=== PATIENT | female | born 1955 | race African-American/Black ===

== ENCOUNTER 2018-10-24 07:57 | Emergency (ER) | payer SELFPAY ==
[2018-10-24] MEDS ORDERED: KETOROLAC 30 MG/ML INJ ONE (09:19)
[2018-10-24] MEDS ORDERED: HYDROCODONE/APAP 10/325 TAB ONE (09:19)
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
--- NOTE | 2018-10-24 11:07 | RAD REPORT ---
EXAM DESCRIPTION: RAD - Thoracic Spine Ap/Lat - 10/24/2018 9:43 am CLINICAL HISTORY: PAIN Radiculopathy COMPARISON: No comparisons FINDINGS: The thoracic spine vertebral body heights and disc spaces are largely maintained. No acute compression fracture. No significant malalignment. A few prominent anterior osteophytes present. IMPRESSION: No acute abnormality is seen.
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
[2018-10-24 14:20] LABS: Urine Blood NEGATIVE (NEG); Urine Glucose NEGATIVE (NEG); Urine Protein 1+ (NEG); Urine Specific Gravity 1.025 (1.005-1.030)
== END 2018-10-24 11:10 | disposition home or self-care (01) ==
LOC: ER 07:57
DX: M54.5 Low back pain (principal); M62.830 Muscle spasm of back; R51 Headache; F17.200 Nicotine dependence, unspecified, uncomplicated
CPT/HCPCS: 70450; 72070; 72100; 72125; 81003; 96372; 99284

== ENCOUNTER 2021-09-06 10:31 | Day surgery (SDC) | payer OTHER ==
[2021-09-06] MEDS ORDERED: Ringers Lactate 1,000 ML IV ONE (11:14)
[2021-09-06] MEDS ORDERED: CELECOXIB 100 MG CAPSULE ONE ×2 (12:43→12:45)
[2021-09-06] MEDS ORDERED: ACETAMINOPHEN 500 MG TAB ONE (12:44)
[2021-09-06] MEDS ORDERED: CELECOXIB 100 MG CAPSULE PO ONE (12:50)
[2021-09-06] MEDS ORDERED: ACETAMINOPHEN 500 MG TAB PO ONE (12:50)
[2021-09-06] MEDS ORDERED: FENTANYL CITR 100 MCG/2 ML ONE (13:04)
[2021-09-06] MEDS ORDERED: MIDAZOLAM HCL 2 MG/2 ML INJ ONE (13:05)
[2021-09-06] MEDS ORDERED: LIDOCAINE 1% MPF 5 ML VIAL ONE (13:05)
[2021-09-06] MEDS ORDERED: propofoL 200 MG/20 ML VIAL IV ONE ×2 (13:05→13:29)
[2021-09-06] MEDS ORDERED: BUPIVACAINE 0.25% PF 10 ML VIAL ONE (13:08)
[2021-09-06] MEDS ORDERED: ALBUTEROL INHALER 60 PUFF/8 GM IH ONE (13:34)
[2021-09-06] MEDS: CEFAZOLIN/SWI 2gm 2 GM/20 ML SYR ONE ×2 (13:45→14:04)
[2021-09-06] MEDS ORDERED: ROCURONIUM 50 MG/5 ML VIAL IV ONE (13:47)
[2021-09-06] MEDS ORDERED: NEOSTIGMINE 1 MG/ML -5 ML ONE (13:53)
[2021-09-06] MEDS ORDERED: dexAMETHasone 10 MG/ML VIAL ONE (13:53)
[2021-09-06] MEDS ORDERED: KETOROLAC 30 MG/ML INJ ONE (13:53)
[2021-09-06] MEDS ORDERED: GLYCOPYRROLATE 0.2 MG/ML SYR ONE (13:53)
[2021-09-06] MEDS ORDERED: ONDANSETRON 4 MG/2 ML VIAL ONE ×2 (13:53→14:29)
[2021-09-06] MEDS ORDERED: SODIUM HYPOCHLORITE 0.25% 473 ML ONE (14:06)
--- NOTE | 2021-09-06 14:13 | P.OP ---
Preoperative diagnosis: RIGHT Buttock Abscesses Postoperative diagnosis: RIGHT Buttock Abscesses Primary procedure: Wide Exicison of multiple RIGHT Buttock Abscesses Anesthesia: GETA + Local Estimated blood loss: <20cc Specimen: Cultures, Debridement Tissues Findings: ~ 7cm x 4 cm x 2 cm wound of RIGHT buttock, ~ 3 cm from anal verge Complications: None Transferred to: Recovery Room Condition: Good
--- NOTE | 2021-09-06 14:51 | OP ---
Date of Procedure: 09/06/2021 Surgeon: Jaleel Negro MD, Preoperative Diagnosis: Right buttock abscess. Postoperative Diagnosis: Right buttock abscess. Procedure Performed: Wide local excision of right buttock multiple abscess sites. Anesthesia: General endotracheal plus local 0.5% Marcaine without epinephrine. Estimated Blood Loss: Less 20 mL. Specimen: Cultures sent both aerobic and anaerobic speciation and debridement tissue. Findings: Approximately 7 cm x 4 cm x 2 cm wound of the right buttock approximately 3 cm from the an al verge. Complications: None. Disposition: The patient transferred to the recovery room in good condition. Procedure In Detail: After informed consent was obtained, the patient was brought to the operating r oom, prepped and draped in the usual sterile fashion. After adequate anesthesia was achieved, an are a of the right buttock was evaluated and approximately an area of 7 cm x 4 cm was being noted to have multiple abscesses draining from this area. A 15 blade was used to cut down an elliptical incision for approximately the above described parameters in the subcutaneous tissues. Electrocautery was use d to dissect down the subcutaneous fat and circumferentially remove the tissue. Culture sent over fo r both aerobic and anaerobic speciation when abscesses were encountered. At this point, the debridem ent tissue was sent off for pathologic examination after being completely ligated from the structures below. I then achieved hemostasis with electrocautery using fulguration circumferentially around. No additional tracts were appreciated at this point. This was approximately 3 cm from the anal verge . I irrigated the area copiously. No additional hemostatic measures were required. The wound was t hen packed with Dakin-soaked Kerlix and a sterile dressing placed over top. The patient tolerated th e procedure without complication and transferred to PACU in good condition. All counts were correct at the end of the case. TK/MODL Voice ID: [id number] Report ID: [id number]
[2021-09-06] MEDS ORDERED: SUCCINYLCHOLINE 20 MG/ML (10 ML) IV ONE (15:23)
[2021-09-06 15:47] VITALS: BP 124/73; TEMP 97; O2SAT 95
== END 2021-09-06 16:17 | disposition home or self-care (01) ==
LOC: OR 10:31
PROVIDERS: ATTEND Surgery
PROC: 0JB90ZZ Excision of Buttock Subcutaneous Tissue and Fascia, Open Approach (ICD-10-PCS; principal; 2021-09-06 13:00)
DX: L72.0 Epidermal cyst (principal); Z20.822 Contact with and (suspected) exposure to COVID-19
CPT/HCPCS: 87070; 87205; 88304; 87075; 11406; U0003; J2704 ×2; J0330; J2250; J3010; J1100; J2710; J0690; J7120; J2405 ×2

== ENCOUNTER 2023-12-18 23:22 | Inpatient (IN) | payer OTHER ==
--- OUTSIDE RECORDS SUMMARY | 2023-12-18 23:25 | XMS REPORT | Continuity of Care Document ---
Author Name Unknown Address [address] [place] [address] [facility] thconnect Address [address] [facility] [place] [address] Care Team Providers Care Heater Room Helper Name Role Phone Pcp, Patient Does Not Have A Primary Care Physic paloma [email or web address] Attending Clinician Unavaila ble TRIKATHY CARRANZA Attending Clinician Unavaila ble KATHY SINHA Attending Clinician Unavaila ble [id number] Admitting Clinician Unavaila ble Payers Payer Name Policy Type Policy Number Effective Date Expirati on Date Source MEDICARE PART A \T\ B [id number] 2019 00:00:00 Problems Condition Name Condition Details Condition Category Status Onset Date Resolution Date Last Treatment Date Treating Clinician Comments Source Perianal abscess Perianal abscess Disease Active 01-31 00:00: 00 [facility] Hidradenit is suppurativ a Hidradenit is suppurativ a Disease Active 01-31 00:00: 00 [facility] Candidal intertrigo Candidal intertrigo Disease Active 01-31 00:00: 00 [facility] Morbid obesity with body mass index (BMI) of 40.0 or higher Morbid obesity with body mass index (BMI) of 40.0 or higher Disease Active 01-31 00:00: 00 [facility] Benign essential hypertensi on, with delivery, with current complicati on Benign essential hypertensi on, with delivery, with current complicati on Disease Active 01-31 00:00: 00 [facility] Social History Social Habit Start Date Stop Date Quantity Comments Source History of tobacco use Cigarette Smoker [facility] Alcohol intake 2022-02-07 00:00:00 2022-02-07 00:00:00 Ex-drinker (finding) [facility] Tobacco use and exposure 2022-01-31 00:00:00 2022-01-31 00:00:00 Never used [facility] Sex Assigned At 1955 00:00:00 1955 00:00:00 [facility] Smoking Status Start Date Stop Date Source Former smoker 2022-01-31 00:00:00 2022-01-31 00:00:00 [facility] Medications Ordered Medication Name Filled Medication Name Start Date Stop Date Current Medication? Ordering Clinician Indication Dosage Frequency Signature (SIG) Comments Components Source losartan-hy drochloroth iazide 50-12.5 mg per tablet 01-31 10:00: 27 Yes losartan 50 mg-hydroch lorothiazi de 12.5 mg tablet TAKE 1 TABLET BY MOUTH EVERY DAY [facility] Encounters Start Date/Time End Date/Time Encounter Type Admission Type Attending Clinicians Care Facility Care Department Encounter ID Source 2023-07-18 00:00:00 2023-07-18 00:00:00 Outpatient [email or web address] [email or web address]_S [facility] [id number] [facility] 2022-02-28 13:45:00 2022-02-28 13:45:00 Outpatient KATHY NEWMAN [facility] [id number] [facility] 2022-02-27 00:00:00 2022-02-27 00:00:00 Telephone Kathy Sinha [facility] [id number] [facility] 2022-02-07 11:15:00 2022-02-07 11:57:45 Outpatient R KATHY SINHA [facility] [id number] [facility] 2022-02-07 11:15:00 2022-02-07 11:57:45 Office Visit Kathy Sinha [facility] [id number] [facility] 2022-02-07 11:15:00 2022-02-07 11:15:00 Outpatient R KATHY SINHA [facility] [id number] [facility] 2022-01-31 09:00:00 2022-01-31 10:21:28 Office Visit Kathy Sinha [facility] [id number] [facility] 2022-01-31 09:00:00 2022-01-31 10:21:28 Outpatient R KATHY SINHA [facility] [id number] [facility]
[2023-12-19] MEDS ORDERED: ONDANSETRON 4 MG/2 ML VIAL ONE ×2 (00:02→11:46)
[2023-12-19] MEDS ORDERED: MORPHINE 4 MG/ML SYR ONE (00:03)
[2023-12-19] MEDS ORDERED: NA CHLORIDE 0.9% 1,000 ML ONE (00:03)
[2023-12-19 00:23] LABS: Specific Gravity 1.025 (1.005-1.030); Sqamous Epithelial <5 /HPF (None Seen); Urine Bacteria <20 /HPF (<20); Urine Bilirubin NEGATIVE (Negative); Urine Blood Negative (Negative); Urine Clarity Turbid (Clear); Urine Color Yellow (Yellow); Urine Crystals Unidentified Few /HPF (None Seen); Urine Culture Reflex Order NOT NEEDED; Urine Glucose NEGATIVE (Negative); Urine Ketones 1+ (Negative); Urine Microscopic Reflex YN ORDER UMIC; Urine Mucus Slight /HPF (None Seen); Urine Nitrite NEGATIVE (Negative); Urine Protein 2+ (Negative); Urine RBC <5 /HPF (None Seen); Urine Urobilinogen 2+ (Normal); Urine WBC <5 /HPF (<5); Urine pH 8.5 (5.0-7.0)
[2023-12-19 00:53] LABS: Albumin 2.6 g/dL (3.4-5.0); Albumin/Globulin Ratio 0.5 (1.1-1.8); Anion Gap 9.7 mEq/L (5.0-15.0); Bilirubin Total 0.4 mg/dL (0.2-1.0); Globulin 5.4 g/dL (2.3-3.5); Potassium 3.7 mEq/L (3.5-5.1)
[2023-12-19 01:03] LABS: Absolute Eosinophils 0.2 K/uL (0-0.5); Absolute Monocytes 0.6 K/uL (0.1-1.3); Absolute Neutrophil 7.5 K/uL (1.8-8.0); Basophils % 0.4 % (0-1.3); Eosinophils % 1.7 % (0-4.4); Hematocrit 36.3 % (36.0-45.0); Hemoglobin 12.1 g/dL (12.0-15.0); Lymphocytes % 11.1 % (15.3-44.8); MCHC 33.3 g/dL (32.0-36.0); MPV 8.3 fL (7.6-11.3); Neutrophils % 80.8 % (41.7-73.7); Platelets 423 thou/uL (152-406); RBC Red Blood Cell Count 4.33 M/uL (3.86-4.86)
[2023-12-19] MEDS ORDERED: FENTANYL CITR 100 MCG/2 ML ONE ×3 (01:11→12:58)
[2023-12-19] MEDS ORDERED: PROMETHAZINE INJ 25 MG/ML AMP ONE ×2 (01:11→01:56)
[2023-12-19] MEDS ORDERED: NA CHLORIDE 0.9% 100 ML ONE ×2 (01:56→11:13)
[2023-12-19] MEDS ORDERED: PIPERACIL/TAZO 3.375 GM VIAL IV ONE ×2 (01:56→11:13)
--- NOTE | 2023-12-19 02:10 | ER ---
Nurse's Notes [facility] Name: Chris Mahan Age: 68 yrs Sex: Female : 1955 Arrival Date: 12/18/2023 Time: 23:22 Bed 14 Private MD: Diagnosis: Other cholelithiasis without obstruction Presentation: 12/17 23:25 Chief complaint: Patient states: lower abdominal pain of 10, epigastric pain that pf1 radiates to RUQ and wraps around to the right back,onset 2-3 weeks with nausea and vomiting. 23:25 Method Of Arrival: EMS: [facility] pf1 23:43 Coronavirus screen: Client denies travel out of the [place] in the last 14 days. At this lg3 time, the client does not indicate any symptoms associated with coronavirus-19. Ebola Screen: No symptoms or risks identified at this time. Initial Sepsis Screen: Does the patient meet any 2 criteria? No. Patient's initial sepsis screen is negative. Does the patient have a suspected source of infection? No. Patient's initial sepsis screen is negative. Risk Assessment: Do you want to hurt yourself or someone else? Patient reports no desire to harm self or others. Onset of symptoms is unknown. 23:43 Acuity: NANCY 3 lg3 Historical: - Allergies: 12/18 00:31 No Known Allergies; pf1 - PMHx: 00:31 Hypertensive disorder; Depressive disorder; pf1 00:31 HS; pf1 - PSHx: 00:31 drainage from buttocks; pf1 - Immunization history:: Adult Immunizations not up to date, Client reports receiving the 2nd dose of the Covid vaccine, pfizer Last tetanus immunization: > 10 years ago Flu vaccine is not up to date. - Social history:: Smoking status: Patient reports the use of cigarette tobacco products, denies chronic smoking, but will smoke occasionally, Patient/guardian denies using alcohol, street drugs. - Family history:: not pertinent. Screenin/29 23:43 [facility] ED Fall Risk Assessment (Adult) History of falling in the last 3 months, lg3 including since admission No falls in past 3 months (0 pts) Confusion or Disorientation No (0 pts) Intoxicated or Sedated No (0 pts) Impaired Gait No (0 pts) Mobility Assist Device Used No (0 pt) Altered Elimination No (0 pt) Score/Fall Risk Level 0 - 2 = Low Risk Oriented to surroundings, Maintained a safe environment, Educated pt \T\ family on fall prevention, incl call for assistance when getting out of bed, Assessed \T\ reinforced patient's understanding of fall precautions. Abuse screen: Denies threats or abuse. Denies injuries from another. Nutritional screening: No deficits noted. Tuberculosis screening: No symptoms or risk factors identified. Assessment: 23:43 General: Appears in no apparent distress. uncomfortable, Behavior is calm, cooperative. lg3 Pain: Complains of pain in epigastric area Pain radiates to back Pain currently is 10 out of 10 on a pain scale. Noted to be crying, grimacing, guarding, moaning, resistant to movement. Neuro: No deficits noted. Smith Agitation-Sedation Scale (RASS): 0 - Alert and Calm Level of Consciousness is awake, alert, obeys commands, Oriented to person, place, time, situation. Cardiovascular: No deficits noted. Denies chest pain, shortness of breath, Heart tones S1 S2 present Capillary refill < 3 seconds Clubbing of nail beds is absent JVD is absent Patient's skin is warm and dry. Respiratory: No deficits noted. Airway is patent Respiratory effort is even, unlabored, Respiratory pattern is regular, symmetrical, Breath sounds are clear bilaterally. GI: Abdomen is round non-distended, obese, Bowel sounds present X 4 quads. Abd is soft X 4 quads Abdomen is tender to palpation in epigastric area and right upper quadrant Reports upper abdominal pain, epigastric pain, nausea, vomiting. : No deficits noted. No signs and/or symptoms were reported regarding the genitourinary system. EENT: No deficits noted. No signs and/or symptoms were reported regarding the EENT system. Derm: No deficits noted. No signs and/or symptoms reported regarding the dermatologic system. Skin is intact, is healthy with good turgor, Skin is dry, Skin is normal, Skin temperature is warm. Musculoskeletal: No deficits noted. No signs and/or symptoms reported regarding the musculoskeletal system. Circulation, motion, and sensation intact. Range of motion: intact in all extremities. 12/18 00:09 GI: Pt is actively vomiting clear fluid, undigested food. lg3 Vital Signs: 12/17 23:30 BP 149 / 74; Pulse 75; Resp 16 S; Pulse Ox 100% on R/A; lg3 03 01:19 BP 164 / 70; Pulse 65; Resp 17 S; Temp 98.8(O); Pulse Ox 100% on R/A; Pain 10/10; lg3 02:14 BP 127 / 63; Pulse 76; Resp 17 S; Pulse Ox 96% on R/A; lg3 12/18 01:19 Pain Scale: Adult lg3 ED Course: 12/17 23:25 Patient arrived in ED. lg3 23:26 Jurgen Garcia MD is Attending Physician. rt 23:43 Lisa Knott, AIDE is Primary Nurse. lg3 23:43 Patient has correct armband on for positive identification. Placed in gown. Bed in low lg3 position. Call light in reach. Side rails up X 1. Client placed on continuous cardiac and pulse oximetry monitoring. NIBP monitoring applied. Door closed. Noise minimized. Warm blanket given. Family accompanied patient. 23:43 Arm band placed on left wrist. lg3 23:43 Initial lab(s) drawn, by me, sent to lab. Urine collected: clean catch specimen, clear. lg3 Maintain EMS IV. Dressing intact. Good blood return noted. Site clean \T\ dry. Gauge \T\ site: 20 L Hand. Patient maintains SpO2 saturation greater than 95% on room air. 12/18 00:07 Abdomen Limited US In Process Unspecified. EDMS 00:13 Inserted saline lock: 22 gauge in right antecubital area, using aseptic technique. oe 02:09 Taryn Montanez MD is Hospitalizing Provider. rt 02:09 Warm blanket given. oe 06:00 Triage completed. lg3 06:00 No provider procedures requiring assistance completed. Patient admitted, IV remains in lg3 place. Administered Medications: 00:10 Drug: NS 0.9% IV 1000 ml IV at 1 bolus Per protocol; 1000 mL bolus Route: IV; Rate: 1 lg3 bolus; Site: left hand; 01:18 Follow up: IV Status: Completed infusion; IV Intake: 1000ml lg3 00:10 Drug: Ondansetron IVP 4 mg IVP once; over 2 minutes Route: IVP; Site: left hand; lg3 01:18 Follow up: Response: No adverse reaction; No change in condition; Vomiting unchanged lg3 00:10 Drug: morphine IVP or IV 4 mg IVP once over 4 mins Route: IVP; Infused Over: 4 mins; lg3 Site: left hand; 01:18 Follow up: Response: No adverse reaction; No change in condition; Pain is unchanged, lg3 physician notified 01:19 Drug: Promethazine IVP 12.5 mg IVP once Route: IVP; Site: right antecubital; lg3 02:16 Follow up: Response: No adverse reaction; No change in condition lg3 01:19 Drug: fentaNYL (PF) IVP 50 mcg IVP once Route: IVP; Site: right antecubital; lg3 02:16 Follow up: Response: No adverse reaction; Marked relief of symptoms; Pain is decreased lg3 02:07 Drug: Promethazine IVP 12.5 mg IVP once Route: IVP; Site: right antecubital; lg3 02:16 Follow up: Response: No adverse reaction; Marked relief of symptoms lg3 02:07 Drug: Piperacillin-Tazobactam IVPB 3.375 grams IVPB once over 60 mins; (mix in NS 100 lg3 mL) Route: IVPB; Infused Over: 60 mins; Site: right antecubital; 04:01 Follow up: Response: No adverse reaction; IV Status: Completed infusion; IV Intake: lg3 100ml Medication: 06:01 VIS not applicable for this client. lg3 Intake: 01:18 IV: 1000ml; Total: 1000ml. lg3 04:01 IV: 100ml; Total: 1100ml. lg3 Outcome: 02:10 Decision to Hospitalize by Provider. rt 06:00 Admitted to ER Hold. Please see [facility] for further documentation. lg3 06:00 Condition: stable 06:00 Instructed on the need for admit, Demonstrated understanding of instructions, 11:49 Patient left the ED. kc6 Signatures: Dispatcher [employer] EDMS Kaushik Kwan Lacie, RN RN lg3 Anjali Alvarez RN RN kc6 Jurgen Garcia MD MD rt Loretta Johns RN RN pf1 Corrections: (The following items were deleted from the chart) 00:33 00:31 PMHx: drainage from buttocks; pf1 pf1 01:20 01:19 BP 164 / 70; Pulse 65bpm; Resp 17bpm; Spontaneous; Pulse Ox 100% RA; Pain 10/, lg3 Adult; lg3
--- NOTE | 2023-12-19 02:10 | EDPHYS ---
Physician Documentation [facility] Name: Chris Mahan Age: 68 yrs Sex: Female : 1955 Arrival Date: 12/18/2023 Time: 23:22 Bed 14 Private MD: ED Physician Jurgen Garcia HPI: 12/18 04:30 This 68 yrs old Black Female presents to ER via EMS with complaints of Abdominal pain. rt 04:30 Patient presents to the ED with intermittent right upper quadrant pain for the past rt week, worse after eating. Patient states that the symptoms have significantly worsened tonight with nausea, vomiting. Denies other acute complaints at this time, symptoms are moderate in severity, no other aggravating or alleviating factors. Historical: - Allergies: 00:31 No Known Allergies; pf1 - PMHx: 00:31 Hypertensive disorder; Depressive disorder; pf1 00:31 HS; pf1 - PSHx: 00:31 drainage from buttocks; pf1 - Immunization history:: Adult Immunizations not up to date, Client reports receiving the 2nd dose of the Covid vaccine, pfizer Last tetanus immunization: > 10 years ago Flu vaccine is not up to date. - Social history:: Smoking status: Patient reports the use of cigarette tobacco products, denies chronic smoking, but will smoke occasionally, Patient/guardian denies using alcohol, street drugs. - Family history:: not pertinent. ROS: 04:30 Constitutional: Negative for fever, chills, and weight loss, Cardiovascular: Negative rt for chest pain, palpitations, and edema, Respiratory: Negative for shortness of breath, cough, wheezing, and pleuritic chest pain, MS/Extremity: Negative for injury and deformity, Skin: Negative for injury, rash, and discoloration, Neuro: Negative for headache, weakness, numbness, tingling, and seizure, Psych: Negative for depression, anxiety, suicide ideation, homicidal ideation, and hallucinations, 04:30 Abdomen/GI: Positive for abdominal pain, nausea and vomiting, Exam: 04:30 Constitutional: This is a well developed, well nourished patient who is awake, alert, rt and in no acute distress. Head/Face: Normocephalic, atraumatic. Chest/axilla: Normal chest wall appearance and motion. Nontender with no deformity. No lesions are appreciated. Cardiovascular: Regular rate and rhythm with a normal S1 and S2. No gallops, murmurs, or rubs. Normal PMI, no JVD. No pulse deficits. Respiratory: Lungs have equal breath sounds bilaterally, clear to auscultation and percussion. No rales, rhonchi or wheezes noted. No increased work of breathing, no retractions or nasal flaring. Skin: Warm, dry with normal turgor. Normal color with no rashes, no lesions, and no evidence of cellulitis. MS/ Extremity: Pulses equal, no cyanosis. Neurovascular intact. Full, normal range of motion. Neuro: Awake and alert, GCS 15, oriented to person, place, time, and situation. Cranial nerves II-XII grossly intact. Motor strength 5/5 in all extremities. Sensory grossly intact. Cerebellar exam normal. Normal gait. 04:30 Abdomen/GI: Tenderness to the right upper quadrant with mild guarding, no rebound, distention, Vital Signs: 12/17 23:30 BP 149 / 74; Pulse 75; Resp 16 S; Pulse Ox 100% on R/A; lg3 12/18 01:19 BP 164 / 70; Pulse 65; Resp 17 S; Temp 98.8(O); Pulse Ox 100% on R/A; Pain 10/10; lg3 02:14 BP 127 / 63; Pulse 76; Resp 17 S; Pulse Ox 96% on R/A; lg3 12/18 01:19 Pain Scale: Adult lg3 MDM: 12/17 23:26 Patient medically screened. rt 12/18 04:30 Differential Diagnosis Cholecystitis, cholelithiasis, pancreatitis. Data reviewed: rt vital signs, nurses notes, lab test result(s), radiologic studies. Consideration of Admission/Observation Patient was admitted/placed on observation. Management of patient was discussed with the following: Cafeteria Counter Attendant: Discussed with general surgery on-call, request hospitalist admission, will operate. I considered the following discharge prescriptions or medication management in the emergency department Medications were administered in the Emergency Department. See MAR. Test considered but Not performed: CT: Clear stone in the gallbladder neck without signs of pancreatitis, CT scan is not indicated. Care significantly affected by the following chronic conditions: Hypertension. Counseling: I had a detailed discussion with the patient and/or guardian regarding the historical points, exam findings, and any diagnostic results supporting the discharge/admit diagnosis, lab results, radiology results, the need for further work-up and treatment in the hospital. Response to treatment: the patient's symptoms have mildly improved after treatment. 12/17 23:27 Order name: CBC with Diff; Complete Time: 01:09 rt 12/17 23:27 Order name: CMP; Complete Time: 01:09 rt 12/17 23:27 Order name: Lipase; Complete Time: 01:09 rt 12/17 23:27 Order name: Urinalysis w/ reflexes; Complete Time: 00:47 rt 12/18 03:41 Order name: CBC with Automated Diff; Complete Time: 04:47 EDMS 12/18 03:41 Order name: Comprehensive Metabolic Panel; Complete Time: 04:47 EDMS 12/18 03:41 Order name: Lipase; Complete Time: 04:47 EDMS 12/18 03:41 Order name: Protime (+INR); Complete Time: 04:47 EDMS 12/18 03:41 Order name: PTT, Activated Partial Thromb; Complete Time: 04:47 EDMS 12/18 10:44 Order name: Phosphorus EDMS 12/18 10:44 Order name: Magnesium EDMS 12/17 23:27 Order name: Abdomen Limited US rt 12/18 03:41 Order name: CONS Physician Consult EDMS 12/17 23:27 Order name: IV Saline Lock; Complete Time: 23:46 rt 12/17 23:27 Order name: Labs collected and sent; Complete Time: 23:46 rt Administered Medications: 00:10 Drug: NS 0.9% IV 1000 ml IV at 1 bolus Per protocol; 1000 mL bolus Route: IV; Rate: 1 lg3 bolus; Site: left hand; 01:18 Follow up: IV Status: Completed infusion; IV Intake: 1000ml lg3 00:10 Drug: Ondansetron IVP 4 mg IVP once; over 2 minutes Route: IVP; Site: left hand; lg3 01:18 Follow up: Response: No adverse reaction; No change in condition; Vomiting unchanged lg3 00:10 Drug: morphine IVP or IV 4 mg IVP once over 4 mins Route: IVP; Infused Over: 4 mins; lg3 Site: left hand; 01:18 Follow up: Response: No adverse reaction; No change in condition; Pain is unchanged, lg3 physician notified 01:19 Drug: Promethazine IVP 12.5 mg IVP once Route: IVP; Site: right antecubital; lg3 02:16 Follow up: Response: No adverse reaction; No change in condition lg3 01:19 Drug: fentaNYL (PF) IVP 50 mcg IVP once Route: IVP; Site: right antecubital; lg3 02:16 Follow up: Response: No adverse reaction; Marked relief of symptoms; Pain is decreased lg3 02:07 Drug: Promethazine IVP 12.5 mg IVP once Route: IVP; Site: right antecubital; lg3 02:16 Follow up: Response: No adverse reaction; Marked relief of symptoms lg3 02:07 Drug: Piperacillin-Tazobactam IVPB 3.375 grams IVPB once over 60 mins; (mix in NS 100 lg3 mL) Route: IVPB; Infused Over: 60 mins; Site: right antecubital; 04:01 Follow up: Response: No adverse reaction; IV Status: Completed infusion; IV Intake: lg3 100ml Disposition Summary: 12/19/23 02:10 Hospitalization Ordered Notes: Hospitalization Status: Observation rt Provider: Taryn Montanez rt Condition: Stable rt Problem: new rt Symptoms: have improved rt Bed/Room Type: Standard rt Location: [facility] ER HOLD(12/19/23 02:40) cg Room Assignment: ERHOLD-(12/19/23 02:40) cg Diagnosis - Other cholelithiasis without obstruction rt Forms: - Medication Reconciliation Form rt - SBAR form rt - Leadership Thank You Letter rt Signatures: Dispatcher [employer] Christiane Catalan RN RN cg Lisa Knott RN RN lg3 Jurgen Garcia MD MD rt Loretta Johns RN RN pf1 Corrections: (The following items were deleted from the chart) 00:33 00:31 PMHx: drainage from buttocks; pf1 pf1 02:40 02:10 Telemetry/MedSurg (observation) rt cg 02:40 02:10 rt cg
[2023-12-19] MEDS ORDERED: ACETAMINOPHEN 500 MG TAB PO PRN (03:32)
--- NOTE | 2023-12-19 03:40 | P.HP ---
Certification for Inpatient Patient admitted to: Observation With expected LOS: <2 Midnights Patient will require the following post-hospital care: None Practitioner: I am a practitioner with admitting privileges, knowledge of patient current condition, hospital course, and medical plan of care. Services: Services provided to patient in accordance with Admission requirements found in Title 42 Section 412.3 of the Code of Federal Regulations Patient History Date of Service: 12/19/23 Reason for admission: Abdominal pain; intractable nausea and vomiting; biliary colic History of Present Illness: Patient is a 68-year-old female came to the hospital with abdominal pain. Patient's pain started a couple days ago. She started having intractable nausea and vomiting. Patient came to the emergency room after she was not really getting any better. In the emergency room workup revealed cholelithiasis. No evidence of choledocholithiasis. Patient appears to be having biliary colic with nausea and vomiting. LFTs were fairly unremarkable. Emergency room physician spoke with general surgery and they wanted to admit the patient for further workup for acute cholecystitis. Patient will be kept n.p.o. while surgery follows up with patient. Patient also has a history of hidradenitis suppurativa. Patient follows up with surgery as an outpatient. At this time patient be admitted for further workup. Allergies No Known Allergies Allergy (Verified 07/01/22 15:35) Home Medications: Sertraline HCl 100 mg PO DAILY 12/19/23 Spironolactone 50 mg PO DAILY 12/19/23 - Past Medical/Surgical History -: HS -: Hypertension -: Depression -: Surgery for HS - Family History Father Family History: Reviewed- Non-Contributory - Social History Smoking Status: Former smoker Alcohol use: No CD- Drugs: No Review of Systems 10-point ROS is otherwise unremarkable Physical Examination - Physical Exam General: Alert, In no apparent distress, Oriented x3 HEENT: Atraumatic, PERRLA, Mucous membr. moist/pink, EOMI, Sclerae nonicteric Neck: Supple, 2+ carotid pulse no bruit, No LAD, Without JVD or thyroid abnormality Respiratory: Clear to auscultation bilaterally, Normal air movement Cardiovascular: Regular rate/rhythm, Normal S1 S2 Gastrointestinal: Normal bowel sounds, No tenderness Musculoskeletal: No tenderness Integumentary: No rashes Neurological: Normal gait, Normal speech, Normal strength at 5/5 x4 extr, Normal tone, Normal affect Lymphatics: No axilla or inguinal lymphadenopathy - Studies Laboratory Data (last 24 hrs) 12/19/23 12/19/23 00:23 00:23 WBC 9.30 Hgb 12.1 Hct 36.3 Plt Count 423 H Sodium 141 Potassium 3.7 BUN 14 Creatinine 1.03 H Glucose 119 H Total Bilirubin 0.4 AST 11 L ALT 19 Alkaline Phosphatase 114 Lipase 39 Assessment & Plan - Problems (Diagnosis) (1) Cholelithiasis Current Visit: Yes Status: Acute (2) Biliary colic Current Visit: Yes Status: Acute (3) Intractable nausea and vomiting Current Visit: Yes Status: Acute (4) History of hypertension Current Visit: Yes Status: Acute (5) Hidradenitis suppurativa Current Visit: Yes Status: Acute (6) History of depression Current Visit: Yes Status: Acute - Plan Plan: 1. Patient with biliary colic with cholelithiasis; LFTs are within normal limits. At this time, we will continue with IV fluids and IV antibiotics. Surgery consultation pending. Repeat labs. Patient needs to altered diet and stick to a low-fat diet going forward. Patient may benefit from ursodiol if patient is not going to get surgical intervention. Continue with antiemetics for patient with intractable nausea and vomiting. 2. Patient with a history of hidradenitis suppurativa; patient with a history of surgical intervention. Patient will probably need to follow-up with rheu matology or dermatology for further evaluation with biologic therapy to see if this would benefit and control her disease. As long as her clinical condition is stable she can continue to monitor closely. However, this appears to be more of a systemic inflammatory disease and probably needs further monitoring by dermatology or rheumatology. 3. History of hypertension; resume antihypertensives 4. History of depression; resume antidepressants 5. GI DVT prophylaxis Discharge Plan: Home Plan to discharge in: Greater than 2 days - Advance Directives Does patient have a Living Will: No Does patient have a Durable POA for Healthcare: No - Code Status/Comfort Care Code Status Assessed: Yes Code Status: Full Code Critical Care: No Time Spent Managing PTS Care (In Minutes): 45
[2023-12-19] MEDS: Levofloxacin500mg IV 500 MG/100 ML BAG IV ONE (04:00)
[2023-12-19] MEDS: NA CHLORIDE 0.9% 1,000 ML IV SCH (04:00)
[2023-12-19 04:28] LABS: Absolute Basophils 0.1 K/uL (0-0.5); Absolute Monocytes 0.6 K/uL (0.1-1.3); Absolute Neutrophil 8.9 K/uL (1.8-8.0); Basophils % 0.6 % (0-1.3); Eosinophils % 0.4 % (0-4.4); Hemoglobin 11.8 g/dL (12.0-15.0); Lymphocytes % 9.4 % (15.3-44.8); MCH 28.4 pg (27.0-35.0); MCHC 33.8 g/dL (32.0-36.0); MCV 83.9 fL (80-100); MPV 7.6 fL (7.6-11.3); Monocytes % 5.5 % (3.3-12.3); Neutrophils % 84.1 % (41.7-73.7); Nucleated Red Blood Cells % 0.2 % (0-0); Platelets 386 thou/uL (152-406); RBC Red Blood Cell Count 4.17 M/uL (3.86-4.86)
[2023-12-19 04:37] LABS: PT Prothrombin Time 12.9 SECONDS (9.5-12.5); PTT, Activated Partial Thromb 29.9 SECONDS (24.3-36.9); Protime INR 1.18
[2023-12-19 04:46] LABS: Albumin 2.5 g/dL (3.4-5.0); Albumin/Globulin Ratio 0.5 (1.1-1.8); Anion Gap 6.8 mEq/L (5.0-15.0); Bilirubin Total 0.5 mg/dL (0.2-1.0); Globulin 5.1 g/dL (2.3-3.5); Potassium 3.8 mEq/L (3.5-5.1); Protein, Total 7.6 g/dL (6.4-8.2)
[2023-12-19] MEDS: METRONIDAZOLE 500mg IVPB 500 MG/100 ML BAG IV SCH (05:34)
[2023-12-19] MEDS: ONDANSETRON 4 MG/2 ML VIAL IV PRN (06:47)
[2023-12-19] MEDS: HYDROMORPHONE HCL 1 MG/ML INJ IV PRN (06:47)
--- NOTE | 2023-12-19 07:44 | P.PN ---
Date of Service: 12/20/23 Subjective: ROS: 10 point ROS as noted above, otherwise negative Physical Exam: GEN: Alert, oriented, NAD HEENT: Normal conjunctiva, sclera anicteric CV: Regular rate and rhythm, no edema Pulm: Nonlabored respirations on room air, clear bilaterally ABD: Soft, RUQ tenderness, surgical dressing in place Neuro: Normal speech, normal affect vitals reviewed Problem List: acute gangrenous cholecystitis with Cholelithiasis, now s/p lap alicia with ICG cholangiography (12/18) Biliary colic Intractable nausea/vomiting hx of hidradenitis suppurativa Hypertension Depression acute gangrenous cholecystitis with Cholelithiasis, now s/p lap alicia with ICG cholangiography (12/18) Biliary colic Intractable nausea/vomiting Reports lower abdominal / epigastric pain radiating to RUQ with associated nausea/vomiting for ~2-3 weeks abdominal u/s (12/17): cholelithiasis and gallbladder sludge. no gallbladder wall thickening. negative de luna signs. incidentally noted increased hepatic echogenicity which can be seen in hepatic steatosis / fibrofatty change Dr. Negro, general surgery consulted to eval for possible surgical intervention s/p lap alicia with ICG cholangiography (12/18) found to have gallbladder completely encased in omental attachments, with gangrenous changes at the gallbladder fundus, along with severe extensive adhesions, short cystic duct, impacted stone in gallbladder neck region. serial abdominal exams diet per surgery given zosyn in ED, levaquin / flagyl (12/18) continue empiric zosyn (12/18-) PRN analgesics / antiemetics continue IV fluids hx of hidradenitis suppurativa follows up with surgery as outpatient Hypertension Depression confirm home meds, restart as appropriate VTE: Lovenox Code: Full Dispo: Home, ~1-2 days Pending surgical recs / recovery
[2023-12-19] MEDS: ENOXAPARIN 40 MG/0.4 ML SQ SCH (08:35)
[2023-12-19 10:43] LABS: Magnesium 2.2 mg/dL (1.6-2.4); Phosphorus 2.2 mg/dL (2.5-4.9)
[2023-12-19] MEDS ORDERED: HYDROMORPHONE HCL 0.5 MG/0.5 ML INJ ONE (10:43)
[2023-12-19] MEDS ORDERED: METRONIDAZOLE 500mg IVPB 500 MG/100 ML BAG IV ONE (10:44)
[2023-12-19] MEDS: PIPER TAZO 3.375 GM in NA CHLORIDE 0.9% 100 ML IV SCH (11:15)
[2023-12-19] MEDS ORDERED: ROCURONIUM 50 MG/5 ML VIAL IV ONE (11:43)
[2023-12-19] MEDS ORDERED: propofoL 200 MG/20 ML VIAL IV ONE (11:43)
[2023-12-19] MEDS ORDERED: MIDAZOLAM HCL 2 MG/2 ML INJ ONE (11:43)
[2023-12-19] MEDS ORDERED: NEOSTIGMINE 1 MG/ML -10 ML VIAL ONE (11:46)
[2023-12-19] MEDS ORDERED: KETOROLAC 30 MG/ML INJ ONE (11:46)
[2023-12-19] MEDS ORDERED: dexAMETHasone 4 MG/ML VIAL ONE (11:46)
[2023-12-19] MEDS ORDERED: LIDOCAINE 1% MPF 5 ML VIAL ONE (11:46)
[2023-12-19] MEDS ORDERED: GLYCOPYRROLATE 0.2 MG/ML SYR ONE (11:46)
[2023-12-19] MEDS: Ringers Lactate 1,000 ML IV ONE (12:00)
--- NOTE | 2023-12-19 14:20 | P.OP ---
Preoperative diagnosis: Cholelithiasis with cholecystitis Postoperative diagnosis: Cholelithiasis with cholecystitis Primary procedure: Laparoscopic Cholecystectomy with ICG Cholangiography Anesthesia: GETA + Local Estimated blood loss: <20cc Specimen: Gallbladder Findings: Gangrene @ fundus, Severe adhesions, short cystic duct, stone impacted Complications: None Implants: Crow Hemostatic Powder Matrix Transferred to: Recovery Room Condition: Good
[2023-12-19] MEDS ORDERED: NALOXONE 0.4 MG/ML VIAL ONE (14:25)
[2023-12-19] MEDS: BUPIVACAINE 0.25% PF 30 ML VIAL ONE (14:45)
[2023-12-19] MEDS: LABETALOL 20 MG/4ML SYRINGE IV ONE (14:45)
[2023-12-19] MEDS: NA CHLORIDE 0.9% 1,000 ML ONE (15:01)
[2023-12-19 15:29] VITALS: O2SAT 96
[2023-12-19 16:04] LABS: Absolute Basophils 0.1 K/uL (0-0.5); Absolute Eosinophils 0.1 K/uL (0-0.5); Absolute Lymphocytes (CBC) 1.5 K/uL (0.7-4.9); Absolute Monocytes 0.6 K/uL (0.1-1.3); Absolute Neutrophil 13.9 K/uL (1.8-8.0); Basophils % 0.5 % (0-1.3); Eosinophils % 0.3 % (0-4.4); Hematocrit 36.2 % (36.0-45.0); Lymphocytes % 9.1 % (15.3-44.8); MCH 28.1 pg (27.0-35.0); MCHC 33.2 g/dL (32.0-36.0); MCV 84.7 fL (80-100); MPV 8.1 fL (7.6-11.3); Monocytes % 3.7 % (3.3-12.3); Neutrophils % 86.4 % (41.7-73.7); Nucleated Red Blood Cells % 0.2 % (0-0); Platelets 307 thou/uL (152-406); RBC Red Blood Cell Count 4.27 M/uL (3.86-4.86); Red Cell Distribution Width 14.2 % (12.1-15.2)
--- NOTE | 2023-12-19 16:09 | OP ---
Date of Procedure: 12/19/2023 Surgeon: Jaleel Negro MD, Preoperative Diagnosis: Cholelithiasis with cholecystitis. Postoperative Diagnosis: Cholelithiasis with cholecystitis. Procedure Performed: Laparoscopic cholecystectomy with indocyanine green cholangiography. Anesthesia: General endotracheal plus local with 0.25% Marcaine. Estimated Fluid Loss: Less than 20 cc. Specimen: Gallbladder. Findings: 1.There were gangrenous changes at the gallbladder fundus. 2.Gallbladder was socked in, completely encased in omental attachments, which were firm, fibrous, th ick, with severe adhesions. 3.There was a short cystic duct. 4.There was a stone impacted in the Analy's pouch of the gallbladder in the gallbladder neck isidro on. 5.There were severe hydropic changes to the gallbladder. 6.The gallbladder had thick viscous black bile and sludge. Procedure In Detail: After informed consent was obtained, the patient brought to the operating room, prepped and draped in the usual sterile fashion. After adequate anesthesia was achieved, I made a s upraumbilical incision down through subcutaneous tissues. I dissected down with a 5 mm zero degree o ptical bariatric trocar which was entered in the abdomen safely with no incident or complication. In sufflation was obtained to 15 mmHg at this time. There was no injury or bowel obstruction within the abdomen. 3 additional trocars were placed, 1 in the epigastrium, 1 in the right upper quadrant, 1 i n the right mid abdomen. All of these were placed under direct visualization without incident or com plication. The patient was then positioned head up right side up position. Ratcheted graspers attem pted to grasp the patient's gallbladder at the fundus of the gallbladder which was completely encased in omentum and not visualized during the entry into the abdomen. At this point, the ratcheted grasp ers dissected down some omental tension up off the anterior surface of the gallbladder to expose the fundus of the gallbladder. Careful dissection was required to remove the omental attachments using c ombination of blunt dissection and electrocautery to remove the omentum which was completely encased in the gallbladder at this point, which had a hydropic appearance and some gangrenous changes to the fundus of the gallbladder. After I removed most of the adhesions off the anterior surface of the gal lbladder, the gallbladder remained difficult to grasp, and as such, I placed decompression needle aft er I removed approximately half the omental attachments of the anterior surface of the gallbladder an d the gallbladder was visualized. At this point, a decompression needle was placed into the fundus o f the gallbladder with thick viscous black sludge material was partially decompressed. However, the material was so thick, suction on maximum could only move a small amount of it. The gallbladder agustin ined distended throughout the procedure and filled with bile and sludge as well as gallstones after I was able to grasp the gallbladder. However, I did grasp the patient's gallbladder at the fundus and placed it towards the patient's right shoulder. However, there was minimal space to work in due to intraabdominal obesity/adipose tissue as well as a small working space due to the anatomic orientatio n of the patient's organs. As the gallbladder was placed towards the right shoulder, the dissection continued down to remove the omental attachments of the entrance of the surface of the gallbladder us ing combination of blunt dissection as well as electrocautery. Ultimately used the LigaSure device a s well to take down some of these adhesions as they were quite thick and fibrous making dissection qu ite challenging at this point. After I removed and visualized the neck of the gallbladder, I perform ed indocyanine green cholangiography to visualize the cystic common duct junction. There was short c ystic duct noted at this point. However, I was able to dissect this free circumferentially around. The Analy pouch of the gallbladder was quite hydropic with significant inflammatory changes and a dissection was performed in this area to visualize 2 structures identified as both the cystic duct an d cystic artery. At this point, the critical view of safety was obtained at this point with the shor t cystic duct and the normal position of the cystic artery coming in with the clear liver visualized in the posterior window. At this point, indocyanine green cholangiography confirmed the anatomic str uctures as described. There was minimal bile movement into the gallbladder. However, dissection and manipulation of the gallbladder and the cystic duct was able to visualize the bile entering the cyst ic duct, and as such, the anatomy was confirmed with ICG cholangiography. At this point the windows being created and the structure being skeletonized, I then placed double titanium clips on the proxim al side and singly on the distal side of both cystic duct and cystic artery. I then used the Endo Sh ears to ligate the cystic duct at this point, and I used the LigaSure device to ligate the cystic art luciano as it had already been utilized in this case. At this point, the gallbladder was removed careful ly from the hepatic bed using electrocautery with frequent suctioning due to the hydropic bubbling ap pearance of the significant inflammatory changes. At this point, the gallbladder was removed, and pl aced in EndoCatch bag and removed via the umbilical trocar and sent off for pathologic examination. The area was copiously irrigated multiple times until completely clear and no additional hemostat was required. The liver bed was inspected at this point. Indocyanine green cholangiography was perform ed again and the common duct was visualized in its normal course with the cystic duct stump being vis ualized at this point. No leakage of bile was appreciated. The clips found to be in good anatomic p osition and the clips for the artery was placed in a good position as well without any need for furth er hemostatic maneuvers. At this point, due to the significant dissection time, I opted to irrigate the area once again and suctioned out until completely dry and placed Airsta hemostatic powder in the hepatic fossa at this point and packed the omentum back in this area. At this point, the patient po sitioned back in the neutral position. I then removed the umbilical trocar and closed the umbilical trocar site using Boyd-Lucian suture passer with #1 Vicryl in interrupted fashion. Good approxim ation of tissues. The abdomen was completely desufflated under direct visualization with no incident or complication. Remaining trocars removed. All skin edges were then copiously irrigated and close d with 4-0 Monocryl in running fashion. Dermabond placed over top. The patient tolerated the proced ure well without incident or complication, was transferred to recovery room in good condition. All c ounts were correct at the end of the case. TK/MODL Voice ID: [id number] Report ID: [id number]
[2023-12-19 17:25] LABS: Differential Total Cells Count 100
[2023-12-19 17:26] LABS: Blood Morphology Comment NOT SEEN (NOT SEEN); Lymphocytes 11 % (15-42); Monocytes 3 % (0-10); Platelet Estimate ADEQ; Segmented Neutrophils 86 % (40-80)
--- NOTE | 2023-12-19 18:07 | P.PN ---
Date of Service: 12/19/23 patient seen briefly as she was being taken to OR, still with moderate RUQ pain/tenderness Dr. Negro taking her to OR for lap alicia, ICG continues antibiotics pain meds, IVF f/u post-op confirm home meds
[2023-12-19] MEDS: HYDROCODONE/APAP 5/325 MG TAB PO PRN (21:56)
[2023-12-20 04:07] LABS: Absolute Monocytes 0.7 K/uL (0.1-1.3); Absolute Neutrophil 8.6 K/uL (1.8-8.0); Basophils % 0.3 % (0-1.3); Eosinophils % 0.1 % (0-4.4); Hematocrit 32.2 % (36.0-45.0); Hemoglobin 10.4 g/dL (12.0-15.0); Lymphocytes % 9.3 % (15.3-44.8); MCH 27.7 pg (27.0-35.0); MCHC 32.2 g/dL (32.0-36.0); MPV 8.2 fL (7.6-11.3); Monocytes % 7.2 % (3.3-12.3); Neutrophils % 83.1 % (41.7-73.7); Platelets 377 thou/uL (152-406); RBC Red Blood Cell Count 3.74 M/uL (3.86-4.86); Red Cell Distribution Width 14.2 % (12.1-15.2)
[2023-12-20 04:26] LABS: Albumin 2.3 g/dL (3.4-5.0); Albumin/Globulin Ratio 0.5 (1.1-1.8); Anion Gap 7.2 mEq/L (5.0-15.0); Bilirubin Total 0.4 mg/dL (0.2-1.0); Globulin 4.8 g/dL (2.3-3.5); Potassium 4.2 mEq/L (3.5-5.1); Protein, Total 7.1 g/dL (6.4-8.2)
[2023-12-20 04:28] VITALS: BMI 37.6
[2023-12-20] MEDS: SERTRALINE HCL 100 MG TAB PO SCH (08:47)
[2023-12-20 08:53] VITALS: BP 127/79; TEMP 98.1
[2023-12-20] MEDS ORDERED: Levofloxacin 250mg IV 250 MG/50 ML BAG IV SCH (09:00)
--- NOTE | 2023-12-20 12:01 | P.DS ---
Admission Date: 12/19/23 Discharge Date: 12/20/23 Disposition: ROUTINE DISCHARGE Discharge Condition: GOOD Reason for Admission: Abdominal pain; intractable nausea and vomiting; biliary colic Consultations: General surgery - Dr. Negro Brief History of Present Illness: 68yo F, PMH: hx of hidradenitis suppurativa, Hypertension, Depression Patient came to the hospital with abdominal pain. Patient's pain started a couple days ago. She started having intractable nausea and vomiting. Patient came to the emergency room after she was not really getting any better. In the emergency room workup revealed cholelithiasis. No evidence of choledocholithiasis. Patient appears to be having biliary colic with nausea and vomiting. LFTs were fairly unremarkable. Emergency room physician spoke with general surgery and they wanted to admit the patient for further workup for acute cholecystitis. Patient will be kept n.p.o. while surgery follows up with patient. Patient also has a history of hidradenitis suppurativa. Patient follows up with surgery as an outpatient. At this time patient be admitted for further workup. Hospital Course: Problem List: acute gangrenous cholecystitis with Cholelithiasis, now s/p lap alicia with ICG cholangiography (12/18) Biliary colic hx of hidradenitis suppurativa Hypertension Depression Patient presented with RUQ pain/tenderness and was found to have acute gangrenous cholecystitis with cholelithasis, initially seen on abdominal ultrasound. Dr. Negro, general surgeon, evaluated the patient and took her to the OR for lap alicia with ICG cholangiography on 12/18. During surgery, Dr. Negro found the gallbladder completely encased in omental attachments, with gangrenous stewart ges at the gallbladder fundus, along with severe extensive adhesions, short cystic duct, impacted stone in gallbladder neck region. Patient did well post operatively, abdominal pain improving, remained afebrile throughout hospitalization, leukocyosis resolved and was deemed stable for discharge. Patient received ~1 day of zosyn and is to complete 4 more days of oral augmentin on discharge. Patient ambulating without issues and tolerating clear liquids on day of discharge. Advised patient to slowly advance diet over the next few days, continue liquids for 1-2 more days, then can start introducing soft foods and advance as tolerated Medications: Augmentin twice daily x4 days Sloan 5/325 as needed colace as needed Prescriptions sent to [facility] in [place] [facility] due to it being Easter and limited pharmacies are open today. If any problems acquiring prescriptions, call hospital ask for nurse station on 2nd/4th floor for further assistance. Follow up: PCP 3-[address] Negro in ~1-2 weeks Please call to schedule / confirm appointment. Okay to return to work once cleared by Dr. Negro at follow up appointment in ~1-2 weeks. No heavy lifting > 10 lbs for 4-6 weeks. Physical Exam: GEN: Alert, oriented, NAD HEENT: Normal conjunctiva, sclera anicteric CV: Regular rate and rhythm, no edema Pulm: Nonlabored respirations on room air, clear bilaterally ABD: Soft, minimal RUQ tenderness, surgical dressing in place Neuro: Normal speech, normal affect Vital Signs/Physical Exam: Temp Pulse Resp BP Pulse Ox 98.1 F 64 19 127/79 96 12/20/23 08:44 12/20/23 08:44 12/20/23 08:44 12/20/23 08:44 12/20/23 08:44 Laboratory Data at Discharge: WBC 10.40 thou/uL (4.3-10.9) 12/20/23 03:17 Hgb 10.4 g/dL (12.0-15.0) L D 12/20/23 03:17 Hct 32.2 % (36.0-45.0) L 12/20/23 03:17 Plt Count 377 thou/uL (152-406) 12/20/23 03:17 PT 12.9 SECONDS (9.5-12.5) H 12/19/23 04:20 INR 1.18 12/19/23 04:20 APTT 29.9 SECONDS (24.3-36.9) 12/19/23 04:20 Sodium 141 mEq/L (136-145) 12/20/23 03:17 Potassium 4.2 mEq/L (3.5-5.1) 12/20/23 03:17 BUN 9 mg/dL (7-18) 12/20/23 03:17 Creatinine 0.89 mg/dL (0.55-1.02) 12/20/23 03:17 Glucose 113 mg/dL (74-106) H 12/20/23 03:17 Phosphorus 2.2 mg/dL (2.5-4.9) L 12/19/23 10:22 Magnesium 2.2 mg/dL (1.6-2.4) 12/19/23 10:22 Total Bilirubin 0.4 mg/dL (0.2-1.0) 12/20/23 03:17 AST 30 U/L (15-37) 12/20/23 03:17 ALT 28 U/L (13-56) 12/20/23 03:17 Alkaline Phosphatase 90 U/L (45-117) 12/20/23 03:17 Lipase 25 U/L (13-75) 12/19/23 04:20 Home Medications: Sertraline HCl 100 mg PO DAILY 12/19/23 Spironolactone 50 mg PO DAILY 12/19/23 Amox/Clavulanate [Augmentin 875-125 Tab] 1 tab PO BID 4 Days #8 tab 12/20/23 Hydrocodone/Acetaminophen [Hydrocodon-Acetaminophen 5-325] 1 each PO Q6H PRN #15 tab 12/20/23 New Medications: Amox/Clavulanate [Augmentin 875-125 Tab] 1 tab PO BID 4 Days #8 tab Hydrocodone/Acetaminophen [Hydrocodon-Acetaminophen 5-325] 1 each PO Q6H PRN #15 tab PRN Reason: Pain Scale 5-7 (Moderate) Physician Discharge Instructions: Physician Discharge instructions: Patient presented with RUQ pain/tenderness and was found to have acute gangrenous cholecystitis with cholelithasis, initially seen on abdominal ultrasound. Dr. Negro, general surgeon, evaluated the patient and took her to the OR for lap alicia with ICG cholangiography on 12/18. During surgery, Dr. Negro found the gallbladder completely encased in omental attachments, with gangrenous changes at the gallbladder fundus, along with severe extensive adhesions, short cystic duct, impacted stone in gallbladder neck region. Patient did well post operatively, abdominal pain improving, remained afebrile throughout hospitalization, leukocyosis resolved and was deemed stable for discharge. Patient received ~1 day of zosyn and is to complete 4 more days of oral augmentin on discharge. Patient ambulating without issues and tolerating clear liquids on day of discharge. Advised patient to slowly advance diet over the next few days, continue liquids for 1-2 more days, then can start introducing soft foods and advance as tolerated Medications: Augmentin twice daily x4 days Sloan 5/325 as needed for pain every 6-8 hours okay to take over the counter stool softener, colace as needed for constipation Prescriptions sent to [facility] in [place] [facility] due to it being Easter and limited pharmacies are open today. If any problems acquiring prescriptions, call hospital ask for nurse station on 2nd/4th floor for further assistance. Follow up: PCP 3-[address] Negro in ~1-2 weeks Please call to schedule / confirm appointment. Okay to return to work once cleared by Dr. Negro at follow up appointment in ~1-2 weeks. No heavy lifting > 10 lbs for 4-6 weeks. Diet: [place] Activity: No lifting more than 10 lbs Followup: Jaleel Negro MD [ACTIVE - CAN ADMIT] - Anders Atkins MD [Primary Care Provider] - Time spent managing pt's care (in minutes): 45
--- NOTE | 2023-12-20 15:25 | RAD REPORT ---
EXAM DESCRIPTION: US - Abdomen Exam Limited - 12/19/2023 12:07 am RadLex: US ABDOMEN LIMITED CLINICAL HISTORY: Ruq pain. COMPARISON: None. TECHNIQUE: Ultrasound of the gallbladder with Doppler flow imaging was obtained. FINDINGS: Gallbladder: Large amount of gallbladder sludge. Large calcified gallstone near the gallbl adder neck. No cholelithiasis or gallbladder wall thickening. Negative sonographic Rodriguez's sign. Bile ducts: No dilatation of the intrahepatic bile ducts. The common bile duct measures 0.6 cm in dontae meter at the fabian hepatis. Incidentally noted is increased hepatic echogenicity. IMPRESSION: 1. Cholelithiasis and gallbladder sludge. No gallbladder wall thickening. Negative son ographic Rodriguez's sign. 2. Increased hepatic echogenicity, which can be seen with hepatic steatosis or fibrofatty change. Electronically signed by: Rubina Cash MD 12/19/2023 12:26 AM CDT Due to temporary technical issues with the PACS/Fluency reporting system, reports are being signed by the in house radiologists without review as a courtesy to insure prompt reporting. The interpreting radiologist is fully responsible for the content of the report
--- NOTE | 2023-12-20 15:27 | CON ---
Date of Consultation: 12/19/2023 Brief History Of Present Illness: The patient is a 68-year-old pleasant female known to me from prev ious wound care for hidradenitis suppurativa, who presents with approximately 3-week history of epiga stric and right upper quadrant abdominal pain, which had been pretty constant, intermittent, beginnin g worse as of late. As of the last several days ago, it became severe and unrelenting and as such, s he came to the emergency room with the above-stated complaints. She had additionally intractable maria t sea, vomiting, and even despite pain medication, her pain continues to be present and had minimal imp rovement with the pain medication. She has not had similar episodes before in the past prior to the 3 weeks she can recall, no sick contacts, no recent travel, no new food exposures. Past Medical History: Significant for hidradenitis suppurativa, hypertension, depression. 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 Allergies: NO KNOWN DRUG ALLERGIES. Home Medications: Include sertraline and spironolactone. Family History: Reviewed, noncontributory. Social History: She has a positive previous tobacco use history of 10+ years. She denies alcohol or recreational drug use. Review of Systems: Ten-point review of systems other than HPI, denies. Physical Examination: Vital Signs: Blood pressure was 127/63, heart rate 76, respiratory rate 17, temperature 98.8, SpO2 9 5% on room air. General: At the time of my examination, she is awake, alert, oriented. Psychiatric: Appropriate and conversive. HEENT: She is normocephalic. Sclerae icteric. Mucous membranes are moist. Oropharynx is clear. Neck: Supple. No JVD. Chest: Normal expansion, excursion. Cardiovascular: Regular rate and rhythm. Pulmonary: Clear to auscultation bilaterally. Abdomen: Soft with positive right upper quadrant focal peritonitis, positive Rodriguez sign, positive g uarding, mild rebound is present. She has what feels like maybe a palpable umbilical hernia, which f eels reducible. She is obese, generally making examination somewhat challenging. Extremities: No clubbing, cyanosis, edema. Skin: Warm and dry. Laboratory Data: Revealed a white blood count of 10.5, hemoglobin 11.8, hematocrit of 35.0, platelet count was 386. Neutrophils 84%, PT 12.9, INR 1.18, PTT is 29.9. Sodium 140, potassium 3.8, chlorid e 107, carbon dioxide 30, BUN 12, creatinine 0.9, glucose was 115, phosphorus 2.2, magnesium 2.2, tot al bilirubin 0.5, AST 10, ALT 19, alkaline phosphatase 103, lipase is 25. She had a UA, which showed turbidity only. No other significant findings. She had imaging performed, which included an ultras ound of the right upper quadrant showing cholelithiasis and gallbladder sludge. No gallbladder wall thickening. Negative sonographic Rodriguez sign. Increased hepatic echogenicity which could be hepatic steatosis and fibrofatty change. Assessment And Plan: This is a 68-year-old female, who comes in with right upper quadrant abdominal pain, cholelithiasis and signs consistent with biliary colic. 1.IV fluid hydration. 2.Antibiotic coverage. 3.I have explained risks, benefits, alternatives of laparoscopic possible open cholecystectomy with indocyanine green cholangiography including, but not limited to bleeding, infection, damage to surrou nding tissue, need for further operative procedure, injury to bile ducts, intestines, blood clots, he art attack, stroke, or other unforeseen complications in the perioperative period related to and not related to anesthesia and need for ongoing surgery. The patient displayed understanding of the above -stated plan. The patient agrees to proceed as indicated. Thank you for this interesting consult. TONY/ALLIE Voice ID: [id number] Report ID: [id number]
== END 2023-12-20 14:30 | disposition home or self-care (01) | DRG 419 ==
LOC: ER 23:22 → ERHOLD 12-19 03:32 → 4TH 12-19 12:59 → OBSVTOIN 12-19 18:05
PROVIDERS: ADMIT Hospitalist; ATTEND Hospitalist
PROC: BF52200 Other Imaging of Gallbladder using Fluorescing Agent, Indocyanine Green Dye, Intraoperative (ICD-10-PCS; 2023-12-19)
PROC: 0FT44ZZ Resection of Gallbladder, Percutaneous Endoscopic Approach (ICD-10-PCS; principal; 2023-12-19 12:00)
DX: K80.00 Calculus of gallbladder with acute cholecystitis without obstruction (principal); K82.A1 Gangrene of gallbladder in cholecystitis; I10 Essential (primary) hypertension; F32.A Depression, unspecified; L73.2 Hidradenitis suppurativa; F17.210 Nicotine dependence, cigarettes, uncomplicated; Z79.899 Other long term (current) drug therapy
CPT/HCPCS: 36415; 76705; 80053; 81001; 83690; 83735; 84100; 85025; 85610; 85730; 88304; 99285; G0378; J1100; J1170; J2001; J2250; J2310; J2405; J2543; J2550; J2704; J2710; J3010; J7030; J7120

== ENCOUNTER 2024-12-05 06:11 | Inpatient (IN) | payer OTHER ==
--- OUTSIDE RECORDS SUMMARY | 2024-12-05 06:13 | XMS REPORT | Continuity of Care Document ---
Author Name Unknown Address [address] [place] [address] [facility] [place] Address [address] [place] [address] Care Team Providers Care Ship'S Cook Name Role Phone Pcp, Patient Does Not Have A Primary Care Physic paloma [email or web address] Attending Clinician Unavaila ble TRITSKATHY NPAIER Attending Clinician Unavaila ble TRITSKATHY NAPIER Attending Clinician Unavaila ble [id number]_S Admitting Clinician Unavaila ble Payers Payer Name Policy Type Policy Number Effective Date Expirati on Date Source MEDICARE PART A \T\ B [id number] 2019 00:00:00 Problems Condition Name Condition Details Condition Category Status Onset Date Resolution Date Last Treatment Date Treating Clinician Comments Source Perianal abscess Perianal abscess Disease Active 01-31 00:00: 00 [facility] Hidradenit is suppurativ a Hidradenit is suppurativ a Disease Active 01-31 00:00: 00 [facility] Candidal intertrigo Candidal intertrigo Disease Active 01-31 00:00: 00 [facility] Morbid obesity with body mass index (BMI) of 40.0 or higher Morbid obesity with body mass index (BMI) of 40.0 or higher Disease Active 01-31 00:00: 00 [facility] Benign essential hypertensi on, with delivery, with current complicati on Benign essential hypertensi on, with delivery, with current complicati on Disease Active 01-31 00:00: 00 [facility] Social History Social Habit Start Date Stop Date Quantity Comments Source History of tobacco use Cigarette Smoker [facility] Alcohol intake 2022-02-07 00:00:00 2022-02-07 00:00:00 Ex-drinker (finding) [facility] Tobacco use and exposure 2022-01-31 00:00:00 2022-01-31 00:00:00 Never used [facility] Sex Assigned At 1955 00:00:00 1955 00:00:00 [facility] Smoking Status Start Date Stop Date Source Former smoker 2022-01-31 00:00:00 2022-01-31 00:00:00 [facility] Medications Ordered Medication Name Filled Medication Name Start Date Stop Date Current Medication? Ordering Clinician Indication Dosage Frequency Signature (SIG) Comments Components Source losartan-hy drochloroth iazide 50-12.5 mg per tablet 01-31 10:00: 27 Yes losartan 50 mg-hydroch lorothiazi de 12.5 mg tablet TAKE 1 TABLET BY MOUTH EVERY DAY [facility] Encounters Start Date/Time End Date/Time Encounter Type Admission Type Attending Clinicians Care Facility Care Department Encounter ID Source 2023-07-18 00:00:00 2023-07-18 00:00:00 Outpatient [email or web address] diaubreya_S MAN [facility] [id number] [facility] 2022-02-28 13:45:00 2022-02-28 13:45:00 Outpatient KATHY NEWMAN CHERYAL [facility] [id number] [facility] 2022-02-27 00:00:00 2022-02-27 00:00:00 Telephone Kathy Sinha IDAMISH [facility] [id number] [facility] 2022-02-07 11:15:00 2022-02-07 11:57:45 Outpatient R ERNESTINE JOSE MAUBREY KATHY SINHA [facility] [id number] [facility] 2022-02-07 11:15:00 2022-02-07 11:57:45 [facility] [id number] [facility] 2022-02-07 11:15:00 2022-02-07 11:15:00 Outpatient R KATHY SINHA CHERYAL [facility] [id number] [facility] 2022-01-31 09:00:00 2022-01-31 10:21:28 Office Visit Kathy Sinha [facility] [id number] [facility] 2022-01-31 09:00:00 2022-01-31 10:21:28 Outpatient R KATHY SINHA CHERYAL [facility] [id number] [facility]
[2024-12-05 07:12] LABS: Absolute Basophils 0.1 K/uL (0-0.5); Absolute Lymphocytes (CBC) 1.4 K/uL (0.7-4.9); Absolute Monocytes 0.4 K/uL (0.1-1.3); Absolute Neutrophil 4.7 K/uL (1.8-8.0); Basophils % 1.1 % (0-1.3); Eosinophils % 0.2 % (0-4.4); Hematocrit 39.7 % (36.0-45.0); Hemoglobin 12.9 g/dL (12.0-15.0); Lymphocytes % 20.9 % (15.3-44.8); MCH 26.8 pg (27.0-35.0); MCHC 32.5 g/dL (32.0-36.0); MCV 82.2 fL (80-100); MPV 8.9 fL (7.6-11.3); Neutrophils % 71.8 % (41.7-73.7); Nucleated Red Blood Cells % 0.2 % (0-0); Platelets 336 thou/uL (152-406); RBC Red Blood Cell Count 4.83 M/uL (3.86-4.86); Red Cell Distribution Width 15.6 % (12.1-15.2)
[2024-12-05 07:30] LABS: Albumin 2.8 g/dL (3.4-5.0); Albumin/Globulin Ratio 0.4 (1.1-1.8); Anion Gap 12.5 mEq/L (5.0-15.0); Bilirubin Direct 0.5 mg/dL (0-0.2); Bilirubin Indirect, Calculated 0.5 mg/dL (0.2-0.8); Globulin 6.7 g/dL (2.3-3.5); Potassium 3.5 mEq/L (3.5-5.1); Protein, Total 9.5 g/dL (6.4-8.2); Troponin High Sensitivity 27.3 pg/mL (<58.9)
[2024-12-05] MEDS ORDERED: NA CHLORIDE 0.9% 500 ML ONE ×2 (07:36→10:14)
[2024-12-05] MEDS ORDERED: ACETAMINOPHEN 500 MG TAB ONE (08:09)
--- NOTE | 2024-12-05 08:10 | RAD REPORT ---
EXAMINATION: ONE VIEW CHEST XR CLINICAL INDICATION: Female, 69 years old.,COUGH TECHNIQUE: Frontal chest projection is submitted. Examination is limited by patient positioning and t echnique. COMPARISON: No prior exam. FINDINGS: The lungs are well inflated and clear apart from thickening or atelectasis along the right minor fiss ure. No pneumothorax or sizable effusion. The heart is normal in size. Mediastinal contours are unremarkable. IMPRESSION: No acute intrathoracic abnormalities.
--- NOTE | 2024-12-05 09:19 | EDPHYS ---
Physician Documentation [facility] Name: Chris Mahan Age: 69 yrs Sex: Female : 1955 Arrival Date: 12/05/2024 Time: 06:11 Bed 4 Private MD: ED Physician Gary Palencia HPI: 12/05 06:26 This 69 yrs old Black Female presents to ER via Unassigned with complaints of Shortness ec2 Of Breath, Chest Pain, Weakness. 06:26 Patient arrives today for evaluation of chest pain, shortness of breath, generalized ec2 weakness. Patient reports occasional cough that causes some right-sided chest pain. Patient reports that she also feels short of breath that is worse with exertion, symptoms have been ongoing for approximately 3 weeks. No fevers, no chills, no nausea, no vomiting. Patient reports no urinary complaints.. Historical: - Allergies: 06:27 No Known Allergies; dd2 - PMHx: 06:27 depressive disorder; HS; Hypertensive disorder; dd2 - PSHx: 06:27 drainage from buttocks; Cholecystectomy; dd2 - Immunization history:: Adult Immunizations up to date. - Infectious Disease History:: Denies. - Social history:: Smoking status: Patient reports the use of cigarette tobacco products, denies chronic smoking, but will smoke occasionally. ROS: 06:27 Constitutional: as per hpi ec2 Exam: 06:27 Constitutional: GEN: NAD Head: atraumatic Eyes: EOMI Ears: External ears are ec2 normal. CV: regular rate LUNGS: no respiratory distress, no wheezes or rales or rhonchi ABD: non-distended SKIN: no evidence of rashes MSK: no evidence of trauma Vital Signs: 06:25 BP 93 / 68; Pulse 83; Resp 17; Temp 97.9; Pulse Ox 98% on R/A; Weight 101.1 kg; Pain dd2 6/10; 07:10 BP 90 / 60; Pulse 83; Resp 17; Pulse Ox 100% ; bm8 07:35 BP 70 / 55; Pulse 76; ll1 07:40 BP 75 / 50; Pulse 77; Pulse Ox 99% ; ll1 07:49 BP 81 / 52; Pulse 78; ll1 08:18 BP 76 / 55; Pulse 71; Resp 18; Pulse Ox 99% ; ll1 08:20 BP 78 / 66; Pulse 71; Resp 18; Pulse Ox 99% ; ll1 08:30 BP 80 / 66; Pulse 68; Pulse Ox 100% on R/A; ll1 08:36 BP 84 / 58; Pulse 68; Pulse Ox 100% on R/A; ll1 08:47 BP 87 / 58; Pulse 67; Resp 18; Pulse Ox 100% ; ll1 08:51 BP 97 / 51; Pulse 66; Pulse Ox 100% on R/A; ll1 09:43 BP 100 / 67; Pulse 76; Resp 18; ll1 10:08 BP 79 / 45; Pulse 74; Resp 18; Pulse Ox 100% on R/A; ll1 10:09 BP 90 / 48; Pulse 74; Pulse Ox 100% ; ll1 10:17 BP 86 / 50; Pulse 74; Resp 17; Pulse Ox 100% on R/A; ll1 12:30 BP 82 / 45; Pulse 83; Resp 18; Pulse Ox 100% on R/A; cm10 06:25 Pain Scale: Adult dd2 07:35 laying on R side trying to sleep ll1 12:30 DR. MONTANEZ MADE AWARE. cm10 Panfilo Coma Score: 06:33 Eye Response: spontaneous(4). Motor Response: obeys commands(6). Verbal Response: dd2 oriented(5). Total: 15. MDM: 06:22 Medical Screening Exam initiated ec2 06:27 Data reviewed: vital signs, nurses notes. ED course: Patient arrives today for ec2 evaluation of shortness of breath and weakness. Examination yields nontoxic individuals otherwise in no acute respiratory distress with a reassuring pulmonary examination. Will obtain a cardiac workup, chest x-ray as well. DDx includes processes such as arrhythmia, electrolyte disturbances, anemia, CHF.. 06:54 ED course: EKG independently reviewed and interpreted by me, shows normal sinus rhythm, ec2 rate of 87, no acute ST segment elevations, intervals are nonactionable.. 06:58 Transition of care: After a detail discussion of the patient's case, care is ec2 transferred to Gary Palencia DO. 07:00 Transition of care: Care assumed from Edgar Ceja MD. ED course: 69-year-old female ms3 presenting to the emergency department for shortness of breath, dyspnea on exertion. Patient is currently pending cardiac workup labs.. 08:08 ED course: Patient with decrease in blood pressure to systolic 70s. 500 mL of normal ms3 saline ordered. Patient states she did take her blood pressure medication prior to coming to the emergency department.. 09:14 Differential diagnosis: CHF exacerbation, Myocardial Infarction pulmonary edema. ms3 Consideration of Admission/Observation Patient was admitted/placed on observation. Management of patient was discussed with the following: Hospitalist: Dr Montanez. I considered the following discharge prescriptions or medication management in the emergency department Medications were administered in the Emergency Department. See MAR. Independent interpretation of the following test(s) in the Emergency Department EKG: See my EKG interpretation above. Counseling: I had a detailed discussion with the patient and/or guardian regarding the historical points, exam findings, and any diagnostic results supporting the discharge/admit diagnosis, lab results, radiology results, the need for further work-up and treatment in the hospital. ED course: Discussed necessity for admission with patient. Patient understands agrees with plan. All questions were answered.. 12/05 06:26 Order name: Basic Metabolic Panel; Complete Time: 07:49 ec2 12/05 06:26 Order name: CBC with Diff; Complete Time: 07:49 ec2 12/05 06:26 Order name: Troponin HS; Complete Time: 07:49 ec2 12/05 06:26 Order name: UAM ec2 12/05 06:26 Order name: BNP; Complete Time: 07:49 ec2 12/05 06:26 Order name: LFT's; Complete Time: 07:49 ec2 12/05 10:21 Order name: Magnesium EDMS 12/05 10:21 Order name: Phosphorus EDMS 12/05 10:21 Order name: T4 Free EDMS 12/05 10:21 Order name: Thyroid Stimulating Hormone EDMS 12/05 10:21 Order name: Urinalysis w/ reflexes EDMS 12/05 10:21 Order name: Basic Metabolic Panel EDMS 12/05 10:21 Order name: Basic Metabolic Panel EDMS 12/05 10:21 Order name: CBC with Automated Diff EDMS 12/05 10:21 Order name: CBC with Automated Diff EDMS 12/05 10:21 Order name: Troponin High Sensitivity EDMS 12/05 10:21 Order name: Troponin High Sensitivity EDMS 12/05 10:21 Order name: Troponin High Sensitivity EDMS 12/05 10:21 Order name: Troponin High Sensitivity [facility] 12/05 06:26 Order name: XRAY Chest (1 view); Complete Time: 08:58 ec2 12/05 12:13 Order name: CT; Complete Time: 12:20 [facility] 12/05 06:26 Order name: EKG; Complete Time: 06:27 ec2 12/05 10:21 Order name: CONS Physician Consult [facility] 12/05 06:26 Order name: Cardiac monitoring; Complete Time: 06:36 ec2 12/05 06:26 Order name: EKG - Nurse/Tech; Complete Time: 06:36 ec2 12/05 06:26 Order name: IV Saline Lock; Complete Time: 07:20 ec2 12/05 06:26 Order name: Labs collected and sent; Complete Time: 07:20 ec2 12/05 06:26 Order name: O2 Per Protocol; Complete Time: 06:36 ec2 12/05 06:26 Order name: O2 Sat Monitoring; Complete Time: 06:36 ec2 12/05 06:58 Order name: Labs - recollect needed: recollect green and lavender top; Complete Time: bd 07:09 Administered Medications: 07:42 Drug: NS 0.9% IV 500 ml 500 ml IV at 1 bolus once; to be given as a bolus over 30 ll1 minutes Volume: 500 ml; Route: IV; Rate: 1 bolus; Site: left forearm; 08:52 Follow up: Response: No adverse reaction; IV Status: Completed infusion; IV Intake: ll1 500ml 08:18 Drug: Acetaminophen PO 1000 mg PO once Route: PO; ll1 08:58 Follow up: Response: No adverse reaction ll1 10:17 Drug: NS 0.9% IV 500 ml 500 ml IV at 1 bolus once; to be given as a bolus over 30 ll1 minutes Volume: 500 ml; Route: IV; Rate: 1 bolus; Site: left forearm; 10:45 Follow up: Response: No adverse reaction; IV Status: Completed infusion; IV Intake: cm10 500ml Disposition: 09:21 Critical Care:. ms3 Disposition Summary: 12/05/24 09:19 Hospitalization Ordered Notes: Hospitalization Status: Inpatient Admission ms3 Provider: Taryn Montanez ms3 Location: Telemetry/[facility] (Inpatient) ms3 Condition: Stable ms3 Problem: new ms3 Symptoms: are unchanged ms3 Bed/Room Type: Standard ms3 Room Assignment: 228(12/05/24 11:00) bd Diagnosis - Hypotension, unspecified ms3 - Chest pain, unspecified ms3 - Shortness of breath ms3 Forms: - Medication Reconciliation Form ms3 - SBAR form ms3 - Leadership Thank You Letter ms3 Critical care time excluding procedures: 09:21 Critical care time: Bedside Care: 35 minutes, Consultation: 5 minutes. Total time: 40 ms3 minutes Signatures: Dispatcher [employer] Erin Lang Lynsay RN RN ll1 Gary Palencia DO DO ms3 Edgar Ceja MD MD ec2 DAGMAR MONTANO RN RN dd2 Romana Cantu RN cm10 Corrections: (The following items were deleted from the chart) 11:00 09:19 ms3 bd
--- NOTE | 2024-12-05 09:19 | ER ---
Nurse's Notes [facility] Name: Chris Mahan Age: 69 yrs Sex: Female : 1955 Arrival Date: 12/05/2024 Time: 06:11 Bed 4 Private MD: Diagnosis: Hypotension, unspecified;Chest pain, unspecified;Shortness of breath Presentation: 12/05 06:25 Chief complaint: Patient states: CHEST PAIN AND SHORTNESS OF BREATH X3 WEEKS. REPORTS dd2 WENT TO PCP LAST WEEK AND HAD MEDICATION CHANGES. Coronavirus screen: At this time, the client does not indicate any symptoms associated with coronavirus-19. Ebola Screen: No symptoms or risks identified at this time. Initial Sepsis Screen: Does the patient meet any 2 criteria? No. Patient's initial sepsis screen is negative. Does the patient have a suspected source of infection? No. Patient's initial sepsis screen is negative. Risk Assessment: Do you want to hurt yourself or someone else? Patient reports no desire to harm self or others. Onset of symptoms is unknown. 06:25 Method Of Arrival: Ambulatory dd2 06:25 Acuity: NANCY 3 dd2 Triage Assessment: 06:27 General: Appears in no apparent distress. uncomfortable, Behavior is cooperative, dd2 appropriate for age, anxious. Pain: Complains of pain in chest, RT DIAPHRAGM Pain radiates to LEFT DIAPHRAGM Pain currently is 6 out of 10 on a pain scale. Quality of pain is described as tender. EENT: No deficits noted. No signs and/or symptoms were reported regarding the EENT system. Neuro: No deficits noted. Smith Agitation-Sedation Scale (RASS): 0 - Alert and Calm Level of Consciousness is awake, alert, obeys commands, Oriented to person, place, time, situation, Appropriate for age. Cardiovascular: Reports chest pain, shortness of breath, Heart tones S1 S2 present Capillary refill < 3 seconds JVD is absent Patient's skin is warm and dry. Respiratory: Reports shortness of breath at rest on exertion Airway is patent Respiratory effort is even, unlabored, Respiratory pattern is regular, symmetrical, Breath sounds are clear bilaterally. Onset: The symptoms/episode began/occurred at an unknown time. the patient has mild shortness of breath. GI: Abdomen is non-distended, obese, Bowel sounds present X 4 quads. Abd is soft and non tender X 4 quads. Reports anorexia. : No deficits noted. No signs and/or symptoms were reported regarding the genitourinary system. Derm: No deficits noted. No signs and/or symptoms reported regarding the dermatologic system. Musculoskeletal: Circulation, motion, and sensation intact. Range of motion: intact in all extremities, Tenderness present in diaphragm. Historical: - Allergies: 06:27 No Known Allergies; dd2 - PMHx: 06:27 depressive disorder; HS; Hypertensive disorder; dd2 - PSHx: 06:27 drainage from buttocks; Cholecystectomy; dd2 - Immunization history:: Adult Immunizations up to date. - Infectious Disease History:: Denies. - Social history:: Smoking status: Patient reports the use of cigarette tobacco products, denies chronic smoking, but will smoke occasionally. Screenin:33 [facility] ED Fall Risk Assessment (Adult) History of falling in the last 3 months, dd2 including since admission No falls in past 3 months (0 pts) Confusion or Disorientation No (0 pts) Intoxicated or Sedated No (0 pts) Impaired Gait No (0 pts) Mobility Assist Device Used No (0 pt) Altered Elimination No (0 pt) Score/Fall Risk Level 0 - 2 = Low Risk Oriented to surroundings, Maintained a safe environment, Educated pt \T\ family on fall prevention, incl call for assistance when getting out of bed, Assessed \T\ reinforced patient's understanding of fall precautions, Hourly rounding (assess needs \T\ fall precautionary measures) done. Abuse screen: Denies threats or abuse. Denies injuries from another. Nutritional screening: No deficits noted. Tuberculosis screening: No symptoms or risk factors identified. Assessment: 06:33 Reassessment: SEE TRIAGE ASSESSMENT FOR FULL ASSESSMENT. dd2 07:00 Reassessment: report received from night shift manager RN. ll1 07:11 Cardiovascular: Rhythm is sinus rhythm rate 81. bm8 07:36 Reassessment: No changes from previously documented assessment. Patient and/or family ll1 updated on plan of care and expected duration. Pain level reassessed. Patient is alert, oriented x 3, equal unlabored respirations, skin warm/dry/pink. Reassessment: repositioned onto back. Dr. Palencia informed of BP, saline ordered. General: Appears in no apparent distress. Behavior is calm, cooperative, appropriate for age, Reports fatigue for. Pain: Denies pain. Neuro: Reports weakness. Respiratory: Reports shortness of breath on exertion Airway is patent Trachea midline Respiratory effort is even, unlabored, Respiratory pattern is regular, symmetrical. 08:19 Reassessment: No changes from previously documented assessment. Patient and/or family ll1 updated on plan of care and expected duration. Pain level reassessed. Patient is alert, oriented x 3, equal unlabored respirations, skin warm/dry/pink. 08:36 Reassessment: No changes from previously documented assessment. Patient and/or family ll1 updated on plan of care and expected duration. Pain level reassessed. Patient is alert, oriented x 3, equal unlabored respirations, skin warm/dry/pink. 09:43 Reassessment: No changes from previously documented assessment. Patient and/or family ll1 updated on plan of care and expected duration. Pain level reassessed. Patient is alert, oriented x 3, equal unlabored respirations, skin warm/dry/pink. 10:08 Reassessment: No changes from previously documented assessment. Patient and/or family ll1 updated on plan of care and expected duration. Pain level reassessed. 10:17 Reassessment: No changes from previously documented assessment. Patient and/or family ll1 updated on plan of care and expected duration. Pain level reassessed. Patient is alert, oriented x 3, equal unlabored respirations, skin warm/dry/pink. 12:15 Reassessment: PT ABLE TO AMBULATE WITH ASSISTANCE. NO DIZZINESS NOTED. GAIT STEADY. cm10 Vital Signs: 06:25 BP 93 / 68; Pulse 83; Resp 17; Temp 97.9; Pulse Ox 98% on R/A; Weight 101.1 kg; Pain dd2 6/10; 07:10 BP 90 / 60; Pulse 83; Resp 17; Pulse Ox 100% ; bm8 07:35 BP 70 / 55; Pulse 76; ll1 07:40 BP 75 / 50; Pulse 77; Pulse Ox 99% ; ll1 07:49 BP 81 / 52; Pulse 78; ll1 08:18 BP 76 / 55; Pulse 71; Resp 18; Pulse Ox 99% ; ll1 08:20 BP 78 / 66; Pulse 71; Resp 18; Pulse Ox 99% ; ll1 08:30 BP 80 / 66; Pulse 68; Pulse Ox 100% on R/A; ll1 08:36 BP 84 / 58; Pulse 68; Pulse Ox 100% on R/A; ll1 08:47 BP 87 / 58; Pulse 67; Resp 18; Pulse Ox 100% ; ll1 08:51 BP 97 / 51; Pulse 66; Pulse Ox 100% on R/A; ll1 09:43 BP 100 / 67; Pulse 76; Resp 18; ll1 10:08 BP 79 / 45; Pulse 74; Resp 18; Pulse Ox 100% on R/A; ll1 10:09 BP 90 / 48; Pulse 74; Pulse Ox 100% ; ll1 10:17 BP 86 / 50; Pulse 74; Resp 17; Pulse Ox 100% on R/A; ll1 12:30 BP 82 / 45; Pulse 83; Resp 18; Pulse Ox 100% on R/A; cm10 06:25 Pain Scale: Adult dd2 07:35 laying on R side trying to sleep ll1 12:30 DR. MONTANEZ MADE AWARE. cm10 Panfilo Coma Score: 06:33 Eye Response: spontaneous(4). Motor Response: obeys commands(6). Verbal Response: dd2 oriented(5). Total: 15. ED Course: 06:13 Patient arrived in ED. [id number] 06:22 Edgar Ceja MD is Attending Physician. ec2 06:27 Triage completed. dd2 06:27 Arm band placed on right wrist. dd2 06:33 Patient has correct armband on for positive identification. Placed in gown. Bed in low dd2 position. Call light in reach. Side rails up X 1. Client placed on continuous cardiac and pulse oximetry monitoring. NIBP monitoring applied. monitoring manager on. Door closed. Noise minimized. Warm blanket given. Pillow given. Verbal reassurance given. 06:33 No provider procedures requiring assistance completed. EKG done, by ED staff, reviewed dd2 by Edgar Ceja MD. Patient maintains SpO2 saturation greater than 95% on room air. 06:36 DAGMAR MONTANO, AIDE is Primary Nurse. dd2 06:39 XRAY Chest (1 view) In Process Unspecified. EDMS 07:01 Inserted saline lock: 20 gauge in left forearm, using aseptic technique. Blood dd2 collected. Flushed with 10 mL NS. 07:09 Attending Physician role handed off by Edgar Ceja MD ms3 07:09 Gary Palencia DO is Attending Physician. ms3 07:19 Primary Nurse role handed off by DAGMAR MONTANO RN ll1 07:19 Jeana Vallecillo RN is Primary Nurse. ll1 09:19 Taryn Montanez MD is Hospitalizing Provider. ms3 12:39 Provided Education on: NEED FOR ADMIT. cm10 Administered Medications: 07:42 Drug: NS 0.9% IV 500 ml 500 ml IV at 1 bolus once; to be given as a bolus over 30 ll1 minutes Volume: 500 ml; Route: IV; Rate: 1 bolus; Site: left forearm; 08:52 Follow up: Response: No adverse reaction; IV Status: Completed infusion; IV Intake: ll1 500ml 08:18 Drug: Acetaminophen PO 1000 mg PO once Route: PO; ll1 08:58 Follow up: Response: No adverse reaction ll1 10:17 Drug: NS 0.9% IV 500 ml 500 ml IV at 1 bolus once; to be given as a bolus over 30 ll1 minutes Volume: 500 ml; Route: IV; Rate: 1 bolus; Site: left forearm; 10:45 Follow up: Response: No adverse reaction; IV Status: Completed infusion; IV Intake: cm10 500ml Medication: 06:33 VIS not applicable for this client. dd2 Intake: 08:52 IV: 500ml; Total: 500ml. ll1 10:45 IV: 500ml; Total: 1000ml. cm10 Outcome: 09:19 Decision to Hospitalize by Provider. ms3 12:39 Patient left the ED. ld1 Signatures: Dispatcher [employer] EDMS Jeana Vallecillo RN RN ll1 Gary Palencia DO DO ms3 Octavia Palencia RN RN ld1 Spring Hansen [id number] Romana Cantu RN RN cm10 Edgar Ceja MD MD ec2 Wm Bolden RN AIDE bm8 DAGMAR MONTANO RN RN dd2 Corrections: (The following items were deleted from the chart) 07:20 07:00 Reassessment: report received from night shift manager AIDE reyes ll1 12:39 12:30 BP 82 / 45; Pulse 83bpm; Resp 18bpm; Pulse Ox 100% RA; cm10 cm10
--- NOTE | 2024-12-05 11:00 | P.HP ---
Certification for Inpatient Patient admitted to: Inpatient With expected LOS: >2 Midnights Patient will require the following post-hospital care: None Practitioner: I am a practitioner with admitting privileges, knowledge of patient current condition, hospital course, and medical plan of care. Services: Services provided to patient in accordance with Admission requirements found in Title 42 Section 412.3 of the Code of Federal Regulations Patient History Date of Service: 12/05/24 Reason for admission: Abdominal pain, Hypotension History of Present Illness: Patient is a 69-year-old female with a past medical history significant for depression, hypertension, nicotine dependence who presents with complaint shortness of breath has been ongoing intermittently for the past 3 weeks. Patient also reports abdominal pain located in the left lower quadrant rated as 8/10 in severity and described as sharp in quality. Patient also reports subste rnal chest pain rated at 8/10 in severity and described as tightness in quality. Patient reported that these symptoms has been ongoing intermittently for the past 3 weeks. Patient reports recurrent episodes of hypotension and subsequent passing out. Patient denies hitting head. Patient reported associated signs and symptoms of nausea, headache and dizziness. Patient denies any other signs and symptoms. Symptoms are aggravated or relieved by nothing. Patient decided to present to the hospital due to worsening symptoms Allergies No Known Allergies Allergy (Verified 07/01/22 15:35) Home Medications: Amox/Clavulanate [Augmentin 875-125 Tab] 1 tab PO BID 4 Days #8 tab 12/20/23 Doxycycline Hyclate 1 tab PO BID 12/05/24 Levocetirizine Dihydrochloride [Allergy Relief] 1 tab PO DAILY 12/05/24 Losartan/Hydrochlorothiazide [Losartan-Hctz 50-12.5 mg Tab] 1 tab DAILY 12/05/24 Meclizine HCl 1 tab PO BID 12/05/24 Omeprazole 1 tab PO DAILY 12/05/24 - Past Medical/Surgical History Has patient received pneumonia vaccine in the past: No Diabetic: Yes -: HS -: Hypertension -: Depression -: Surgery for HS - Social History Smoking Status: Current every day smoker Counseled patient to stop smoking for: less than 10 minutes Smoking therapy provided: Yes Patient receptive to therapy: Yes Alcohol use: No CD- Drugs: No Caffeine use: Yes Place of Residence: Home Review of Systems General: Unremarkable Eyes: Unremarkable ENT: Unremarkable Respiratory: Cough Cardiovascular: Chest Pain Gastrointestinal: Nausea, Abdominal Pain Genitourinary: Unremarkable Musculoskeletal: Unremarkable Integumentary: Unremarkable Neurological: Other (MAHMOOD,. dizziness) Physical Examination - Physical Exam General: Alert, In no apparent distress, Oriented x3, Cooperative HEENT: Atraumatic, PERRLA, Mucous membr. moist/pink, EOMI, Sclerae nonicteric Neck: Supple, 2+ carotid pulse no bruit, No LAD, Without JVD or thyroid abnormality Respiratory: Clear to auscultation bilaterally, Normal air movement Cardiovascular: No edema, Regular rate/rhythm, Normal S1 S2 Capillary refill: <2 Seconds Gastrointestinal: Normal bowel sounds, Tenderness Musculoskeletal: No clubbing, No tenderness Integumentary: No rashes Neurological: Normal gait, Normal speech, Normal tone, Normal affect Lymphatics: No axilla or inguinal lymphadenopathy - Studies Laboratory Data (last 24 hrs) 12/05/24 12/05/24 07:02 07:02 WBC 6.60 Hgb 12.9 Hct 39.7 Plt Count 336 Sodium 136 Potassium 3.5 BUN 24 H Creatinine 1.83 H Glucose 112 H Total Bilirubin 1.0 AST 174 H ALT 102 H Alkaline Phosphatase 241 H Assessment and Plan - Plan Hypotension. --Unclear etiology. --Echocardiogram pending to assess cardiac structure selfishness. --Cardiology consulted. Recommendations appreciated. --Will continue to monitor patient's blood pressure levels. Abdominal pain. --CT abdomen pending for further evaluation. --Continue current pain medication regimen. Recurrent syncope --Likely secondary to hypotension. --Will get some orthostatic vital signs. RENALDO. --Likely secondary to hypotension --Nephrology consulted. Recommendations appreciated. Elevated LFTs. --CT abdomen pending for further evaluation. Cough. --Chest x-ray unremarkable for any acute findings. --Continue antitussives. GERD --Continue Protonix. Chest pain. --Likely atypical. --Serial troponins negative. --Echocardiogram pending to assess for distribution functions. --Further management per teacher selection specialist. Headache --Tylenol Prn Nicotine dependence. --Patient counseled on tobacco cessation --Patient on nicotine patch. DVT prophylaxis with heparin subQ. Discharge Plan: Home Plan to discharge in: Greater than 2 days - Advance Directives Does patient have a Living Will: No Does patient have a Durable POA for Healthcare: No - Code Status/Comfort Care Code Status Assessed: Yes Physician Review: Patient Assessed, Agree with Above Assessment and Plan Critical Care: No
--- NOTE | 2024-12-05 12:12 | RAD REPORT ---
EXAM: CT CHEST, ABDOMEN AND PELVIS WITHOUT CONTRAST CLINICAL INDICATION: Female, 69 years old. [facility] MAIN SOB, ABd pain TECHNIQUE: CT chest, abdomen and pelvis was performed, without IV contrast, as per department protoco l. Axial, sagittal and coronal reconstructions were obtained. One or more of the following dose reduction techniques were used: Automated exposure control, adjustment of the mA and/or kV according to the patient size, and/or iterative reconstruction. Unless otherwise specified, incidental findings do not require dedicated imaging follow-up. COMPARISON: No prior exam. FINDINGS: The lack of intravenous contrast limits the sensitivity of this exam for evaluation of solid visceral organs, vascular structures, and retroperitoneum. Chest: LOWER NECK/CHEST WALL: Visualized thyroid gland and soft tissues are normal. LUNGS AND AIRWAYS: Airways are clear. No evidence of airspace or interstitial process, with mild plat elike atelectatic changes noted dependently.. No nodules. PLEURA: No pleural effusion. No pneumothorax. Hemidiaphragms are normally positioned. MEDIASTINUM AND LYMPH NODES: No mediastinal mass or fluid collection. Small calcified right hilar lym ph nodes, may suggest sequelae of remote granulomatous infection. Subcentimeter epicardial lymph nodes, indeterminate. Trace pericardial effusion. THORACIC AORTA: Normal caliber and configuration. PULMONARY ARTERIES: Normal caliber. HEART: Unremarkable. Abdomen/Pelvis LIVER: Innumerable hypoattenuating masses/nodules throughout the liver, largest in the subcapsular le ft lobe anteriorly measuring 4.1 cm. GALLBLADDER/BILE DUCTS: Status post cholecystectomy. No evidence of intrahepatic bile ductal dilation . PANCREAS: No mass, ductal dilation, or geovanni-pancreatic fluid. SPLEEN: Normal size. No focal lesion. ADRENALS: Nonnodular bilateral diffuse thickening more pronounced on the left KIDNEYS AND URETERS: Normal size and contour. No hydronephrosis. GASTROINTESTINAL TRACT: Stomach is non-dilated. Small bowel has normal course and caliber. No colonic wall thickening or pericolonic inflammatory changes. Mild distal colonic diverticulosis without evidence of acute diverticulitis. PERITONEUM: No free fluid. LYMPH NODES: No lymphadenopathy. ABDOMINAL AORTA AND OTHER VESSELS: Normal caliber aorta and IVC. URINARY BLADDER: Normal contour. REPRODUCTIVE ORGANS: No pathologic process. MUSCULOSKELETAL: Rounded lytic lesion along the anterior margin of the right iliac crest measuring 1. 2 cm. Small subtle lytic lesion in the subchondral space along the anterior right acetabulum measuring 6 mm. Questionable lucent lesion within the left pubic bone measuring 11 mm. Numerous other lucent lesions throughout the thoracic and lumbar spine, largest within the body of L5 measuring 12 mm. ADDITIONAL FINDINGS: None IMPRESSION: No acute findings in the chest. Innumerable masses/nodules throughout the liver concerning for metastatic disease. Numerous small lytic lesions throughout the thoracic and lumbar spine and pelvic bones as above, also raises concern for osseous metastatic disease. Other incidental findings as above.
[2024-12-05 14:56] LABS: Magnesium 1.7 mg/dL (1.6-2.4); Phosphorus 2.4 mg/dL (2.5-4.9); Thyroid Stimulating Hormone 3.6 uIU/mL (0.358-3.740); Troponin High Sensitivity 36.2 pg/mL (<58.9)
[2024-12-05 15:33] VITALS: BMI 40.9
[2024-12-05] MEDS: ONDANSETRON 4 MG/2 ML VIAL IV PRN (16:01)
[2024-12-05] MEDS ORDERED: ENOXAPARIN 40 MG/0.4 ML SQ SCH (17:00)
[2024-12-05 17:22] LABS: Specific Gravity 1.012 (1.005-1.030); Sqamous Epithelial <5 /HPF (None Seen); Urine Bacteria None Seen /HPF (<20); Urine Bilirubin NEGATIVE (Negative); Urine Blood Negative (Negative); Urine Clarity Turbid (Clear); Urine Color Light-Yellow (Yellow); Urine Crystals Unidentified Few /HPF (None Seen); Urine Culture Reflex Order NOT NEEDED; Urine Glucose NEGATIVE (Negative); Urine Ketones NEGATIVE (Negative); Urine Microscopic Reflex YN ORDER UMIC; Urine Mucus Slight /HPF (None Seen); Urine Nitrite NEGATIVE (Negative); Urine Protein NEGATIVE (Negative); Urine RBC <5 /HPF (None Seen); Urine Urobilinogen 1+ (Normal); Urine WBC <5 /HPF (<5); Urine WBC Clump Rare /HPF (None Seen); Urine Yeast (Budding) Trace /HPF (None Seen); Urine pH 5.5 (5.0-7.0)
--- NOTE | 2024-12-05 17:52 | P.PN ---
Date of Service: 12/07/24 Subjective Patient's MRI pending; liver biopsy pending. Physical Examination - Vital Signs Reviewed - Physical Exam General: Alert, In no apparent distress, Oriented x3 Respiratory: Clear to auscultation bilaterally, Normal air movement Cardiovascular: Regular rate/rhythm, Normal S1 S2, No murmurs Gastrointestinal: Normal bowel sounds, Soft and benign, Non-distended, No tenderness Musculoskeletal: No clubbing, No swelling, No tenderness Neurological: no focal deficits Assessment & Plan - Problems (Diagnosis) (1) Metastasis to liver with unknown primary site Current Visit: Yes Status: Acute (2) Metastasis to bone of unknown primary Current Visit: Yes Status: Acute (3) Hidradenitis suppurativa Current Visit: No Status: Acute (4) History of depression Current Visit: No Status: Acute (5) History of hypertension Current Visit: No Status: Acute (6) Weight loss Current Visit: Yes Status: Acute - Plan Continue with plan of care as mentioned below: 1. Patient with metastatic disease to the bone and liver from unknown primary; liver biopsy pending; MRI pending. 2. Headache; unknown etiology- MRI pending 3. Weight loss; workup pending. Most likely metastatic disease of unknown primary. Biopsy pending 4. Gi and DVT prophylaxis Discharge Plan: Home Plan to discharge in: Greater than 2 days - Advance Directives Does patient have a Living Will: No Does patient have a Durable POA for Healthcare: No - Code Status/Comfort Care Code Status Assessed: Yes Code Status: Full Code Physician Review: Patient Assessed, Agree with Above Assessment and Plan Critical Care: No Time Spent Managing PTS Care (In Minutes): 30
--- NOTE | 2024-12-05 21:13 | P.CNS ---
Date of Consult: 12/05/24 Reason for Consult: RENALDO Requesting Physician: Taryn Montanez Chief Complaint: Dyspnea History of Present Illness: 69 yo BF HTN presented to the ER with 3 weeks of moderate, worsening dyspnea with associated with malaise, fatigue and weakness. Hypotension noted in the ER. She reports rare NSAIDs including two recent ibuprofen. No difficulty with her bladder. 06:26 This 69 yrs old Black Female presents to ER via Unassigned with complaints of Shortness ec2 Of Breath, Chest Pain, Weakness. 06:26 Patient arrives today for evaluation of chest pain, shortness of breath, generalized ec2 weakness. Patient reports occasional cough that causes some right-sided chest pain. Patient reports that she also feels short of breath that is worse with exertion, symptoms have been ongoing for approximately 3 weeks. No fevers, no chills, no nausea, no vomiting. Patient reports no urinary complaints.. Allergies No Known Allergies Allergy (Verified 07/01/22 15:35) Home medications list reviewed: Yes Home Medications: Amox/Clavulanate [Augmentin 875-125 Tab] 1 tab PO BID 4 Days #8 tab 12/20/23 Doxycycline Hyclate 1 tab PO BID 12/05/24 Levocetirizine Dihydrochloride [Allergy Relief] 1 tab PO DAILY 12/05/24 Losartan/Hydrochlorothiazide [Losartan-Hctz 50-12.5 mg Tab] 1 tab DAILY 12/05/24 Meclizine HCl 1 tab PO BID 12/05/24 Omeprazole 1 tab PO DAILY 12/05/24 - Past Medical/Surgical History Diabetic: No -: HS -: Hypertension -: Depression -: Surgery for HS - Social History Smoking Status: Current some day smoker Alcohol use: No CD- Drugs: No Caffeine use: Yes Place of Residence: Home Review of Systems 10-point ROS is otherwise unremarkable General: Weakness, Malaise Physical Examination Temp Pulse Resp BP Pulse Ox 98.5 F 66 16 93/50 L 98 12/05/24 16:00 12/05/24 16:00 12/05/24 16:00 12/05/24 16:00 12/05/24 16:00 General: In no apparent distress, Oriented x3, Cooperative HEENT: Atraumatic Neck: Supple Respiratory: Clear to auscultation bilaterally, Normal air movement Cardiovascular: No edema, Regular rate/rhythm Gastrointestinal: Soft and benign, Non-distended, No guarding Musculoskeletal: No clubbing, No contractures Integumentary: No rashes, No cyanosis Laboratory Data (last 24 hrs) 12/05/24 12/05/24 07:02 07:02 WBC 6.60 Hgb 12.9 Hct 39.7 Plt Count 336 Sodium 136 Potassium 3.5 BUN 24 H Creatinine 1.83 H Glucose 112 H Total Bilirubin 1.0 AST 174 H ALT 102 H Alkaline Phosphatase 241 H Imagings Data: EXAM: CT CHEST, ABDOMEN AND PELVIS WITHOUT CONTRAST CLINICAL INDICATION: Female, 69 years old. [facility] MAIN SOB, ABd pain TECHNIQUE: CT chest, abdomen and pelvis was performed, without IV contrast, as per department protocol. Axial, sagittal and coronal reconstructions were obtained. One or more of the following dose reduction techniques were used: Automated exposure control, adjustment of the mA and/or kV according to the patient size, and/or iterative reconstruction. Unless otherwise specified, incidental findings do not require dedicated imaging follow-up. COMPARISON: No prior exam. FINDINGS: The lack of intravenous contrast limits the sensitivity of this exam for evaluation of solid visceral organs, vascular structures, and retroperitoneum. Chest: LOWER NECK/CHEST WALL: Visualized thyroid gland and soft tissues are normal. LUNGS AND AIRWAYS: Airways are clear. No evidence of airspace or interstitial process, with mild platelike atelectatic changes noted dependently.. No nodules. PLEURA: No pleural effusion. No pneumothorax. Hemidiaphragms are normally positioned. MEDIASTINUM AND LYMPH NODES: No mediastinal mass or fluid collection. Small ca lcified right hilar lymph nodes, may suggest sequelae of remote granulomatous infection. Subcentimeter epicardial lymph nodes, indeterminate. Trace pericardial effusion. THORACIC AORTA: Normal caliber and configuration. PULMONARY ARTERIES: Normal caliber. HEART: Unremarkable. Abdomen/Pelvis LIVER: Innumerable hypoattenuating masses/nodules throughout the liver, largest in the subcapsular left lobe anteriorly measuring 4.1 cm. GALLBLADDER/BILE DUCTS: Status post cholecystectomy. No evidence of intrahepatic bile ductal dilation. PANCREAS: No mass, ductal dilation, or geovanni-pancreatic fluid. SPLEEN: Normal size. No focal lesion. ADRENALS: Nonnodular bilateral diffuse thickening more pronounced on the left KIDNEYS AND URETERS: Normal size and contour. No hydronephrosis. GASTROINTESTINAL TRACT: Stomach is non-dilated. Small bowel has normal course and caliber. No colonic wall thickening or pericolonic inflammatory changes. Mild distal colonic diverticulosis without evidence of acute diverticulitis. PERITONEUM: No free fluid. LYMPH NODES: No lymphadenopathy. ABDOMINAL AORTA AND OTHER VESSELS: Normal caliber aorta and IVC. URINARY BLADDER: Normal contour. REPRODUCTIVE ORGANS: No pathologic process. MUSCULOSKELETAL: Rounded lytic lesion along the anterior margin of the right iliac crest measuring 1.2 cm. Small subtle lytic lesion in the subchondral space along the anterior right acetabulum measuring 6 mm. Questionable lucent lesion within the left pubic bone measuring 11 mm. Numerous other lucent lesions throughout the thoracic and lumbar spine, largest within the body of L5 measuring 12 mm. ADDITIONAL FINDINGS: None IMPRESSION: No acute findings in the chest. Innumerable masses/nodules throughout the liver concerning for metastatic disease. Numerous small lytic lesions throughout the thoracic and lumbar spine and pelvic bones as above, also raises concern for osseous metastatic disease. Other incidental findings as above. EXAMINATION: ONE VIEW CHEST XR CLINICAL INDICATION: Female, 69 years old.,COUGH TECHNIQUE: Frontal chest projection is submitted. Examination is limited by patient positioning and technique. COMPARISON: No prior exam. FINDINGS: The lungs are well inflated and clear apart from thickening or atelectasis along the right minor fissure. No pneumothorax or sizable effusion. The heart is normal in size. Mediastinal contours are unremarkable. IMPRESSION: No acute intrathoracic abnormalities. Conclusions/Impression: Stage II RENALDO in the setting of hypotension complicated by rare ibuprofen -No NSAIDs -Start IVF with NS HTN complicated by hypotension -Hold antihypertensives -Start IVF with NS Elevated AST/ ALT likely due to suspected malignancy -Consider oncology evaluation Hypoalbuminemia -Consider protein supplementation Hypercalcemia in the setting of suspected malignancy Hypophosphatemia -Start IVF with NS Cigarette Smoker -Recommend cessation Hospitalist and ER notes reviewed Thank you kindly for the consultation
[2024-12-05] MEDS: NA CHLORIDE 0.9% 1,000 ML IV SCH (21:53)
[2024-12-06] MEDS: PANTOPRAZOLE 40MG TABLET PO SCH (06:04)
[2024-12-06 06:29] LABS: Absolute Eosinophils 0.1 K/uL (0-0.5); Absolute Lymphocytes (CBC) 1.4 K/uL (0.7-4.9); Absolute Monocytes 0.4 K/uL (0.1-1.3); Basophils % 0.3 % (0-1.3); Eosinophils % 0.9 % (0-4.4); Hematocrit 34.9 % (36.0-45.0); Hemoglobin 11.6 g/dL (12.0-15.0); Lymphocytes % 23.7 % (15.3-44.8); MCH 27.3 pg (27.0-35.0); MCHC 33.3 g/dL (32.0-36.0); MCV 81.8 fL (80-100); MPV 8.6 fL (7.6-11.3); Monocytes % 7.6 % (3.3-12.3); Neutrophils % 67.5 % (41.7-73.7); Nucleated Red Blood Cells % 0.2 % (0-0); Platelets 265 thou/uL (152-406); RBC Red Blood Cell Count 4.26 M/uL (3.86-4.86); Red Cell Distribution Width 15.6 % (12.1-15.2)
[2024-12-06 06:54] LABS: Albumin 2.3 g/dL (3.4-5.0); Albumin/Globulin Ratio 0.4 (1.1-1.8); Anion Gap 7.8 mEq/L (5.0-15.0); Bilirubin Direct 0.3 mg/dL (0-0.2); Bilirubin Indirect, Calculated 0.3 mg/dL (0.2-0.8); Bilirubin Total 0.6 mg/dL (0.2-1.0); Globulin 5.9 g/dL (2.3-3.5); Potassium 3.8 mEq/L (3.5-5.1); Protein, Total 8.2 g/dL (6.4-8.2); Uric Acid 8.1 mg/dL (2.6-6.0)
[2024-12-06] MEDS: MECLIZINE HCL 12.5 MG TAB PO SCH (08:32)
[2024-12-06] MEDS: DOXYCYCLINE 100 MG CAP PO SCH (08:32)
[2024-12-06] MEDS: AMOX/K CLAV 875 MG TAB PO SCH (08:32)
[2024-12-06] MEDS: LORATADINE 10 MG TAB PO SCH (08:33)
[2024-12-06] MEDS: NICOTINE 14 MG/PAT TD SCH (08:33)
[2024-12-06] MEDS: NA CHLORIDE 0.9% 1,000 ML IV SCH (18:05)
[2024-12-06] MEDS: HYDROCODONE/APAP 10/325 TAB PO PRN (18:05)
--- NOTE | 2024-12-06 20:28 | P.PN ---
Date of Service: 12/06/24 Vital Signs Temp Pulse Resp BP Pulse Ox 98.3 F 77 16 128/65 96 12/06/24 16:00 12/06/24 16:00 12/06/24 16:00 12/06/24 16:00 12/06/24 16:00 Medications Hydrocodone Bitart/Acetaminophen (Hydrocodone/Apap 10/325 Tab) 1 tab PO Q6H PRN PRN Reason: Pain scale 5-7 (Moderate) Last Admin: 12/06/24 18:05 Dose: 1 tab Sodium Chloride (Ns 1000 Ml Ivbag) 1,000 mls @ 70 mls/hr IV .[id number] [facility] Last Admin: 12/06/24 18:05 Dose: 1,000 mls Loratadine (Loratadine 10 Mg Tab) 10 mg PO DAILY [facility] Last Admin: 12/06/24 08:33 Dose: 10 mg Meclizine HCl (Meclizine Hcl 12.5 Mg Tab) 25 mg PO BID [facility] Last Admin: 12/06/24 08:32 Dose: 25 mg Nicotine (Nicotine 14 Mg/Pat) 14 mg TD DAILY [facility] Last Admin: 12/06/24 08:33 Dose: 14 mg Ondansetron HCl (Ondansetron 4 Mg/2 Ml Vial) 4 mg IV Q6HP PRN PRN Reason: NAUSEA / VOMITING Last Admin: 12/05/24 22:01 Dose: 4 mg Pantoprazole Sodium (Pantoprazole 40mg Tablet) 40 mg PO DAILYAC [facility] Last Admin: 12/06/24 06:04 Dose: 40 mg Lab Results (last 24 hrs) 12/05/24 06:26: Urine Color Cancelled, Urine Clarity Cancelled, Urine pH Cancelled, Ur Specific [place] Cancelled, Glucose (UA)(Auto) Cancelled, Urine Ketones Cancelled, Urine Blood Cancelled, Urine Nitrite Cancelled, Urine Bilirubin Cancelled, Urine Urobilinogen Cancelled, Ur Leukocyte Esterase Cancelled, Urine RBC Cancelled, Urine Red Cell Clumps Cancelled, Urine WBC Cancelled, Urine WBC Clumps Cancelled, Ur Squamous Epith Cells Cancelled, U Non- Squamous Epi Cells Cancelled, Ur Transition Epith Cell Cancelled, Ur Renal Epithelial Cell Cancelled, Calcium Carbonate Cryst Cancelled, Calcium Oxalate Crystal Cancelled, Leucine Crystals Cancelled, Cystine Crystals Cancelled, Uric Acid Crystals Cancelled, Triple Phos Crystals Cancelled, Tyrosine Crystals Cancelled, Unidentified Crystals Cancelled, Amorphous Crystals Cancelled, Urine Bacteria Cancelled, Hyaline Casts Cancelled, Granular Casts Cancelled, Waxy Casts Cancelled, RBC Casts Cancelled, WBC Casts Cancelled, Urine Mucus Cancelled, Urine Trichomonas Cancelled, Ur Yeast w Hyphae Cancelled, Urine Yeast (Budding) Cancelled, Urine Sperm Cancelled, Ur Oval Fat Bodies Cancelled, Urine Culture Reflexed Cancelled, Urine Total Protein Cancelled, Urine Ascorbic Acid Cancelled, Urine Fat Cancelled Assessment/ Plan: Nephrology No dyspnea No chest pain Feeling better today with improved appetite No acute events overnight Vitals, medications, blood work and imaging reviewed in the chart General: In no apparent distress, Oriented x3, Cooperative HEENT: Atraumatic Neck: Supple Respiratory: Clear to auscultation bilaterally, Normal air movement Cardiovascular: No edema, Regular rate/rhythm Gastrointestinal: Soft and benign, Non-distended, No guarding Musculoskeletal: No clubbing, No contractures Integumentary: No rashes, No cyanosis Laboratory Data (last 24 hrs) 12/05/24 12/05/24 07:02 07:02 WBC 6.60 Hgb 12.9 Hct 39.7 Plt Count 336 Sodium 136 Potassium 3.5 BUN 24 H Creatinine 1.83 H Glucose 112 H Total Bilirubin 1.0 AST 174 H ALT 102 H Alkaline Phosphatase 241 H Imagings Data: EXAM: CT CHEST, ABDOMEN AND PELVIS WITHOUT CONTRAST CLINICAL INDICATION: Female, 69 years old. [facility] MAIN SOB, ABd pain TECHNIQUE: CT chest, abdomen and pelvis was performed, without IV contrast, as per department protocol. Axial, sagittal and coronal reconstructions were obtained. One or more of the following dose reduction techniques were used: Automated exposure control, adjustment of the mA and/or kV according to the patient size, and/or iterative reconstruction. Unless otherwise specified, incidental findings do not require dedicated imaging follow-up. COMPARISON: No prior exam. FINDINGS: The lack of intravenous contrast limits the sensitivity of this exam for evaluation of solid visceral organs, vascular structures, and retroperitoneum. Chest: LOWER NECK/CHEST WALL: Visualized thyroid gland and soft tissues are normal. LUNGS AND AIRWAYS: Airways are clear. No evidence of airspace or interstitial process, with mild platelike atelectatic changes noted dependently.. No nodules. PLEURA: No pleural effusion. No pneumothorax. Hemidiaphragms are normally positioned. MEDIASTINUM AND LYMPH NODES: No mediastinal mass or fluid collection. Small calcified right hilar lymph nodes, may suggest sequelae of remote granulomatous infection. Subcentimeter epicardial lymph nodes, indeterminate. Trace pericardial effusion. THORACIC AORTA: Normal caliber and configuration. PULMONARY ARTERIES: Normal caliber. HEART: Unremarkable. Abdomen/Pelvis LIVER: Innumerable hypoattenuating masses/nodules throughout the liver, largest in the subcapsular left lobe anteriorly measuring 4.1 cm. GALLBLADDER/BILE DUCTS: Status post cholecystectomy. No evidence of intrahepatic bile ductal dilation. PANCREAS: No mass, ductal dilation, or geovanni-pancreatic fluid. SPLEEN: Normal size. No focal lesion. ADRENALS: Nonnodular bilateral diffuse thickening more pronounced on the left KIDNEYS AND URETERS: Normal size and contour. No hydronephrosis. GASTROINTESTINAL TRACT: Stomach is non-dilated. Small bowel has normal course and caliber. No colonic wall thickening or pericolonic inflammatory changes. Mild distal colonic diverticulosis without evidence of acute diverticulitis. PERITONEUM: No free fluid. LYMPH NODES: No lymphadenopathy. ABDOMINAL AORTA AND OTHER VESSELS: Normal caliber aorta and IVC. URINARY BLADDER: Normal contour. REPRODUCTIVE ORGANS: No pathologic process. MUSCULOSKELETAL: Rounded lytic lesion along the anterior margin of the right iliac crest measuring 1.2 cm. Small subtle lytic lesion in the subchondral space along the anterior right acetabulum measuring 6 mm. Questionable lucent lesion within the left pubic bone measuring 11 mm. Numerous other lucent lesions throughout the thoracic and lumbar spine, largest within the body of L5 measuring 12 mm. ADDITIONAL FINDINGS: None IMPRESSION: No acute findings in the chest. Innumerable masses/nodules throughout the liver concerning for metastatic disease. Numerous small lytic lesions throughout the thoracic and lumbar spine and pelvic bones as above, also raises concern for osseous metastatic disease. Other incidental findings as above. EXAMINATION: ONE VIEW CHEST XR CLINICAL INDICATION: Female, 69 years old.,COUGH TECHNIQUE: Frontal chest projection is submitted. Examination is limited by patient positioning and technique. COMPARISON: No prior exam. FINDINGS: The lungs are well inflated and clear apart from thickening or atelectasis along the right minor fissure. No pneumothorax or sizable effusion. The heart is normal in size. Mediastinal contours are unremarkable. IMPRESSION: No acute intrathoracic abnormalities. Conclusions/Impression: Stage II RENALDO in the setting of hypotension complicated by rare ibuprofen -No NSAIDs -Continue IVF with NS HTN complicated by hypotension -Hold antihypertensives -Continue IVF with NS Elevated AST/ ALT likely due to suspected malignancy -Consider oncology evaluation Hypoalbuminemia -Consider protein supplementation Anemia in chronic illness -Monitor H&H Hypercalcemia in the setting of suspected malignancy Hypophosphatemia -Continue IVF with NS -Encourage nutrition Cigarette Smoker -Recommend cessation
--- NOTE | 2024-12-06 20:38 | RAD REPORT ---
EXAMINATION: MRI BRAIN WITHOUT AND WITH CONTRAST CLINICAL INDICATION: Brain mets TECHNIQUE: Multiplanar multisequence MR images of the brain were obtained without and with intravenou s contrast. Unless otherwise specified, incidental findings do not require dedicated imaging follow-up. COMPARISON: No prior exam. FINDINGS: INTRACRANIAL: Numerous intra-axial enhancing masses are present in both the posterior fossa and supra tentorial compartment. In the right cerebellar hemisphere posteriorly the largest lesion measures 14 mm. Right temporal lobe lesion measures 8 mm. Left superior frontal lobe lesions are present large st measuring 16 mm. These lesions are mildly FLAIR hyperintense and demonstrate significant postcontrast enhancement. Total number of metastatic deposits estimated between 5-10. Limited edema i s present surrounding these lesions. VASCULATURE: Normal signal voids in the larger intracranial arteries and dural venous sinuses. SINUSES: The paranasal sinuses and mastoid air cells are predominantly clear. BONE: The marrow signal pattern is within normal limits. CONTRAST: Diffuse pattern of dural enhancement is seen greater on the right. OTHER FINDINGS: No bleed, midline shift, hydrocephalus. IMPRESSION: Multiple enhancing intra-axial lesions seen with diffuse dural enhancement as described most compatib le with brain metastases.
[2024-12-07 06:02] LABS: Absolute Basophils 0.1 K/uL (0-0.5); Absolute Lymphocytes (CBC) 1.7 K/uL (0.7-4.9); Absolute Monocytes 0.6 K/uL (0.1-1.3); Absolute Neutrophil 4.3 K/uL (1.8-8.0); Basophils % 0.8 % (0-1.3); Eosinophils % 0.7 % (0-4.4); Hematocrit 34.4 % (36.0-45.0); Hemoglobin 11.6 g/dL (12.0-15.0); Lymphocytes % 24.8 % (15.3-44.8); MCH 27.5 pg (27.0-35.0); MCHC 33.8 g/dL (32.0-36.0); MCV 81.4 fL (80-100); MPV 9.3 fL (7.6-11.3); Neutrophils % 64.7 % (41.7-73.7); Nucleated Red Blood Cells % 0.1 % (0-0); Platelets 233 thou/uL (152-406); RBC Red Blood Cell Count 4.23 M/uL (3.86-4.86); Red Cell Distribution Width 15.7 % (12.1-15.2)
[2024-12-07 06:22] LABS: PT Prothrombin Time 14.6 SECONDS (10-13.0); PTT, Activated Partial Thromb 34.6 SECONDS (27.2-37.4); Protime INR 1.3
[2024-12-07 06:25] LABS: Albumin 2.4 g/dL (3.4-5.0); Albumin/Globulin Ratio 0.4 (1.1-1.8); Anion Gap 8.3 mEq/L (5.0-15.0); Bilirubin Total 0.8 mg/dL (0.2-1.0); Globulin 5.7 g/dL (2.3-3.5); Magnesium 1.6 mg/dL (1.6-2.4); Potassium 4.3 mEq/L (3.5-5.1); Protein, Total 8.1 g/dL (6.4-8.2)
[2024-12-07] MEDS: NACHLORIDE 0.45% 1,000 ML IV SCH (08:26)
[2024-12-07] MEDS: MIDAZOLAM HCL 2 MG/2 ML INJ ONE (10:46)
[2024-12-07] MEDS: FLUMAZENIL 0.1 MG/ML (5 mL VIAL) IV ONE (10:46)
[2024-12-07] MEDS: NALOXONE HCL 2 MG/2 ML VIAL ONE (10:47)
[2024-12-07] MEDS: FENTANYL CITR 100 MCG/2 ML ONE (10:47)
--- NOTE | 2024-12-07 11:46 | ECHO ---
HEIGHT: 5 ft 3 in WEIGHT: 231 lb 0 oz DATE OF STUDY: 12/06/[address]: Chelo Powell 2-DIMENSIONAL: YES M.MODE: YES DOPPLER: YES COLOR FLOW: YES TDS: YES PORTABLE: YES DEFINITY: BUBBLE STUDY: DIAGNOSIS: CHEST PAIN CARDIAC HISTORY: CATHERIZATION: NO SURGERY: NO PROSTHETIC VALVE: NO PACEMAKER: NO MEASUREMENTS (cm) DIASTOLIC (NORMALS) SYSTOLIC (NORMALS) IVSd 1.1 (0.6-1.2) LA Diam 2.3 (1.9-4.0) LVEF 60-65% LVIDd 3.6 (3.5-5.7) LVIDs 2.4 (2.0-3.5) %FS 34% LVPWd 1.2 (0.6-1.2) Ao Diam 2.5 (2.0-3.7) 2 DIMENSIONAL ASSESSMENT: RIGHT ATRIUM: NORMAL LEFT ATRIUM: NORMAL RIGHT VENTRICLE: NORMAL LEFT VENTRICLE: NORMAL TRICUSPID VALVE: TRACE TRICUSPID REGURGITATION MITRAL VALVE: NORMAL PULMONIC VALVE: NORMAL AORTIC VALVE: NORMAL PERICARDIAL EFFUSION: NONE AORTIC ROOT: NORMAL LEFT VENTRICULAR WALL MOTION: NORMAL DOPPLER/COLOR FLOW: GRADE I DIASTOLIC DYSFUNCTION COMMENTS: 1. NORMAL LEFT VENTRICULAR SYSTOLIC FUNCTION, EJECTION FRACTION 60-65%, NORMAL WALL MOTION 2. GRADE I DIASTOLIC DYSFUNCTION 3. NORMAL FILLING PRESSURE TECHNOLOGIST: JOLLY VENTURA
--- NOTE | 2024-12-07 11:56 | P.CNS ---
Date of Consult: 12/07/24 Chief Complaint: Dyspnea History of Present Illness: Patient with PMH of HTN, presented with generalized weakness, fatigue, abdominal pain and worsening SOB, denies chest pain, no palpitations, no syncope. Allergies No Known Allergies Allergy (Verified 07/01/22 15:35) Home medications list reviewed: Yes Home Medications: Amox/Clavulanate [Augmentin 875-125 Tab] 1 tab PO BID 4 Days #8 tab 12/20/23 Doxycycline Hyclate 1 tab PO BID 12/05/24 Levocetirizine Dihydrochloride [Allergy Relief] 1 tab PO DAILY 12/05/24 Losartan/Hydrochlorothiazide [Losartan-Hctz 50-12.5 mg Tab] 1 tab DAILY 12/05/24 Meclizine HCl 1 tab PO BID 12/05/24 Omeprazole 1 tab PO DAILY 12/05/24 - Past Medical/Surgical History Diabetic: No -: HS -: Hypertension -: Depression -: Surgery for HS - Social History Smoking Status: Current some day smoker Alcohol use: No CD- Drugs: No Caffeine use: Yes Place of Residence: Home Review of Systems 10-point ROS is otherwise unremarkable Physical Examination Temp Pulse Resp BP Pulse Ox 98.3 F 70 16 112/78 95 12/07/24 08:00 12/07/24 08:00 12/07/24 08:00 12/07/24 08:00 12/07/24 08:00 General: Alert, In no apparent distress HEENT: Atraumatic, PERRLA, Mucous membr. moist/pink, EOMI, Sclerae nonicteric Neck: Supple, 2+ carotid pulse no bruit, No LAD, Without JVD or thyroid abnormality Respiratory: Clear to auscultation bilaterally, Normal air movement Cardiovascular: Regular rate/rhythm, Normal S1 S2 Gastrointestinal: Normal bowel sounds, No tenderness Musculoskeletal: No tenderness Integumentary: No rashes Neurological: Normal gait, Normal speech, Normal tone, Normal affect Lymphatics: No axilla or inguinal lymphadenopathy - Problems (1) SOB (shortness of breath) Current Visit: Yes Status: Acute Plan: Patient echo shows normal EF with grade I DD, normal filling pressures no more cardiac work up needed continue to monitor. (2) History of hypertension Current Visit: No Status: Acute Plan: BP medications are on hold and her BP is normal, continue to monitor Cardiology will sign off, please call with any questions.
--- NOTE | 2024-12-07 12:40 | EKG ---
Test Date: 2024-12-05 Test Time: 06:29:35 [employer]: KALEB MEASUREMENT RESULTS: Intervals: Rate: 87 CO: 148 QRSD: 80 QT: 348 QTc: 418 Thompson: P: 66 CO: 148 QRS: 17 T: 57 INTERPRETIVE STATEMENTS: Normal sinus rhythm with sinus arrhythmia Cannot rule out Anterior infarct, age undetermined Abnormal ECG Compared to ECG 12/29/2004 23:49:00 Myocardial infarct finding now present Electronically Signed On 12-07-24 12:29:26 CDT by Nish Johnson
--- NOTE | 2024-12-07 12:45 | RAD REPORT ---
EXAMINATION: Liver Biopsy Perc CT INDICATION: Liver mets; unknown primary Pre-procedure diagnosis: Liver masses Post-procedure diagnosis: Same as above. COMPLICATIONS: No immediate complications. PROCEDURE DETAILS: Consent: Informed consent for the procedure was obtained following discussion of the risks, benefits and alternatives with the patient. Time-out was performed prior to the procedure. Sedation: Moderate sedation (conscious sedation) Administered by: Nurse, or other independent traine d observer, with level of consciousness and vital signs continuously monitored. Total sedation administered: 2 mL Versed and 100 mcg Fentanyl. Total intra-service sedation time: 45 minutes. Biopsy: The area was prepped and draped in the usual sterile fashion. Initial scanning revealed vague liver masses. Local anesthesia was administered. Under CT guidance, an 18 gauge biopsy needle was advanced to the target and biopsy was performed. Number of specimens/passes: 3 Additional sampling description: None. Preliminary assessment of sample adequacy: Not applicable. The biopsy needle was removed and a sterile dressing was applied. Post-biopsy imaging findings: No immediate complications seen. Estimated blood loss: Less than 10 mL. IMPRESSION: Technically successful CT-guided biopsy of left lobe of the liver mass.
[2024-12-07] MEDS: PAMIDRONATE DISOD 30 MG VIAL IV ONE (14:21)
[2024-12-07] MEDS: PAMIDRONATE 90 MG in NA CHLORIDE 0.9% 500 ML IV ONE (16:14)
--- NOTE | 2024-12-07 21:44 | P.PN ---
Date of Service: 12/07/24 Vital Signs Temp Pulse Resp BP Pulse Ox 97.6 F 69 17 137/74 97 12/07/24 20:00 12/07/24 20:00 12/07/24 20:00 12/07/24 20:00 12/07/24 20:00 Medications Hydrocodone Bitart/Acetaminophen (Hydrocodone/Apap 10/325 Tab) 1 tab PO Q6H PRN PRN Reason: Pain scale 5-7 (Moderate) Last Admin: 12/06/24 18:05 Dose: 1 tab Sodium Chloride (Sodium Chloride 0.45%) 1,000 mls @ 75 mls/hr IV .[id number] [facility] Last Admin: 12/07/24 08:26 Dose: 1,000 mls Loratadine (Loratadine 10 Mg Tab) 10 mg PO DAILY [facility] Last Admin: 12/07/24 08:10 Dose: Not Given Meclizine HCl (Meclizine Hcl 12.5 Mg Tab) 25 mg PO BID [facility] Last Admin: 12/07/24 08:10 Dose: Not Given Morphine Sulfate (Morphine 4 Mg/Ml Syr) 2 mg IV Q4H PRN PRN Reason: Pain scale 8-10 (Severe) Nicotine (Nicotine 14 Mg/Pat) 14 mg TD DAILY [facility] Last Admin: 12/07/24 08:26 Dose: 14 mg Ondansetron HCl (Ondansetron 4 Mg/2 Ml Vial) 4 mg IV Q6HP PRN PRN Reason: NAUSEA / VOMITING Last Admin: 12/05/24 22:01 Dose: 4 mg Pantoprazole Sodium (Pantoprazole 40mg Tablet) 40 mg PO ACB [facility] Lab Results (last 24 hrs) 12/07/24 05:47: Sodium 145 D, Potassium 4.3 D, Chloride 112 H, Carbon Dioxide 29, Anion Gap 8.3, BUN 16, Creatinine 1.34 H, Est GFR (CKD-EPI) 43 L, Glucose 96, Calcium 11.0 H, Magnesium 1.6, Total Bilirubin 0.8, AST 162 H, ALT 94 H, Alkaline Phosphatase 221 H, Serum Total Protein 8.1, Albumin 2.4 L, Globulin 5.7 H, Albumin/Globulin Ratio 0.4 L 12/07/24 05:47: PT 14.6 H, INR 1.30, APTT 34.6 12/07/24 05:47: WBC 6.70, RBC 4.23, Hgb 11.6 L, Hct 34.4 L, MCV 81.4, MCH 27.5, MCHC 33.8, RDW 15.7 H, Plt Count 233, MPV 9.3, Neutrophils % 64.7, Lymphocytes % 24.8, Monocytes % 9.0, Eosinophils % 0.7, Basophils % 0.8, Absolute Neutrophils 4.3, Absolute Lymphocytes 1.7, Absolute Monocytes 0.6, Absolute Eosinophils 0.0, Absolute Basophils 0.1 12/07/24 05:00: PT Cancelled, INR Cancelled, APTT Cancelled Assessment/ Plan: Nephrology No dyspnea No chest pain Headache No acute events overnight Vitals, medications, blood work and imaging reviewed in the chart General: In no apparent distress, Oriented x3, Cooperative HEENT: Atraumatic Neck: Supple Respiratory: Clear to auscultation bilaterally, Normal air movement Cardiovascular: No edema, Regular rate/rhythm Gastrointestinal: Soft and benign, Non-distended, No guarding Musculoskeletal: No clubbing, No contractures Integumentary: No rashes, No cyanosis Laboratory Data (last 24 hrs) 12/05/24 12/05/24 07:02 07:02 WBC 6.60 Hgb 12.9 Hct 39.7 Plt Count 336 Sodium 136 Potassium 3.5 BUN 24 H Creatinine 1.83 H Glucose 112 H Total Bilirubin 1.0 AST 174 H ALT 102 H Alkaline Phosphatase 241 H Imagings Data: EXAM: CT CHEST, ABDOMEN AND PELVIS WITHOUT CONTRAST CLINICAL INDICATION: Female, 69 years old. [facility] MAIN SOB, ABd pain TECHNIQUE: CT chest, abdomen and pelvis was performed, without IV contrast, as per department protocol. Axial, sagittal and coronal reconstructions were obtained. One or more of the following dose reduction techniques were used: Automated exposure control, adjustment of the mA and/or kV according to the patient size, and/or iterative reconstruction. Unless otherwise specified, incidental findings do not require dedicated imaging follow-up. COMPARISON: No prior exam. FINDINGS: The lack of intravenous contrast limits the sensitivity of this exam for evaluation of solid visceral organs, vascular structures, and retroperitoneum. Chest: LOWER NECK/CHEST WALL: Visualized thyroid gland and soft tissues are normal. LUNGS AND AIRWAYS: Airways are clear. No evidence of airspace or interstitial process, with mild platelike atelectatic changes noted dependently.. No nodules. PLEURA: No pleural effusion. No pneumothorax. Hemidiaphragms are normally positioned. MEDIASTINUM AND LYMPH NODES: No mediastinal mass or fluid collection. Small calcified right hilar lymph nodes, may suggest sequelae of remote granulomatous infection. Subcentimeter epicardial lymph nodes, indeterminate. Trace pericardial effusion. THORACIC AORTA: Normal caliber and configuration. PULMONARY ARTERIES: Normal caliber. HEART: Unremarkable. Abdomen/Pelvis LIVER: Innumerable hypoattenuating masses/nodules throughout the liver, largest in the subcapsular left lobe anteriorly measuring 4.1 cm. GALLBLADDER/BILE DUCTS: Status post cholecystectomy. No evidence of intrahepatic bile ductal dilation. PANCREAS: No mass, ductal dilation, or geovanni-pancreatic fluid. SPLEEN: Normal size. No focal lesion. ADRENALS: Nonnodular bilateral diffuse thickening more pronounced on the left KIDNEYS AND URETERS: Normal size and contour. No hydronephrosis. GASTROINTESTINAL TRACT: Stomach is non-dilated. Small bowel has normal course and caliber. No colonic wall thickening or pericolonic inflammatory changes. Mild distal colonic diverticulosis without evidence of acute diverticulitis. PERITONEUM: No free fluid. LYMPH NODES: No lymphadenopathy. ABDOMINAL AORTA AND OTHER VESSELS: Normal caliber aorta and IVC. URINARY BLADDER: Normal contour. REPRODUCTIVE ORGANS: No pathologic process. MUSCULOSKELETAL: Rounded lytic lesion along the anterior margin of the right iliac crest measuring 1.2 cm. Small subtle lytic lesion in the subchondral space along the anterior right acetabulum measuring 6 mm. Questionable lucent lesion within the left pubic bone measuring 11 mm. Numerous other lucent lesions throughout the thoracic and lumbar spine, largest within the body of L5 measuring 12 mm. ADDITIONAL FINDINGS: None IMPRESSION: No acute findings in the chest. Innumerable masses/nodules throughout the liver concerning for metastatic disease. Numerous small lytic lesions throughout the thoracic and lumbar spine and pelvic bones as above, also raises concern for osseous metastatic disease. Other incidental findings as above. EXAMINATION: ONE VIEW CHEST XR CLINICAL INDICATION: Female, 69 years old.,COUGH TECHNIQUE: Frontal chest projection is submitted. Examination is limited by patient positioning and technique. COMPARISON: No prior exam. FINDINGS: The lungs are well inflated and clear apart from thickening or atelectasis along the right minor fissure. No pneumothorax or sizable effusion. The heart is normal in size. Mediastinal contours are unremarkable. IMPRESSION: No acute intrathoracic abnormalities. Conclusions/Impression: Stage II RENALDO in the setting of hypotension complicated by rare ibuprofen -No NSAIDs -Continue IVF with NS HTN complicated by hypotension -Hold antihypertensives -Change IVF to 1/2NS Elevated AST/ ALT likely due to suspected malignancy -Liver biopsy pending Hypoalbuminemia -Consider protein supplementation Anemia in chronic illness -Monitor H&H Hypercalcemia in the setting of suspected malignancy Hypophosphatemia -Continue IVF -Encourage nutrition Cigarette Smoker -Recommend cessation
[2024-12-07] MEDS: MORPHINE 4 MG/ML SYR IV PRN (21:52)
[2024-12-08 05:40] LABS: Anion Gap 7.7 mEq/L (5.0-15.0); Magnesium 1.5 mg/dL (1.6-2.4); Phosphorus 2.3 mg/dL (2.5-4.9); Potassium 3.7 mEq/L (3.5-5.1)
[2024-12-08] MEDS: PNEUMOCOCCAL VACCINE 0.5 ML IMVAC ONE (07:52)
[2024-12-08] MEDS: Magnesium Sulfate 2gm IVPB 2 G/50 ML BAG IV ONE (08:07)
[2024-12-08] MEDS: PANTOPRAZOLE 40MG TABLET PO SCH (08:08)
[2024-12-08] MEDS: POTASSIUM CL SA 10 MEQ TAB PO ONE (08:08)
[2024-12-08] MEDS: POTASS/SODIUM PHOSPHATE 1 PKT POWD.PACK PO SCH (08:08)
[2024-12-08 15:46] LABS: Abnormal Protein Band 1 REPORT; Albumin, (SPE) 2.7 g/dL (3.8-4.8); Alpha-1-Globulins 0.4 g/dL (0.2-0.3); Alpha-2-Globulins 0.9 g/dL (0.5-0.9); Beta 1 Globulin 0.5 g/dL (0.4-0.6); Gamma Globulins 2.1 g/dL (0.8-1.7); INTERPRETATION REPORT; Total Protein 7.4 g/dL (6.1-8.1)
[2024-12-08 21:35] LABS: KAPPA LIGHT CHAIN, FREE SERUM 108.2 mg/L (3.3-19.4); LAMBDA LIGHT CHAIN, FREE SERUM 103.2 mg/L (5.7-26.3)
--- NOTE | 2024-12-09 06:28 | P.PN ---
Date of Service: 12/08/24 Vital Signs Temp Pulse Resp BP Pulse Ox 98.5 F 80 16 143/81 H 96 12/09/24 04:00 12/09/24 04:00 12/09/24 04:00 12/09/24 04:00 12/09/24 04:00 Medications Hydrocodone Bitart/Acetaminophen (Hydrocodone/Apap 10/325 Tab) 1 tab PO Q6H PRN PRN Reason: Pain scale 5-7 (Moderate) Last Admin: 12/06/24 18:05 Dose: 1 tab Sodium Chloride (Sodium Chloride 0.45%) 1,000 mls @ 75 mls/hr IV .[id number] [facility] Last Admin: 12/08/24 18:42 Dose: 1,000 mls Loratadine (Loratadine 10 Mg Tab) 10 mg PO DAILY [facility] Last Admin: 12/08/24 08:07 Dose: 10 mg Magnesium Chloride (Magnesium Chloride 64 Mg Tab) 64 mg PO BID [facility] Meclizine HCl (Meclizine Hcl 12.5 Mg Tab) 25 mg PO BID [facility] Last Admin: 12/08/24 20:10 Dose: 25 mg Morphine Sulfate (Morphine 4 Mg/Ml Syr) 2 mg IV Q4H PRN PRN Reason: Pain scale 8-10 (Severe) Last Admin: 12/08/24 20:16 Dose: 2 mg Nicotine (Nicotine 14 Mg/Pat) 14 mg TD DAILY [facility] Last Admin: 12/08/24 08:08 Dose: 14 mg Ondansetron HCl (Ondansetron 4 Mg/2 Ml Vial) 4 mg IV Q6HP PRN PRN Reason: NAUSEA / VOMITING Last Admin: 12/05/24 22:01 Dose: 4 mg Pantoprazole Sodium (Pantoprazole 40mg Tablet) 40 mg PO ACB [facility] Last Admin: 12/08/24 08:08 Dose: 40 mg Lab Results (last 24 hrs) 12/05/24 16:33: Total Protein 7.4, Albumin 2.7 L, Honvq-3-Lobxgzmew 0.4 H, Gdxnn-9-Vuermukdx 0.9, Gamma Globulins 2.1 H, M-Mohamud Report, M-Mohamud 2 [employer] SPECIALIST, Abnorm Protein Band 3 [employer] DATA SPECIALIST, PEP Interpretation Report H, [address]/Lambda Ratio 1.05, Free [address] Light Chains 108.2 H, Free Lambda Light Chain 103.2 H Assessment/ Plan: Nephrology No dyspnea No chest pain Fatigue No acute events overnight Vitals, medications, blood work and imaging reviewed in the chart General: In no apparent distress, Oriented x3, Cooperative HEENT: Atraumatic Neck: Supple Respiratory: Clear to auscultation bilaterally, Normal air movement Cardiovascular: No edema, Regular rate/rhythm Gastrointestinal: Soft and benign, Non-distended, No guarding Musculoskeletal: No clubbing, No contractures Integumentary: No rashes, No cyanosis Laboratory Data (last 24 hrs) 12/05/24 12/05/24 07:02 07:02 WBC 6.60 Hgb 12.9 Hct 39.7 Plt Count 336 Sodium 136 Potassium 3.5 BUN 24 H Creatinine 1.83 H Glucose 112 H Total Bilirubin 1.0 AST 174 H ALT 102 H Alkaline Phosphatase 241 H Imagings Data: EXAM: CT CHEST, ABDOMEN AND PELVIS WITHOUT CONTRAST CLINICAL INDICATION: Female, 69 years old. [facility] MAIN SOB, ABd pain TECHNIQUE: CT chest, abdomen and pelvis was performed, without IV contrast, as per department protocol. Axial, sagittal and coronal reconstructions were obtained. One or more of the following dose reduction techniques were used: Automated exposure control, adjustment of the mA and/or kV according to the patient size, and/or iterative reconstruction. Unless otherwise specified, incidental findings do not require dedicated imaging follow-up. COMPARISON: No prior exam. FINDINGS: The lack of intravenous contrast limits the sensitivity of this exam for evaluation of solid visceral organs, vascular structures, and retroperitoneum. Chest: LOWER NECK/CHEST WALL: Visualized thyroid gland and soft tissues are normal. LUNGS AND AIRWAYS: Airways are clear. No evidence of airspace or interstitial process, with mild platelike atelectatic changes noted dependently.. No nodules. PLEURA: No pleural effusion. No pneumothorax. Hemidiaphragms are normally positioned. MEDIASTINUM AND LYMPH NODES: No mediastinal mass or fluid collection. Small calcified right hilar lymph nodes, may suggest sequelae of remote granulomatous infection. Subcentimeter epicardial lymph nodes, indeterminate. Trace pericardial effusion. THORACIC AORTA: Normal caliber and configuration. PULMONARY ARTERIES: Normal caliber. HEART: Unremarkable. Abdomen/Pelvis LIVER: Innumerable hypoattenuating masses/nodules throughout the liver, largest in the subcapsular left lobe anteriorly measuring 4.1 cm. GALLBLADDER/BILE DUCTS: Status post cholecystectomy. No evidence of intrahepatic bile ductal dilation. PANCREAS: No mass, ductal dilation, or geovanni-pancreatic fluid. SPLEEN: Normal size. No focal lesion. ADRENALS: Nonnodular bilateral diffuse thickening more pronounced on the left KIDNEYS AND URETERS: Normal size and contour. No hydronephrosis. GASTROINTESTINAL TRACT: Stomach is non-dilated. Small bowel has normal course and caliber. No colonic wall thickening or pericolonic inflammatory changes. Mild distal colonic diverticulosis without evidence of acute diverticulitis. PERITONEUM: No free fluid. LYMPH NODES: No lymphadenopathy. ABDOMINAL AORTA AND OTHER VESSELS: Normal caliber aorta and IVC. URINARY BLADDER: Normal contour. REPRODUCTIVE ORGANS: No pathologic process. MUSCULOSKELETAL: Rounded lytic lesion along the anterior margin of the right iliac crest measuring 1.2 cm. Small subtle lytic lesion in the subchondral space along the anterior right acetabulum measuring 6 mm. Questionable lucent lesion within the left pubic bone measuring 11 mm. Numerous other lucent lesions throughout the thoracic and lumbar spine, largest within the body of L5 measuring 12 mm. ADDITIONAL FINDINGS: None IMPRESSION: No acute findings in the chest. Innumerable masses/nodules throughout the liver concerning for metastatic disease. Numerous small lytic lesions throughout the thoracic and lumbar spine and pelvic bones as above, also raises concern for osseous metastatic disease. Other incidental findings as above. EXAMINATION: ONE VIEW CHEST XR CLINICAL INDICATION: Female, 69 years old.,COUGH TECHNIQUE: Frontal chest projection is submitted. Examination is limited by patient positioning and technique. COMPARISON: No prior exam. FINDINGS: The lungs are well inflated and clear apart from thickening or atelectasis along the right minor fissure. No pneumothorax or sizable effusion. The heart is normal in size. Mediastinal contours are unremarkable. IMPRESSION: No acute intrathoracic abnormalities. Conclusions/Impression: Stage II RENALDO in the setting of hypotension complicated by rare ibuprofen -No NSAIDs -Continue IVF with 1/2NS Hypomagnesemia -Replete as ordered -Start Slo-Mag HTN -Restart antihypertensives as indicated Elevated AST/ ALT likely due to malignancy/ mets -Liver biopsy pending Hypoalbuminemia -Consider protein supplementation -Encourage nutrition Anemia in chronic illness -Monitor H&H Hypercalcemia in the setting of malignancy/ mets Hypophosphatemia -Continue IVF -Encourage nutrition -Pamidronate X1 on 12-07-24 Cigarette Smoker -Recommend cessation
[2024-12-09] MEDS: MAGNESIUM CHLORIDE 64 MG TAB PO SCH (08:13)
[2024-12-09 08:44] LABS: Anion Gap 7.9 mEq/L (5.0-15.0); Potassium 3.9 mEq/L (3.5-5.1)
--- NOTE | 2024-12-09 11:37 | P.PN ---
Nephrology note (S) Pt cites some MAHMOOD, dizziness, some abd soreness at site of liver biopsy, remains on IVF, renal function tests discussed Vitals, medications, blood work and imaging reviewed in the chart General: NAD HEENT: Atraumatic, sclera anicteric, not needing O2 Neck: Supple Respiratory: Clear to auscultation bilaterally, Normal air movement Cardiovascular: No edema, Regular rate/rhythm mostly Gastrointestinal: Non-distended, No guarding Musculoskeletal: No contractures Integumentary: No rashes Neuro: Awake, alert, conversive Laboratory Data (last 24 hrs) Reviewed in the EMR Conclusions/Impression: Stage 1 RENALDO on admission, multifactorial -Cr level downward trending/normalizing, ok to cont gentle hydration for now. UA on admission unremarkable. Pt s/p dose of IV Pamidronate 48h ago. 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
[2024-12-09] MEDS: DOCUSATE NA 100 MG CAP PO PRN (20:52)
[2024-12-10 06:54] LABS: Anion Gap 6.9 mEq/L (5.0-15.0); Potassium 3.9 mEq/L (3.5-5.1)
[2024-12-10] MEDS: MAGNESIUM CHLORIDE 64 MG TAB PO SCH (09:21)
[2024-12-10] MEDS: ONDANSETRON 4 MG (ODT) TAB PO PRN (21:07)
[2024-12-11 10:15] VITALS: O2SAT 98
--- NOTE | 2024-12-12 06:25 | P.PN ---
Subjective Date of Service: 12/06/24 Patient is clinically feeling better. Blood pressure is improved. CT scan with malignancy. Patient with unknown etiology. CT-guided biopsy pending. Patient also complained of headache and will do MRI of the brain. Oncology consulted as well. Review of Systems 10-point ROS is otherwise unremarkable Physical Examination - Vital Signs Temperature: 97.9 F Blood Pressure: 133/72 Pulse: 69 Respirations: 16 Pulse Ox (%): 100 - Physical Exam General: Alert, In no apparent distress, Oriented x3 Respiratory: Clear to auscultation bilaterally, Normal air movement Cardiovascular: Regular rate/rhythm, Normal S1 S2, No murmurs Gastrointestinal: Normal bowel sounds, Soft and benign, Non-distended, No tenderness Musculoskeletal: No clubbing, No swelling, No tenderness Neurological: Sensation intact, Cranial nerves 3-12 intact - Studies Medications List Reviewed: Yes Assessment & Plan - Problems (Diagnosis) (1) Metastasis to liver with unknown primary site Current Visit: Yes Status: Acute (2) Metastasis to bone of unknown primary Current Visit: Yes Status: Acute (3) Hidradenitis suppurativa Current Visit: No Status: Acute (4) History of depression Current Visit: No Status: Acute (5) History of hypertension Current Visit: No Status: Acute (6) Weight loss Current Visit: Yes Status: Acute - Plan Plan: 1. Patient with metastatic disease to the bone and liver from unknown primary; liver biopsy pending; MRI pending. 2. Headache; unknown etiology- MRI pending 3. Weight loss; workup pending. Most likely metastatic disease of unknown primary. Biopsy pending 4. Gi and DVT prophylaxis Discharge Plan: Home Plan to discharge in: Greater than 2 days - Advance Directives Does patient have a Living Will: No Does patient have a Durable POA for Healthcare: No - Code Status/Comfort Care Code Status Assessed: Yes Code Status: Full Code Physician Review: Patient Assessed, Agree with Above Assessment and Plan Critical Care: No Time Spent Managing PTS Care (In Minutes): 35
--- NOTE | 2024-12-12 06:30 | P.PN ---
Date of Service: 12/08/24 Subjective MRI showed metastatic lesions; will need to follow up with Radiation Oncology as well as Oncology; biopsy is pending. Physical Examination - Vital Signs Reviewed - Physical Exam General: Alert, In no apparent distress, Oriented x3 Respiratory: Clear to auscultation bilaterally, Normal air movement Cardiovascular: Regular rate/rhythm, Normal S1 S2, No murmurs Gastrointestinal: Normal bowel sounds, Soft and benign, Non-distended, No tenderness Musculoskeletal: No clubbing, No swelling, No tenderness Neurological: no focal deficits Assessment & Plan - Problems (Diagnosis) (1) Metastasis to liver with unknown primary site Current Visit: Yes Status: Acute (2) Metastasis to bone of unknown primary Current Visit: Yes Status: Acute (3) Hidradenitis suppurativa Current Visit: No Status: Acute (4) History of depression Current Visit: No Status: Acute (5) History of hypertension Current Visit: No Status: Acute (6) Weight loss Current Visit: Yes Status: Acute - Plan Continue with plan of care as mentioned below: 1. Patient with metastatic disease to the bone and liver from unknown primary; liver biopsy pending; MRI With metastatic lesions. 2. Headache; most likely related to metastatic lesions from unknown primary; 3. Weight loss; workup pending. Most likely metastatic disease of unknown primary. Biopsy pending 4. Gi and DVT prophylaxis Discharge Plan: Home Plan to discharge in: Greater than 2 days - Advance Directives Does patient have a Living Will: No Does patient have a Durable POA for Healthcare: No - Code Status/Comfort Care Code Status Assessed: Yes Code Status: Full Code Physician Review: Patient Assessed, Agree with Above Assessment and Plan Critical Care: No Time Spent Managing PTS Care (In Minutes): 30
--- NOTE | 2024-12-12 06:31 | P.PN ---
Date of Service: 12/10/24 Subjective patient still feeling really weak. Clinical symptoms overall are better. Blood pressure is stable as well. Biopsy results are pending. Will review in a.m.. Physical Examination - Vital Signs Reviewed - Physical Exam General: Alert, In no apparent distress, Oriented x3 Respiratory: Clear to auscultation bilaterally, Normal air movement Cardiovascular: Regular rate/rhythm, Normal S1 S2, No murmurs Gastrointestinal: Normal bowel sounds, Soft and benign, Non-distended, No tenderness Musculoskeletal: No clubbing, No swelling, No tenderness Neurological: no focal deficits Assessment & Plan - Problems (Diagnosis) (1) Metastasis to liver with unknown primary site Current Visit: Yes Status: Acute (2) Metastasis to bone of unknown primary Current Visit: Yes Status: Acute (3) Hidradenitis suppurativa Current Visit: No Status: Acute (4) History of depression Current Visit: No Status: Acute (5) History of hypertension Current Visit: No Status: Acute (6) Weight loss Current Visit: Yes Status: Acute - Plan Continue with plan of care as mentioned below: 1. Patient with metastatic disease to the bone and liver from unknown primary; liver biopsy pending; MRI With metastatic lesions. 2. Headache; most likely related to metastatic lesions from unknown primary; 3. Weight loss; workup pending. Most likely metastatic disease of unknown primary. Biopsy pending 4. Gi and DVT prophylaxis Discharge Plan: Home Plan to discharge in: Greater than 2 days - Advance Directives Does patient have a Living Will: No Does patient have a Durable POA for Healthcare: No - Code Status/Comfort Care Code Status Assessed: Yes Code Status: Full Code Physician Review: Patient Assessed, Agree with Above Assessment and Plan Critical Care: No Time Spent Managing PTS Care (In Minutes): 30
--- NOTE | 2024-12-12 06:32 | P.PN ---
Date of Service: 12/09/24 Subjective Patient is clinically doing well. Patient denies any new complaints. Still having a headache and still feeling really weak. Family visited and spoke with them regarding her current treatment plan and prognosis. Physical Examination - Vital Signs Reviewed - Physical Exam General: Alert, In no apparent distress, Oriented x3 Respiratory: Clear to auscultation bilaterally, Normal air movement Cardiovascular: Regular rate/rhythm, Normal S1 S2, No murmurs Gastrointestinal: Normal bowel sounds, Soft and benign, Non-distended, No tenderness Musculoskeletal: No clubbing, No swelling, No tenderness Neurological: no focal deficits Assessment & Plan - Problems (Diagnosis) (1) Metastasis to liver with unknown primary site Current Visit: Yes Status: Acute (2) Metastasis to bone of unknown primary Current Visit: Yes Status: Acute (3) Hidradenitis suppurativa Current Visit: No Status: Acute (4) History of depression Current Visit: No Status: Acute (5) History of hypertension Current Visit: No Status: Acute (6) Weight loss Current Visit: Yes Status: Acute - Plan Continue with plan of care as mentioned below: 1. Patient with metastatic disease to the bone and liver from unknown primary; liver biopsy path pending; MRI With metastatic lesions. 2. Headache; most likely related to metastatic lesions from unknown primary; Will need follow-up with Oncology and Radiation Oncology. 3. Weight loss; workup pending. Most likely metastatic disease of unknown primary. Biopsy pending 4. Gi and DVT prophylaxis Discharge Plan: Home Plan to discharge in: Greater than 2 days - Advance Directives Does patient have a Living Will: No Does patient have a Durable POA for Healthcare: No - Code Status/Comfort Care Code Status Assessed: Yes Code Status: Full Code Physician Review: Patient Assessed, Agree with Above Assessment and Plan Critical Care: No Time Spent Managing PTS Care (In Minutes): 30
--- NOTE | 2024-12-12 06:33 | P.PN ---
Date of Service: 12/11/24 Subjective Plan was to discharge patient home today; she still feeling really weak at times. Encourage patient to get out of bed and ambulate. She did fairly well on ambulation. Patient to follow-up with oncology and radiation oncology. Prognosis is poor. Physical Examination - Vital Signs Reviewed - Physical Exam General: Alert, In no apparent distress, Oriented x3 Respiratory: Clear to auscultation bilaterally, Normal air movement Cardiovascular: Regular rate/rhythm, Normal S1 S2, No murmurs Gastrointestinal: Normal bowel sounds, Soft and benign, Non-distended, No tenderness Musculoskeletal: No clubbing, No swelling, No tenderness Neurological: no focal deficits Assessment & Plan - Problems (Diagnosis) (1) Metastasis to liver with unknown primary site Current Visit: Yes Status: Acute (2) Metastasis to bone of unknown primary Current Visit: Yes Status: Acute (3) Hidradenitis suppurativa Current Visit: No Status: Acute (4) History of depression Current Visit: No Status: Acute (5) History of hypertension Current Visit: No Status: Acute (6) Weight loss Current Visit: Yes Status: Acute - Plan Continue with plan of care as mentioned below: 1. Patient with metastatic disease to the bone and liver from unknown primary; liver biopsy path pending; MRI With metastatic lesions. 2. Headache; most likely related to metastatic lesions from unknown primary; Will need follow-up with Oncology and Radiation Oncology. 3. Weight loss; workup pending. Most likely metastatic disease of unknown primary. Biopsy pending 4. Gi and DVT prophylaxis Discharge Plan: Home Plan to discharge in: Greater than 2 days - Advance Directives Does patient have a Living Will: No Does patient have a Durable POA for Healthcare: No - Code Status/Comfort Care Code Status Assessed: Yes Code Status: Full Code Physician Review: Patient Assessed, Agree with Above Assessment and Plan Critical Care: No Time Spent Managing PTS Care (In Minutes): 30
[2024-12-12 08:58] VITALS: BP 128/70; TEMP 98.2
--- NOTE | 2024-12-12 20:55 | P.PN ---
Date of Service: 12/12/24 Vital Signs Temp Pulse Resp BP Pulse Ox 98.2 F 74 16 128/70 92 12/12/24 08:00 12/12/24 08:00 12/12/24 10:16 12/12/24 08:00 12/12/24 08:00 Assessment/ Plan: Nephrology No dyspnea No chest pain No acute events overnight Feeling better this morning Vitals, medications, blood work and imaging reviewed in the chart General: In no apparent distress, Oriented x3, Cooperative HEENT: Atraumatic Neck: Supple Respiratory: Clear to auscultation bilaterally, Normal air movement Cardiovascular: No edema, Regular rate/rhythm Gastrointestinal: Soft and benign, Non-distended, No guarding Musculoskeletal: No clubbing, No contractures Integumentary: No rashes, No cyanosis Laboratory Data (last 24 hrs) 12/05/24 12/05/24 07:02 07:02 WBC 6.60 Hgb 12.9 Hct 39.7 Plt Count 336 Sodium 136 Potassium 3.5 BUN 24 H Creatinine 1.83 H Glucose 112 H Total Bilirubin 1.0 AST 174 H ALT 102 H Alkaline Phosphatase 241 H Imagings Data: EXAM: CT CHEST, ABDOMEN AND PELVIS WITHOUT CONTRAST CLINICAL INDICATION: Female, 69 years old. [facility] MAIN SOB, ABd pain TECHNIQUE: CT chest, abdomen and pelvis was performed, without IV contrast, as per department protocol. Axial, sagittal and coronal reconstructions were obtained. One or more of the following dose reduction techniques were used: Automated exposure control, adjustment of the mA and/or kV according to the patient size, and/or iterative reconstruction. Unless otherwise specified, incidental findings do not require dedicated imaging follow-up. COMPARISON: No prior exam. FINDINGS: The lack of intravenous contrast limits the sensitivity of this exam for evaluation of solid visceral organs, vascular structures, and retroperitoneum. Chest: LOWER NECK/CHEST WALL: Visualized thyroid gland and soft tissues are normal. LUNGS AND AIRWAYS: Airways are clear. No evidence of airspace or interstitial process, with mild platelike atelectatic changes noted dependently.. No nodules. PLEURA: No pleural effusion. No pneumothorax. Hemidiaphragms are normally positioned. MEDIASTINUM AND LYMPH NODES: No mediastinal mass or fluid collection. Small calcified right hilar lymph nodes, may suggest sequelae of remote granulomatous infection. Subcentimeter epicardial lymph nodes, indeterminate. Trace pericardial effusion. THORACIC AORTA: Normal caliber and configuration. PULMONARY ARTERIES: Normal caliber. HEART: Unremarkable. Abdomen/Pelvis LIVER: Innumerable hypoattenuating masses/nodules throughout the liver, largest in the subcapsular left lobe anteriorly measuring 4.1 cm. GALLBLADDER/BILE DUCTS: Status post cholecystectomy. No evidence of intrahepatic bile ductal dilation. PANCREAS: No mass, ductal dilation, or geovanni-pancreatic fluid. SPLEEN: Normal size. No focal lesion. ADRENALS: Nonnodular bilateral diffuse thickening more pronounced on the left KIDNEYS AND URETERS: Normal size and contour. No hydronephrosis. GASTROINTESTINAL TRACT: Stomach is non-dilated. Small bowel has normal course and caliber. No colonic wall thickening or pericolonic inflammatory changes. Mild distal colonic diverticulosis without evidence of acute diverticulitis. PERITONEUM: No free fluid. LYMPH NODES: No lymphadenopathy. ABDOMINAL AORTA AND OTHER VESSELS: Normal caliber aorta and IVC. URINARY BLADDER: Normal contour. REPRODUCTIVE ORGANS: No pathologic process. MUSCULOSKELETAL: Rounded lytic lesion along the anterior margin of the right iliac crest measuring 1.2 cm. Small subtle lytic lesion in the subchondral space along the anterior right acetabulum measuring 6 mm. Questionable lucent lesion within the left pubic bone measuring 11 mm. Numerous other lucent lesions throughout the thoracic and lumbar spine, largest within the body of L5 measuring 12 mm. ADDITIONAL FINDINGS: None IMPRESSION: No acute findings in the chest. Innumerable masses/nodules throughout the liver concerning for metastatic disease. Numerous small lytic lesions throughout the thoracic and lumbar spine and pelvic bones as above, also raises concern for osseous metastatic disease. Other incidental findings as above. EXAMINATION: ONE VIEW CHEST XR CLINICAL INDICATION: Female, 69 years old.,COUGH TECHNIQUE: Frontal chest projection is submitted. Examination is limited by patient positioning and technique. COMPARISON: No prior exam. FINDINGS: The lungs are well inflated and clear apart from thickening or atelectasis along the right minor fissure. No pneumothorax or sizable effusion. The heart is normal in size. Mediastinal contours are unremarkable. IMPRESSION: No acute intrathoracic abnormalities. Conclusions/Impression: Stage II RENALDO in the setting of hypotension complicated by rare ibuprofen -No NSAIDs Hypomagnesemia -Replete as ordered -Continue Slo-Mag HTN -Hold antihypertensives Elevated AST/ ALT likely due to malignancy/ mets -Liver biopsy reviewed Hypoalbuminemia -Consider protein supplementation -Encourage nutrition Anemia in chronic illness -Monitor H&H Hypercalcemia in the setting of malignancy/ mets Hypophosphatemia -Encourage nutrition -Pamidronate X1 on 12-07-24 Cigarette Smoker -Recommend cessation Hospitalist note reviewed
== END 2024-12-12 10:55 | disposition home or self-care (01) | DRG 436 ==
LOC: ER 06:11 → ERHOLD 10:15 → 2ND 11:48 → OBSVTOIN 12-07 12:38
PROVIDERS: ADMIT Hospitalist; ATTEND Hospitalist
PROC: 0FB23ZX Excision of Left Lobe Liver, Percutaneous Approach, Diagnostic (ICD-10-PCS; principal; 2024-12-07)
DX: C78.7 Secondary malignant neoplasm of liver and intrahepatic bile duct (principal); C79.51 Secondary malignant neoplasm of bone; N17.9 Acute kidney failure, unspecified; Z68.41 Body mass index [BMI] 40.0-44.9, adult; I10 Essential (primary) hypertension; E11.9 Type 2 diabetes mellitus without complications; I95.9 Hypotension, unspecified; K21.9 Gastro-esophageal reflux disease without esophagitis; C80.1 Malignant (primary) neoplasm, unspecified; F32.A Depression, unspecified; L73.2 Hidradenitis suppurativa; D63.8 Anemia in other chronic diseases classified elsewhere; E83.42 Hypomagnesemia; E88.09 Other disorders of plasma-protein metabolism, not elsewhere classified; E83.52 Hypercalcemia; E83.39 Other disorders of phosphorus metabolism; F17.210 Nicotine dependence, cigarettes, uncomplicated; R63.4 Abnormal weight loss; R51.9 Headache, unspecified; R79.89 Other specified abnormal findings of blood chemistry; Z90.49 Acquired absence of other specified parts of digestive tract; Z79.899 Other long term (current) drug therapy
CPT/HCPCS: 36415; 47000; 70553; 71045; 71250; 74176; 80048; 80053; 80061; 80076; 81001; 82550; 83519; 83520; 83735; 83880; 84100; 84165; 84439; 84443; 84484; 84550; 85025; 85610; 85730; 86335; 88307; 93005; 93306; 96360; 96361; 97161; 99285; A9577; G0378; J2250; J2310; J2405; J2430; J3010; J3475; J7030; J7040; J7050; J8597; Q0162

== ENCOUNTER 2024-12-23 09:12 | Emergency (ER) | payer OTHER ==
--- OUTSIDE RECORDS SUMMARY | 2024-12-23 09:14 | XMS REPORT | Continuity of Care Document ---
Author Name Unknown Address [address] [facility] [address] [place] [address] [facility] [place] Address [address] [facility] [place] [address] Care Team Providers Care Vendette Name Role Phone Pcp, Patient Does Not Have A Primary Care Physic paloma [email or web address] Attending Clinician Unavaila ble TRITSKATHY NAPIER Attending Clinician Unavaila ble TRITSKATHY NAPIER Attending Clinician Unavaila ble [email or web address] Admitting Clinician Unavaila ble Payers Payer Name Policy Type Policy Number Effective Date Expirati on Date Source MEDICARE PART A \T\ B [id number] 2019 00:00:00 Problems Condition Name Condition Details Condition Category Status Onset Date Resolution Date Last Treatment Date Treating Clinician Comments Source Perianal abscess Perianal abscess Disease Active 01-31 00:00: 00 [facility] Hidradenit is suppurativ a Hidradenit is suppurativ a Disease Active 01-31 00:00: 00 [facility] Candidal intertrigo Candidal intertrigo Disease Active 01-31 00:00: 00 [facility] Morbid obesity with body mass index (BMI) of 40.0 or higher Morbid obesity with body mass index (BMI) of 40.0 or higher Disease Active 01-31 00:00: 00 [facility] Benign essential hypertensi on, with delivery, with current complicati on Benign essential hypertensi on, with delivery, with current complicati on Disease Active 01-31 00:00: 00 [facility] Social History Social Habit Start Date Stop Date Quantity Comments Source History of tobacco use Cigarette Smoker [facility] Alcohol intake 2022-02-07 00:00:00 2022-02-07 00:00:00 Ex-drinker (finding) [facility] Tobacco use and exposure 2022-01-31 00:00:00 2022-01-31 00:00:00 Never used [facility] Sex Assigned At 1955 00:00:00 1955 00:00:00 [facility] Smoking Status Start Date Stop Date Source Former smoker 2022-01-31 00:00:00 2022-01-31 00:00:00 [facility] Medications Ordered Medication Name Filled Medication Name Start Date Stop Date Current Medication? Ordering Clinician Indication Dosage Frequency Signature (SIG) Comments Components Source losartan-hy drochloroth iazide 50-12.5 mg per tablet 01-31 10:00: 27 Yes losartan 50 mg-hydroch lorothiazi de 12.5 mg tablet TAKE 1 TABLET BY MOUTH EVERY DAY [facility] Encounters Start Date/Time End Date/Time Encounter Type Admission Type Attending Clinicians Care Facility Care Department Encounter ID Source 2023-07-18 00:00:00 2023-07-18 00:00:00 Outpatient [email or web address] [facility] [id number] [facility] 2022-02-28 13:45:00 2022-02-28 13:45:00 Outpatient KATHY NEWMAN [facility]ERY[facility] [id number] [facility] 2022-02-27 00:00:00 2022-02-27 00:00:00 Telephone Kathy Sinha [facility] [id number] [facility] 2022-02-07 11:15:00 2022-02-07 11:57:45 Outpatient R ERNESTINE JOSE MAUBREY KATHY SINHA [facility] [id number] [facility] 2022-02-07 11:15:00 2022-02-07 11:57:45 [facility] [id number] [facility] 2022-02-07 11:15:00 2022-02-07 11:15:00 Outpatient R KATHY SINHA [facility] [id number] [facility] 2022-01-31 09:00:00 2022-01-31 10:21:28 Office Visit Kathy Sinha [facility] [id number] [facility] 2022-01-31 09:00:00 2022-01-31 10:21:28 Outpatient R KATHY SINHA [facility] [id number] [facility]
[2024-12-23] MEDS ORDERED: NA CHLORIDE 0.9% 500 ML ONE (09:50)
[2024-12-23] MEDS ORDERED: PROMETHAZINE INJ 25 MG/ML AMP ONE (09:50)
--- NOTE | 2024-12-23 09:57 | RAD REPORT ---
EXAMINATION: ONE VIEW CHEST XR CLINICAL INDICATION: dizziness TECHNIQUE: Frontal chest projection is submitted. Examination is limited by patient positioning and t echnique. COMPARISON: 12/05/2024 FINDINGS: Patchy opacity left base may represent atelectasis or developing pneumonia. The lungs are otherwise c lear. The heart is upper limit of normal in size. No displaced fractures identified.
[2024-12-23 10:02] LABS: PT Prothrombin Time 15.4 SECONDS (10-13.0); PTT, Activated Partial Thromb 38.3 SECONDS (27.2-37.4); Protime INR 1.37
[2024-12-23 10:08] LABS: Absolute Basophils 0.1 K/uL (0-0.5); Absolute Lymphocytes (CBC) 1.1 K/uL (0.7-4.9); Absolute Monocytes 0.5 K/uL (0.1-1.3); Absolute Neutrophil 6.2 K/uL (1.8-8.0); Basophils % 1.1 % (0-1.3); Eosinophils % 0.5 % (0-4.4); Hematocrit 38.6 % (36.0-45.0); Lymphocytes % 14.4 % (15.3-44.8); MCH 27.5 pg (27.0-35.0); MCHC 33.6 g/dL (32.0-36.0); MCV 81.8 fL (80-100); MPV 9.1 fL (7.6-11.3); Monocytes % 5.9 % (3.3-12.3); Neutrophils % 78.1 % (41.7-73.7); Nucleated RBC Absolute Count 0.1 (0-0); Nucleated Red Blood Cells % 1.2 % (0-0); Platelets 279 thou/uL (152-406); RBC Red Blood Cell Count 4.72 M/uL (3.86-4.86); Red Cell Distribution Width 18.9 % (12.1-15.2)
[2024-12-23 10:17] LABS: Albumin 2.1 g/dL (3.4-5.0); Albumin/Globulin Ratio 0.3 (1.1-1.8); Anion Gap 10.9 mEq/L (5.0-15.0); Bilirubin Direct 2.1 mg/dL (0-0.2); Bilirubin Indirect, Calculated 0.9 mg/dL (0.2-0.8); Globulin 6.6 g/dL (2.3-3.5); Magnesium 2.2 mg/dL (1.6-2.4); Potassium 3.9 mEq/L (3.5-5.1); Protein, Total 8.7 g/dL (6.4-8.2); Troponin High Sensitivity 8.8 pg/mL (<58.9)
--- NOTE | 2024-12-23 11:05 | RAD REPORT ---
EXAM: CT brain without contrast HISTORY: dizziness, reports brain metastases COMPARISON: 12/06/2024 MRI TECHNIQUE: Multiple contiguous axial images were obtained and a CT of the brain without contrast. Sag ittal and coronal reformats were performed. One or more of the following dose reduction techniques were used: Automated exposure control, adjust ment of the mA and/or kV according to patient size, and/or iterative reconstruction. FINDINGS: No evidence of hydrocephalus, intracranial hemorrhage, or extra-axial fluid collection. Patient's known brain lesions not well seen on CT. No evidence of midline shift or areas of brain ed gray. The calvarium is intact. The visualized paranasal sinuses and mastoid air cells are essentially clear . IMPRESSION: No evidence of acute intracranial abnormality. The patient has known brain lesions which are not well seen by CT.
--- NOTE | 2024-12-23 11:10 | RAD REPORT ---
EXAM: CT CHEST, ABDOMEN AND PELVIS WITH CONTRAST CLINICAL INDICATION: dizziness TECHNIQUE: CT chest, abdomen and pelvis was performed, following the administration of contrast, as p er department protocol. Axial, sagittal and coronal reconstructions were obtained. One or more of the following dose reduction techniques were used: Automated exposure control, adjustment of the mA a nd/or kV according to patient size, and/or iterative reconstruction. Unless otherwise specified, incidental findings do not require dedicated imaging follow-up. COMPARISON: 12/07/2024 FINDINGS: LUNGS: Mild linear atelectasis is seen in the right lung base. No pulmonary nodule, mass or infiltrat e seen. PLEURA: No pleural effusion. No pneumothorax. MEDIASTINUM AND LYMPH NODES: No mediastinal mass or fluid collection. Normal size mediastinal, hilar, and axillary lymph nodes. OSSEOUS STRUCTURES AND CHEST WALL: Intact. LIVER: Innumerable masses seen throughout the liver parenchyma compatible with diffuse hepatic metast atic disease. Cholecystectomy clips. PANCREAS: No mass, ductal dilation, or geovanni-pancreatic fluid. SPLEEN: Normal size. No focal lesion. ADRENALS: Mild thickening left adrenal gland. Right adrenal gland is within normal limits. KIDNEYS: Normal size and contour. No hydronephrosis. URINARY BLADDER: Normal contour. GASTROINTESTINAL TRACT: Mild free fluid right aspect of the abdomen. No bowel obstruction, free air o r abscess. APPENDIX: Appendix not visualized, but no inflammatory changes in region of appendix. LYMPH NODES: Prominent left inguinal lymph node is seen measuring 22 mm. MUSCULOSKELETAL: Diffuse sclerotic appearance to the visualized osseous structures. IMPRESSION: Innumerable hepatic metastatic lesions are present. Small amount of free fluid right abdomen. No acute findings seen.
--- NOTE | 2024-12-23 13:13 | EDPHYS ---
Physician Documentation [facility] Name: Chris Mahan Age: 69 yrs Sex: Female : 1955 Arrival Date: 12/23/2024 Time: 09:12 Bed 6 Private MD: ED Physician Landry Kwong HPI: 12/23 09:47 This 69 yrs old Black Female presents to ER via EMS with complaints of General Weakness.rn 09:47 Patient reports generalized weakness, dizziness, nausea. Patient reports this has been rn happening for couple of weeks. Was diagnosed with "cancer" last week. Patient told has unknown cancer of unknown origin but seems to have metastasized to bone and brain. Patient already taking Zofran. Patient was at cancer center today to initiate further workup and had near syncopal episode. Reports mild headache, nausea, dizziness and generalized weakness. No chest pain or shortness of breath. Mild right flank pain. No urinary symptoms.. Onset: The symptoms/episode began/occurred just prior to arrival. Severity of symptoms: At their worst the symptoms were moderate in the emergency department the symptoms are unchanged. The patient has experienced similar episodes in the past. Historical: - Allergies: 09:29 No Known Allergies; ph - PMHx: 09:29 depressive disorder; HS; Hypertensive disorder; ph 10:02 Brain lesions-metastasis; Metastasis to bone; Unknown Cancer; aa5 - PSHx: 09:29 Cholecystectomy; drainage from buttocks; ph - Immunization history:: Adult Immunizations unknown. - Infectious Disease History:: Denies. - Social history:: Smoking status: Patient reports the use of cigarette tobacco products, denies chronic smoking, but will smoke occasionally, Patient/guardian denies using alcohol. - Family history:: not pertinent. - Hospitalizations: : No recent hospitalization is reported. ROS: 09:47 Constitutional: Negative for fever, chills ENT: Negative for injury, pain, and internet manager, Neck: Negative for injury, pain, and swelling, Cardiovascular: Negative for chest pain, palpitations, and edema, Respiratory: Negative for shortness of breath, cough, wheezing, and pleuritic chest pain, Abdomen/GI: Positive for nausea, negative for abdominal pain MS/Extremity: Negative for injury and deformity, Skin: Negative for injury, rash, and discoloration, Neuro: Positive for headache and generalized weakness Exam: 09:47 Constitutional: This is a well developed, well nourished patient who is awake, alert, rn and in no acute distress. Head/Face: Normocephalic, atraumatic. Eyes: Pupils equal round and reactive to light, extra-ocular motions intact. ENT: Dry mucous membranes, no stridor Cardiovascular: Regular rate and rhythm. No pulse deficits. Respiratory: Speaking full sentences, unlabored. No increased work of breathing, no retractions or nasal flaring. Abdomen/GI: Soft, non-tender Neuro: Awake and alert, GCS 15, oriented to person, place, time, and situation. Cranial nerves II-XII grossly intact. Motor strength 5/5 in all extremities. Sensory grossly intact. 10:04 ECG was reviewed by the Attending Physician. rn Vital Signs: 09:24 BP 109 / 75; Pulse 97; Resp 20; Temp 97.4; Pulse Ox 96% on R/A; Weight 104.33 kg; ph Height 5 ft. 4 in. ; 10:52 BP 104 / 76; Pulse 85; Resp 20; Pulse Ox 95% on R/A; ph 13:00 BP 105 / 72; Pulse 84; Resp 18; Pulse Ox 97% on R/A; ph 14:30 BP 108 / 73; Pulse 85; Resp 16 S; Pulse Ox 99% on R/A; aa5 09:24 Body Mass Index 39.48 (104.33 kg, 162.56 cm) ph MDM: 09:20 Medical Screening Exam initiated rn 13:01 Differential Diagnosis cancer, worsening cancer, dehydration, brain metastases. Data rn reviewed: vital signs, nurses notes, lab test result(s), radiologic studies, CT scan, and as a result, I will admit patient. Consideration of Admission/Observation Patient was admitted/placed on observation. Escalation of care including admission/observation considered. Management of patient was discussed with the following: Sports Development Officer: Case discussed with Dr. Marie, who requests transfer for brain metastases given vomiting and dizziness. I discussed with Dr. Marie that I believe patient can stay here as CT head does not show edema or midline shift or need for immediate surgical intervention, he still requests to transfer for neurosurgical evaluation and consultation. Transfer initiated. 13:11 Counseling: I had a detailed discussion with the patient and/or guardian regarding the rn historical points, exam findings, and any diagnostic results supporting the discharge/admit diagnosis, lab results, radiology results, the need to transfer to another facility, for higher level of care, [facility] does not immediately have the required specialist. Response to treatment: the patient's symptoms have mildly improved after treatment, and as a result, I will admit patient. 14:23 ED course: Discussed case with [facility] neurology and hospitalist, they accept rn patient for transfer.. ED course: Had discussion with neurosurgeon at [facility]. Told him I tried to admit here given no acute findings on CT imaging to indicate need for immediate surgery but our hospitalist requested transfer due to known brain metastases and headache/vomiting complaints with given concern of possible worsening lesions with edema. He agrees to evaluate patient when arrives. Does not anticipate any neurosurgical intervention.. 12/23 09:27 Order name: Basic Metabolic Panel; Complete Time: 11:05 12/23 09:27 Order name: CBC with Diff; Complete Time: 11:12/23 09:27 Order name: Hepatic Function; Complete Time: 11:12/23 09:27 Order name: Magnesium; Complete Time: 11:05 12/23 09:27 Order name: Protime (+inr); Complete Time: 10:12/23 09:27 Order name: Ptt, Activated; Complete Time: 10:12/23 09:27 Order name: Troponin High Sensitivity; Complete Time: 11:05 12/23 09:27 Order name: CT Head Brain wo Cont; Complete Time: 11:22 12/23 09:27 Order name: CT Chest, Abdomen, Pelvis - W/Contrast; Complete Time: 11:22 12/23 09:27 Order name: Chest Single View XRAY; Complete Time: 10:04 12/23 09:27 Order name: Cardiac monitoring; Complete Time: 09:46 12/23 09:27 Order name: EKG - Nurse/Tech; Complete Time: 09:39 12/23 09:27 Order name: IV Saline Lock; Complete Time: 09:47 12/23 09:27 Order name: Labs collected and sent; Complete Time: 09:47 12/23 09:27 Order name: O2 Per Protocol; Complete Time: 09:47 12/23 09:27 Order name: O2 Sat Monitoring; Complete Time: 09:47 rn EC:04 Rate is 93 beats/min. Rhythm is regular. QRS [place] is Normal. MT interval is normal. QRS rn interval is normal. QT interval is normal. No Q waves. T waves are Normal. No ST changes noted. Clinical impression: NSR w/ Non-specific ST/T Changes. Interpreted by me. Reviewed by me. Administered Medications: :59 Drug: NS 0.9% IV 500 ml 500 ml IV at 1 bolus once; to be given as a bolus over 30 aa5 minutes Volume: 500 ml; Route: IV; Rate: 1 bolus; Site: left antecubital; 10:30 Follow up: IV Status: Completed infusion; IV Intake: 500ml aa5 09:59 Not Given (Physician Discretion): [id number] mg IVP once aa5 09:59 Drug: Promethazine IVP 6.25 mg IVP once Route: IVP; Site: left antecubital; aa5 10:05 Follow up: Response: No adverse reaction aa5 13:23 Drug: Decadron - Dexamethasone IVP 10 mg IVP once Route: IVP; Site: left antecubital; aa5 13:30 Follow up: Response: No adverse reaction aa5 Disposition Summary: 12/23/24 13:12 Transfer Ordered Notes: Transfer Location: [facility] rn Reason: Higher level of care rn Condition: Stable rn Problem: an ongoing problem rn Symptoms: are unchanged rn Accepting Physician: (12/23/24 15:08) aa5 Diagnosis - Dizziness and giddiness rn - Vomiting, unspecified rn - Brain metastases rn Forms: - Medication Reconciliation Form rn - SBAR form rn Signatures: Dispatcher [employer] EDMS Landry Kwong MD MD rn Calderon, Audri RN RN aa5 Radha Mills RN RN Antonieta Hi Corrections: (The following items were deleted from the chart) 09: 09:28 Head Brain Wo Cont+CT.RAD.BRZ ordered. EDMS EDMS : 09:28 Chest Abdomen Pelvis W Con+CT.RAD.BRZ ordered. EDMS EDMS : 09:28 BASIC METABOLIC PANEL+C.LAB.BRZ ordered. EDMS EDMS : 09:28 CBC+H.LAB.BRZ ordered. EDMS EDMS : 09:28 HEPATIC FUNCTION+C.LAB.BRZ ordered. EDMS EDMS : 09:28 MAGNESIUM+C.LAB.BRZ ordered. EDMS EDMS : 09:28 PROTIME (+INR)+COAG.LAB.BRZ ordered. EDMS EDMS : 09:28 PTT, ACTIVATED+COAG.LAB.BRZ ordered. EDMS EDMS : 09:28 Troponin High Sensitivity+C.LAB.BRZ ordered. EDMS EDMS : 09:28 Urinalysis+U.LAB.BRZ ordered. EDMS EDMS : 09:28 Chest Single View+RAD.RAD.BRZ ordered. EDMS EDMS 13:12 13:12 Dr. belen glover 14:07 13:12 Dr. belen maldonado 14:29 13:01 Management of patient was discussed with the following: Sports Development Officer: Case rn discussed with Dr. Marie, who requests transfer for brain metastases given vomiting and dizziness. . rn 15:08 14:07 Dr.Sung maldonado aa5
--- NOTE | 2024-12-23 13:13 | ER ---
Nurse's Notes [facility] Name: Chris Mahan Age: 69 yrs Sex: Female : 1955 Arrival Date: 12/23/2024 Time: 09:12 Bed 6 Private MD: Diagnosis: Dizziness and giddiness;Vomiting, unspecified;Brain metastases Presentation: 12/23 09:24 Chief complaint: EMS states: Pt from cancer center, recently diagnosed, c/o dizziness ph and nausea that has been ongoing, felt like she may pass out today, did not fall, VSS, BGL 74, 4 mg Zofran given, 20 G to LAC. Coronavirus screen: Vaccine status: Patient reports being unvaccinated. Ebola Screen: No symptoms or risks identified at this time. Initial Sepsis Screen: Does the patient meet any 2 criteria? No. Patient's initial sepsis screen is negative. Does the patient have a suspected source of infection? No. Patient's initial sepsis screen is negative. Risk Assessment: Do you want to hurt yourself or someone else? Patient reports no desire to harm self or others. Onset of symptoms was December 23, 2024. 09:24 Method Of Arrival: EMS: [facility] ph 09:24 Acuity: NANCY 3 ph Triage Assessment: :29 General: Appears in no apparent distress. comfortable, well groomed, Behavior is calm, ph cooperative, appropriate for age. Neuro: Level of Consciousness is awake, alert, obeys commands, Oriented to person, place, time, situation. Neuro: Reports dizziness. Cardiovascular: Reports lightheadedness, nausea, shortness of breath, Capillary refill < 3 seconds in bilateral fingers Patient's skin is warm and dry. Respiratory: Reports shortness of breath Airway is patent Respiratory effort is even, unlabored. GI: Reports nausea. Derm: Skin is pink, warm \\T\\ dry. Historical: - Allergies: :29 No Known Allergies; ph - PMHx: :29 depressive disorder; HS; Hypertensive disorder; ph 10:02 Brain lesions-metastasis; Metastasis to bone; Unknown Cancer; aa5 - PSHx: 09:29 Cholecystectomy; drainage from buttocks; ph - Immunization history:: Adult Immunizations unknown. - Infectious Disease History:: Denies. - Social history:: Smoking status: Patient reports the use of cigarette tobacco products, denies chronic smoking, but will smoke occasionally, Patient/guardian denies using alcohol. - Family history:: not pertinent. - Hospitalizations: : No recent hospitalization is reported. Screenin:30 [facility] ED Fall Risk Assessment (Adult) History of falling in the last 3 months, ph including since admission No falls in past 3 months (0 pts) Confusion or Disorientation No (0 pts) Intoxicated or Sedated No (0 pts) Impaired Gait No (0 pts) Mobility Assist Device Used No (0 pt) Altered Elimination No (0 pt) Score/Fall Risk Level 0 - 2 = Low Risk Oriented to surroundings, Maintained a safe environment, Hourly rounding (assess needs \\T\\ fall precautionary measures) done, Used ambulatory aids as needed (educated on \\T\\ assisted with). Abuse screen: Denies threats or abuse. Denies injuries from another. Nutritional screening: No deficits noted. Tuberculosis screening: No symptoms or risk factors identified. Assessment: 09:31 General: SEE TRIAGE ASSESSMENT. ph 09:40 General: Appears comfortable, Behavior is calm, cooperative. Pain: Denies pain. Neuro: aa5 Level of Consciousness is awake, alert, obeys commands, Oriented to person, place, time, situation, Enamel Cracker are weak bilaterally Moves all extremities. Speech is normal, Facial symmetry appears normal, Reports generalized weakness . Cardiovascular: Heart tones S1 S2 present Patient's skin is warm and dry. Rhythm is regular. Respiratory: Airway is patent Respiratory effort is even, unlabored, Respiratory pattern is regular, symmetrical. GI: Abdomen is round Bowel sounds present X 4 quads. Abd is soft and non tender X 4 quads. Reports nausea, decreased appetite and nausea, reports intermittent bloating. : No signs and/or symptoms were reported regarding the genitourinary system. EENT: No signs and/or symptoms were reported regarding the EENT system. Derm: Skin is dry, Skin is normal, Skin temperature is warm. Musculoskeletal: Range of motion: intact in all extremities. 09:40 Reassessment: Pt states "they haven't found where the cancer is yet, I know I have aa5 lesions in my brain and it's in my bones". Pt reports cancer dx was made approximately 1 week ago.. 10:40 Reassessment: Pt currently in radiology. . aa5 11:30 Neuro: Level of Consciousness is awake, alert, obeys commands, Oriented to person, aa5 place, time, situation. Respiratory: Airway is patent Respiratory effort is even, unlabored, Respiratory pattern is regular, symmetrical. Derm: Skin is dry, Skin is normal, Skin temperature is warm. 12:00 Reassessment: Pt sleeping . aa5 13:00 Reassessment: Patient appears in no apparent distress at this time. Patient and/or ph family updated on plan of care and expected duration. Pain level reassessed. Patient is alert, oriented x 3, equal unlabored respirations, skin warm/dry/pink. 15:00 Neuro: Level of Consciousness is awake, alert, obeys commands, Oriented to person, aa5 place, time, situation. Respiratory: Airway is patent Respiratory effort is even, unlabored, Respiratory pattern is regular, symmetrical. Derm: Skin is dry, Skin is normal, Skin temperature is warm. Vital Signs: 09:24 BP 109 / 75; Pulse 97; Resp 20; Temp 97.4; Pulse Ox 96% on R/A; Weight 104.33 kg; ph Height 5 ft. 4 in. ; 10:52 BP 104 / 76; Pulse 85; Resp 20; Pulse Ox 95% on R/A; ph 13:00 BP 105 / 72; Pulse 84; Resp 18; Pulse Ox 97% on R/A; ph 14:30 BP 108 / 73; Pulse 85; Resp 16 S; Pulse Ox 99% on R/A; aa5 09:24 Body Mass Index 39.48 (104.33 kg, 162.56 cm) ph ED Course: 09:20 Patient arrived in ED. em1 09:20 Landry Kwong MD is Attending Physician. rn 09:29 Triage completed. ph 09:30 Arm band placed on Patient placed in an exam room, on a stretcher, on cardiac monitor technician, ph on pulse oximetry. 09:31 Patient has correct armband on for positive identification. Placed in gown. Bed in low ph position. Call light in reach. Side rails up X2. youth nutritional monitor on. Pulse ox on. NIBP on. Door closed. Noise minimized. Warm blanket given. Pillow given. 09:36 Eva Richards, AIDE is Primary Nurse. aa5 09:39 EKG done, by ED staff, reviewed by Landry Kwong MD. em1 09:40 Initial lab(s) drawn, by me, sent to lab. Maintain EMS IV. Dressing intact. Site clean aa5 \\T\\ dry. Gauge \\T\\ site: 20G to L AC. 09:48 Chest Single View XRAY In Process Unspecified. EDMS 10:52 CT Head Brain wo Cont In Process Unspecified. EDMS 10:53 CT Chest, Abdomen, Pelvis - W/Contrast In Process Unspecified. EDMS 12:48 initiated a transfer with Antonieta from the [facility]. eb 13:38 connected Siddharth New the neuro division merchandise manager for [facility] with Dr. Kwong for pt eb transfer consultation. 13:[address] Kent the hospitalist division merchandise manager for [facility] with Dr. Kwong for eb patient transfer consultation. 14:03 administrative approval given by Antonieta Weeks/ patient has been accepted to [facility] [address]/ [facility] has accepted the patient in transfer / report to be called to [phone]. 15:00 No provider procedures requiring assistance completed. Patient transferred, IV remains aa5 in place. Administered Medications: 09:59 Drug: NS 0.9% IV 500 ml 500 ml IV at 1 bolus once; to be given as a bolus over 30 aa5 minutes Volume: 500 ml; Route: IV; Rate: 1 bolus; Site: left antecubital; 10:30 Follow up: IV Status: Completed infusion; IV Intake: 500ml aa5 09:59 Not Given (Physician Discretion): [id number] mg IVP once aa5 09:59 Drug: Promethazine IVP 6.25 mg IVP once Route: IVP; Site: left antecubital; aa5 10:05 Follow up: Response: No adverse reaction aa5 13:23 Drug: Decadron - Dexamethasone IVP 10 mg IVP once Route: IVP; Site: left antecubital; aa5 13:30 Follow up: Response: No adverse reaction aa5 Medication: 09:31 VIS not applicable for this client. ph Intake: 10:30 IV: 500ml; Total: 500ml. aa5 Outcome: 13:12 ER care complete, transfer ordered by MD. glover 15:00 Transferred by ground EMS to [facility], [facility], Transfer form completed. aa5 X-rays sent w/ patient. 15:00 Condition: stable 15:00 Instructed on the need for transfer, Demonstrated understanding of instructions, 15:08 Patient left the ED. aa5 Signatures: Dispatcher [employer] EDMS Landry Kwong MD MD rn Martinez, Julio César 1 Eva Richards RN RN aa5 Radha Mills RN RN ph Botello, Elizabeth eb
[2024-12-23] MEDS ORDERED: dexAMETHasone 10 MG/ML VIAL ONE (13:19)
[2024-12-23 15:16] VITALS: TEMP 97.4
[2024-12-23 15:18] VITALS: BP 105/72; O2SAT 97
--- NOTE | 2024-12-26 11:36 | EKG ---
Test Date: 2024-12-23 Test Time: 09:34:23 Security Systems Specialist: EVON MEASUREMENT RESULTS: Intervals: Rate: 93 NJ: 146 QRSD: 70 QT: 366 QTc: 455 [place]: P: 36 NJ: 146 QRS: 6 T: 24 INTERPRETIVE STATEMENTS: Normal sinus rhythm Inferior infarct, age undetermined Cannot rule out Anterior infarct, age undetermined Abnormal ECG Compared to ECG 12/05/2024 06:29:35 Sinus arrhythmia no longer present Myocardial infarct finding still present Electronically Signed On 12-26-24 11:32:57 CDT by Nish Johnson
== END 2024-12-23 15:08 | disposition short-term general hospital (02) ==
LOC: ER 09:12
DX: R42 Dizziness and giddiness (principal); R11.10 Vomiting, unspecified; C79.31 Secondary malignant neoplasm of brain; C79.51 Secondary malignant neoplasm of bone; F17.210 Nicotine dependence, cigarettes, uncomplicated
CPT/HCPCS: 96361; 93005; 85025; 80048; 36415; 83735; 85610; 80076; 85730; 84484; 70450; 71260; 74177; 71045; 96375; 96374; 99285; Q9967; J2550; J1100; J7040

== ENCOUNTER 2025-01-11 21:42 | Inpatient (IN) | payer OTHER ==
[2025-01-11] MEDS ORDERED: dexAMETHasone 10 MG/ML VIAL ONE (21:54)
[2025-01-11] MEDS ORDERED: D10W 250 ML IV ONE (21:59)
[2025-01-11] MEDS ORDERED: DEXTROSE 10%-WATER 0 ML IV ONE (21:59)
[2025-01-11 22:32] LABS: Absolute Basophils 0.1 K/uL (0-0.5); Absolute Lymphocytes (CBC) 1.5 K/uL (0.7-4.9); Absolute Monocytes 0.4 K/uL (0.1-1.3); Absolute Neutrophil 6.6 K/uL (1.8-8.0); Basophils % 0.6 % (0-1.3); Eosinophils % 0.4 % (0-4.4); Hematocrit 39.9 % (36.0-45.0); Hemoglobin 13.4 g/dL (12.0-15.0); Lymphocytes % 17.3 % (15.3-44.8); MCH 27.9 pg (27.0-35.0); MCHC 33.7 g/dL (32.0-36.0); MPV 8.6 fL (7.6-11.3); Monocytes % 4.4 % (3.3-12.3); Neutrophils % 77.3 % (41.7-73.7); Nucleated RBC Absolute Count 0.8 (0-0); Nucleated Red Blood Cells % 9.4 % (0-0); Platelets 112 thou/uL (152-406); RBC Red Blood Cell Count 4.81 M/uL (3.86-4.86); Red Cell Distribution Width 29.2 % (12.1-15.2)
--- NOTE | 2025-01-11 22:35 | RAD REPORT ---
EXAM: Chest Single View HISTORY: 70 years Female AMS COMPARISON: 12/23/2024 FINDINGS: LUNGS/PLEURA: Low lung volumes with hazy bilateral opacities. CARDIAC/MEDIASTINUM: The cardiac silhouette is within normal limits. UPPER ABDOMEN: No significant abnormality. BONES: No acute abnormality. LINES/TUBES/OTHER: N/A IMPRESSION: Hazy opacities bilaterally with low lung volumes could reflect either hypoventilation or edema. Consi nunu a dedicated PA and lateral to better assess when the patient's condition permits.
[2025-01-11 22:50] LABS: Albumin 1.6 g/dL (3.4-5.0); Albumin/Globulin Ratio 0.2 (1.1-1.8); Anion Gap 15.4 mEq/L (5.0-15.0); Bilirubin Total 14.6 mg/dL (0.2-1.0); Globulin 6.6 g/dL (2.3-3.5); Potassium 4.4 mEq/L (3.5-5.1); Protein, Total 8.2 g/dL (6.4-8.2)
[2025-01-11 22:53] LABS: PT Prothrombin Time 23.3 SECONDS (10-13.0); PTT, Activated Partial Thromb 52.5 SECONDS (27.2-37.4); Protime INR 2.12
[2025-01-11] MEDS ORDERED: NA CHLORIDE 0.9% 1,000 ML ONE ×2 (22:58→23:03)
[2025-01-11] MEDS ORDERED: D5 0.9 NS 1,000 ML IV ONE (22:58)
[2025-01-11] MEDS ORDERED: NA CHLORIDE 0.9% 100 ML ONE (23:07)
[2025-01-11] MEDS ORDERED: CEFEPIME 1 GM/VIAL ONE (23:07)
[2025-01-11 23:11] LABS: Specific Gravity 1.011 (1.005-1.030); Sqamous Epithelial <5 /HPF (None Seen); Urine Bacteria <20 /HPF (<20); Urine Bilirubin 3+ (Negative); Urine Blood Negative (Negative); Urine Clarity Extremely Turbid (Clear); Urine Color Dark-Yellow (Yellow); Urine Culture Reflex Order NOT NEEDED; Urine Glucose NEGATIVE (Negative); Urine Ketones NEGATIVE (Negative); Urine Microscopic Reflex YN ORDER UMIC; Urine Mucus Slight /HPF (None Seen); Urine Nitrite NEGATIVE (Negative); Urine Protein NEGATIVE (Negative); Urine RBC None Seen /HPF (None Seen); Urine Urobilinogen 1+ (Normal); Urine WBC <5 /HPF (<5); Urine pH 5.5 (5.0-7.0)
[2025-01-11 23:18] LABS: Band Neutrophils 20 % (0-1); Differential Total Cells Count 100; Lymphocytes 24 % (15-42); Metamyelocytes 1 % (0-0); Monocytes 2 % (0-10); Nucleated Red Blood Cells 12 /100WBC; Reactive Lymphocytes 1 %; Segmented Neutrophils 52 % (40-80)
[2025-01-11 23:20] LABS: Anisocytosis 3+; Blood Morphology Comment NOTED (NOT SEEN); Microcytosis 1+; Platelet Estimate ADEQ; Polychromasia 2+; Target Cells 1+
--- NOTE | 2025-01-12 02:44 | RAD REPORT ---
EXAM: CT Chest, Abdomen and Pelvis Without Intravenous Contrast CLINICAL HISTORY: metastatic cancer, hypotension, AMS TECHNIQUE: Axial computed tomography images of the chest, abdomen and pelvis without intravenous contrast. Sag ittal and coronal reformatted images were created and reviewed. This CT exam was performed using one or more of the following dose reduction techniques: automated exposure control, adjustment of t he mA and/or kV according to patient size, and/or use of iterative reconstruction technique. COMPARISON: CT Chest Abdomen Pelvis dated 12/23/2024 FINDINGS: Limitations: Technically limited secondary to lack of intravenous contrast and patient arm position ing. CHEST: Lungs: Bilateral subsegmental atelectasis/pleural parenchymal scar. No mass. Pleural space: Unremarkable. No significant effusion. No pneumothorax. Heart: Unremarkable. No cardiomegaly. No significant pericardial effusion. No significant cor onary artery calcifications. ABDOMEN: Liver: The liver is enlarged and inhomogeneous. Innumerable hypodense lesions seen on the previous study are less clearly delineated secondary to unenhanced technique and artifact from patient arm positioning. Gallbladder and bile ducts: There has been a cholecystectomy. No ductal dilation. Pancreas: Unremarkable. No ductal dilation. Spleen: Splenic parenchymal calcifications compatible with remote granulomatous organism exposure. Adrenals: Unremarkable. No mass. Kidneys and ureters: Unremarkable. No obstructing stones. No hydronephrosis. Stomach and bowel: Colonic diverticula without adjacent inflammatory change. No obstruction. No mucosal thickening. PELVIS: Appendix: No findings to suggest acute appendicitis. Bladder: The urinary bladder is decompressed by a Yeager catheter. No stones. Reproductive: There has been a hysterectomy. No adnexal cysts or masses are identified. CHEST, ABDOMEN and PELVIS: Intraperitoneal space: Small to moderate volume ascites, progressed from the prior. No free air. Bones/joints: Moderate degenerative changes at the glenohumeral joints bilaterally. Multilevel spon dylosis. Small lytic osseous lesions at the right posterior sixth rib, L5 vertebra, right iliac bone, right acetabulum and left parasymphyseal region again demonstrated. No acute fracture. No d islocation. Soft tissues: Unremarkable. Vasculature: Mild atherosclerotic disease. No aortic aneurysm. Lymph nodes: Calcified right hilar lymph nodes. IMPRESSION: 1. No focal infiltrate. 2. Hepatic metastases less clearly delineated secondary to unenhanced technique and artifact from p atient arm positioning. 3. Small to moderate volume ascites, progressed from the prior. 4. Scattered lytic osseous lesions which may reflect metastases, similar to the prior.. 5. Other findings as above. Electronically signed by: Archana Berger MD 01/12/2025 01:36 AM CDT Due to temporary technical issues with the PACS/Satellier reporting system, reports are being kelly d by the in-house radiologist without review as a courtesy to ensure prompt reporting the interpreting radiologist is fully responsible for the content of the report. Transcribed Date/Time: 01/12/2025 2:43 AM
--- NOTE | 2025-01-12 02:44 | RAD REPORT ---
PROCEDURE: CT Head Without Intravenous Contrast CLINICAL INDICATION: The patient is 70 years old and is Female; AMS. TECHNIQUE: Axial computed tomography images of the head/brain without intravenous contrast. Sagittal and coron al reformatted images were created and reviewed. This CT exam was performed using one or more of the following dose reduction techniques: automated exposure control, adjustment of the mA and/or kV according to patient size, and/or use of iterative reconstruction technique. COMPARISON: CT Head 12/23/2024. 12/06/2024 MRI brain (report only) FINDINGS: BRAIN: Left superior frontoparietal subcortical white matter low-attenuation, unchanged from prior ex am. No extra-axial fluid collection. No intracranial hemorrhage. No transtentorial herniation. No acute focal lopez-white matter differentiation abnormality. MIDLINE SHIFT: No midline shift. VENTRICLES: Unremarkable No ventriculomegaly. BONES/JOINTS: No fracture of the calvarium or visualized facial bones. SOFT TISSUES: Unremarkable SINUSES: No masses, bony erosion or evidence of acute sinusitis. MASTOID AIR CELLS: Unremarkable as visualized. No mastoid effusion. IMPRESSION: 1. No acute intracranial abnormality. 2. Left superior frontoparietal subcortical white matter low-attenuation, unchanged from prior exam . Of note, the patient's known intracranial metastases seen on prior MRI exam are not well appreciated on this noncontrasted CT study. Consider further characterization by pre and postcontrast brain MRI to evaluate for interval change. Electronically signed by: Samy Martinez MD 01/12/2025 01:40 AM CDT Due to temporary technical issues with the PACS/langtaojin reporting system, reports are being kelly d by the in-house radiologist without review as a courtesy to ensure prompt reporting the interpreting radiologist is fully responsible for the content of the report. Transcribed Date/Time: 01/12/2025 2:44 AM
--- NOTE | 2025-01-12 02:53 | EDPHYS ---
Physician Documentation [facility] Name: Chris Mahan Age: 70 yrs Sex: Female : 1955 Arrival Date: 01/11/2025 Time: 21:42 Bed 19 Private MD: ED Physician Landry Kwong HPI: 01/11 21:54 This 70 yrs old Black Female presents to ER via EMS with complaints of Altered Mental rn Status, Nose Bleed. 21:54 The patient presents with confusion, decreased mental status, decreased responsiveness, rn disorientation. Onset: The symptoms/episode began/occurred at an unknown time. Possible causes: unknown. Current symptoms: In the emergency department the patient's symptoms are unchanged from the initial presentation. The patient has experienced similar episodes in the past. The patient has been recently seen by a physician:. EMS brought patient in for AMS, unknown onset. Told by EMS that has history of breast cancer, unsure if getting treatment at this time. EMS initially called out for nosebleed but was no longer bleeding upon arrival. Patient noted to be altered and decreased responsiveness, glucose in the 30s. Given glucagon IM by EMS. No known trauma.. Historical: - Allergies: 21:48 No Known Allergies; al5 - Home Meds: 22:30 levocetirizine 5 mg oral tablet daily [Active]; omeprazole 20 mg Oral capsule,delayed vc1 release (e.c.) daily [Active]; meclizine 25 mg Oral tablet 2 times per day [Active]; losartan-hydrochlorothiazide 50-12.5 mg oral tablet daily [Active]; dexamethasone 2 mg Oral tablet 2 times per day [Active]; hydroxyzine HCl 25 mg Oral tablet 3 times per day [Active]; - PMHx: 21:48 Brain lesions-metastasis; depressive disorder; HS; Hypertensive disorder; Metastasis to al5 bone; breast cancer (Unknown Cancer ); - PSHx: 21:48 Cholecystectomy; drainage from buttocks; al5 - Immunization history:: Adult Immunizations unknown. - Infectious Disease History:: Denies. - Social history:: Smoking status: unknown. - Family history:: not pertinent. - Hospitalizations: : Patient was recently seen at. ROS: 21:54 Unable to obtain ROS due to altered mental status, rn Exam: 21:54 Constitutional: This is a well developed, well nourished patient who is awake, answers rn some questions, seems confused, stops midsentence Head/Face: Normocephalic, atraumatic. Eyes: Pupils equal and reactive. Scleral icterus present Cardiovascular: Regular rate and rhythm. No pulse deficits. Respiratory: Mild tachypnea Abdomen/GI: Soft, nontender Skin: No cyanosis, warm Neuro: Awake, answer some questions, oriented to person. Moves all 4 extremities with equal strength although exhibits generalized weakness. 23:37 ECG was reviewed by the Attending Physician. rn Vital Signs: 21:44 BP 102 / 90; Pulse 82; Resp 16; Temp 98; Pulse Ox 100% on R/A; Weight 98.88 kg; Height al5 5 ft. 7 in. ; 21:50 BP 80 / 29; Pulse 82; Resp 26; Pulse Ox 93% on 4 lpm NC; dd2 21:57 BP 88 / 35; Pulse 80; Resp 27; Pulse Ox 94% on 4 lpm NC; dd2 22:15 BP 86 / 53; Pulse 83; Resp 28; Pulse Ox 94% on 4 lpm NC; dd2 22:30 BP 60 / 34; Pulse 82; Resp 25; Pulse Ox 97% on 4 lpm NC; dd2 22:42 BP 90 / 77; Pulse 82; Resp 28; Pulse Ox 96% on 4 lpm NC; dd2 22:55 BP 84 / 64; Pulse 81; Resp 29; Pulse Ox 97% on 4 lpm NC; dd2 23:05 BP 101 / 69; Pulse 82; Resp 29; Pulse Ox 100% on 4 lpm NC; dd2 23:15 BP 113 / 85; Pulse 85; Resp 32; Pulse Ox 97% on 4 lpm NC; dd2 23:30 BP 125 / 73; Pulse 89; Resp 33; Pulse Ox 96% on 4 lpm NC; dd2 23:42 BP 114 / 90; rn 23:49 BP 114 / 90; Pulse 87; Resp 32; Pulse Ox 94% on 4 lpm NC; dd2 01/12 00:00 BP 110 / 66; Pulse 87; Resp 31; Temp 98.2; Pulse Ox 94% on 4 lpm NC; dd2 00:30 BP 112 / 96; Pulse 81; Resp 29; Pulse Ox 93% on 4 lpm NC; dd2 00:35 BP 112 / 96; rn 01:00 BP 114 / 57; Pulse 79; Resp 78; Pulse Ox 95% on 4 lpm NC; dd2 01:30 BP 105 / 77; Pulse 79; Resp 28; Pulse Ox 95% on 4 lpm NC; dd2 02:00 BP 113 / 70; Pulse 84; Resp 29; Pulse Ox 96% on 4 lpm NC; dd2 02:30 BP 112 / 67; Pulse 82; Resp 25; Temp 98.4; Pulse Ox 97% on 4 lpm NC; dd2 03:00 BP 128 / 70; Pulse 81; Resp 29; Pulse Ox 99% on 4 lpm NC; dd2 03:30 BP 114 / 70; Pulse 80; Resp 27; Temp 98.3; Pulse Ox 96% on 4 lpm NC; dd2 01/11 21:44 Body Mass Index 34.14 (98.88 kg, 170.18 cm) al5 MDM: 01/11 21:47 Medical Screening Exam initiated rn 23:00 ED course: Patient has elevated lactic acid. No source of infection identified at this rn time. Patient given 1 L bolus with initial response and blood pressure over 100 systolic. Will give second liter and reevaluate. Chest x-ray showed shows questionable pulmonary edema so will not give full 30 mL/kg bolus at this time until CT is obtained to rule out pulmonary edema, especially given patient's tachypnea and hypoxemia upon presentation, pulmonary edema is a possibility.. 23:24 ED course: Blood pressure has improved to 113/85. Fluids still going as a bolus. Sepsis rn reevaluation completed.. 01/12 02:49 Differential Diagnosis: electrolyte abnormality, hypoglycemia, pneumonia, UTI, volume rn depletion. Data reviewed: vital signs, nurses notes, lab test result(s), radiologic studies, CT scan, plain films, and as a result, I will admit patient. Consideration of Admission/Observation Patient was admitted/placed on observation. Escalation of care including admission/observation considered. Counseling: I had a detailed discussion with the patient and/or guardian regarding the historical points, exam findings, and any diagnostic results supporting the discharge/admit diagnosis, lab results, radiology results, the need for further work-up and treatment in the hospital. Response to treatment: the patient's symptoms have mildly improved after treatment. ED course: Patient overall has improved, mental status has improved. Glucose has stabilized. Patient has worsening renal function. No acute findings in CT head to suggest swelling or herniation. No new findings in CT chest abdomen or pelvis. Still no source of infection but given broad-spectrum antibiotics. Repeat lactic acid being sent. Blood pressure responded to 2 L bolus, currently 126/93 blood pressure. Sepsis reevaluation completed.. 01/11 21:50 Order name: Blood Culture Adult (2) rn 01/11 21:50 Order name: CBC with Diff; Complete Time: 23:55 rn 01/11 21:50 Order name: CMP; Complete Time: 22:58 rn 01/11 21:50 Order name: Lactate w/ 2H reflex if indic.; Complete Time: 22:58 rn 01/11 21:50 Order name: Protime (+inr); Complete Time: 22:58 rn 01/11 21:50 Order name: Ptt, Activated; Complete Time: 22:58 rn 01/11 21:50 Order name: Urinalysis w/ reflexes; Complete Time: 23:17 rn 01/11 22:04 Order name: AMMONIA; Complete Time: 22:58 rn 01/11 22:19 Order name: Glucose, Ancillary Testing; Complete Time: 22:58 EDMS 01/11 22:21 Order name: Glucose, Ancillary Testing; Complete Time: 22:58 EDMS 01/11 22:46 Order name: Manual Differential; Complete Time: 23:55 EDMS 01/11 22:55 Order name: Ghost Lactate-NO COLLECT Timer; Complete Time: 00:54 EDMS 01/12 03:23 Order name: Lactate w/ 2H reflex if indic. EDMS 01/12 03:23 Order name: Magnesium EDMS 01/12 03:23 Order name: Urinalysis w/ reflexes EDMS 01/12 03:23 Order name: CBC with Automated Diff EDMS 01/12 03:23 Order name: CBC with Automated Diff EDMS 01/12 03:23 Order name: Comprehensive Metabolic Panel EDMS 01/12 03:23 Order name: Comprehensive Metabolic Panel EDMS 01/12 03:57 Order name: Lactate Sepsis 2 HR Follow-up EDMS 01/12 04:50 Order name: Glucose, Ancillary Testing EDMS 01/12 07:37 Order name: Glucose, Ancillary Testing EDMS 01/12 09:13 Order name: Basic Metabolic Panel EDMS 01/12 09:13 Order name: Liver (Hepatic) Function EDLA 01/12 09:20 Order name: CBC with Automated Diff EDLA 01/12 11:16 Order name: Ghost Lactate-NO COLLECT Timer EDLA 01/12 11:33 Order name: Glucose, Ancillary Testing EDLA 01/12 14:20 Order name: Lactate Sepsis 2 HR Follow-up EDLA 01/11 21:50 Order name: Chest Single View XRAY; Complete Time: 22:58 rn 01/11 21:51 Order name: CT Head Brain wo Cont rn 01/11 21:52 Order name: CT Chest Abdomen Pelvis W/O Contrast rn 01/11 21:51 Order name: Accucheck; Complete Time: 22:55 rn 01/11 21:51 Order name: Cardiac monitoring; Complete Time: 22:55 rn 01/11 21:51 Order name: EKG - Nurse/Tech; Complete Time: 22:55 rn 01/11 21:51 Order name: IV Saline Lock - Large Bore; Complete Time: 22:55 rn 01/11 21:51 Order name: Labs collected and sent; Complete Time: 22:55 rn 01/11 21:51 Order name: O2 Per Protocol; Complete Time: 21:57 rn 01/11 21:51 Order name: O2 Sat Monitoring; Complete Time: 21:57 rn 01/11 21:51 Order name: Vital Signs; Complete Time: 22:55 rn EC/23 23:37 Rate is 83 beats/min. Rhythm is regular. QRS [place] is Normal. AL interval is normal. QRS rn interval is normal. QT interval is normal. No Q waves. T waves are Normal. No ST changes noted. Clinical impression: NSR w/ Non-specific ST/T Changes. Interpreted by me. Reviewed by me. Administered Medications: 21:57 Drug: Dexamethasone IM 10 mg IM once Route: IM; Site: right deltoid; al5 22:28 Follow up: Response: No adverse reaction dd2 22:34 CANCELLED (Other Intervention Used): d50w50 ml IVP once; (1 amp) vc1 22:55 Drug: D10 in Water IVP 250 ml IVP once Route: IVP; Site: left hand; al5 01/12 11:40 Follow up: Response: No adverse reaction ll1 01/11 23:06 Drug: D5-NS IV 1000 ml IV at 125 ml/hr continuous Route: IV; Rate: 125 ml/hr; Site: al5 left hand; 01/12 11:40 Follow up: Response: No adverse reaction; IV Status: Completed infusion; IV Intake: ll1 500ml 01/11 23:06 Drug: NS 0.9% IV 1000 ml IV at 1000 ml once; to be given as a bolus over 60 minutes al5 Route: IV; Rate: 1000 ml; Site: right antecubital; 01/12 00:06 Follow up: IV Status: Completed infusion dd2 01/11 23:06 Drug: NS 0.9% IV 1000 ml IV at 1000 ml once; to be given as a bolus over 60 minutes al5 Route: IV; Rate: 1000 ml; Site: right antecubital; 01/12 00:10 Follow up: IV Status: Completed infusion; IV Intake: 1000ml dd2 01/11 23:10 Drug: Cefepime IVPB 1 grams IVPB at 200 ml/hr once over 30 mins; (mix in NS 100 mL) al5 Route: IVPB; Rate: 200 ml/hr; Infused Over: 30 mins; Site: right antecubital; 23:45 Follow up: IV Status: Completed infusion; IV Intake: 100ml dd2 Disposition: 01/12 02:49 Critical Care:. rn Disposition Summary: 01/12/25 02:53 Hospitalization Ordered Notes: Hospitalization Status: Inpatient Admission rn Provider: Edmund Frost rn Condition: Stable rn Problem: new rn Symptoms: have improved rn Bed/Room Type: Standard rn [facility] Room Assignment: [facility](01/12/25 13:55) bd Diagnosis - Hypoglycemia, unspecified rn - Altered mental status, unspecified rn - Acute kidney failure, unspecified rn - Hypotension, unspecified test and turn up technician Instructions: - Discharge Summary Sheet al5 Forms: - Medication Reconciliation Form rn - SBAR form rn - Leadership Thank You Letter rn - Family Work Release al5 Critical care time excluding procedures: 02:49 Critical care time: Bedside Care: 70 minutes, Consultation: 5 minutes, Family rn Intervention: 5 minutes. Total time: 80 minutes Signatures: Dispatcher [employer] EDErin Bass Roman, MD MD rn Calcote, Vanessa, RN RN 1 Shanda Cota RN RN al5 DAGMAR MONTANO RN RN dd2 Jeana Vallecillo RN ll1 Corrections: (The following items were deleted from the chart) 01/11 21:49 21:48 PMHx: Unknown Cancer; al5 al5 21:51 21:51 BLOOD CULTURE*+BA.LAB.BRZ ordered. EDMS EDMS 21:51 21:51 CBC+H.LAB.BRZ ordered. EDMS EDMS 21:51 21:51 COMPREHENSIVE METABOLIC PANEL+C.LAB.BRZ ordered. EDMS EDMS 21:51 21:51 LACTATE+C.LAB.BRZ ordered. EDMS EDMS 21:51 21:51 PROTIME (+INR)+COAG.LAB.BRZ ordered. EDMS EDMS 21:51 21:51 PTT, ACTIVATED+COAG.LAB.BRZ ordered. EDMS EDMS 21:51 21:51 Urinalysis+U.LAB.BRZ ordered. EDMS EDMS 21:51 21:51 Chest Single View+RAD.RAD.BRZ ordered. EDMS EDMS 21:51 21:51 Head Brain Wo Cont+CT.RAD.BRZ ordered. EDMS EDMS 22:04 22:04 AMMONIA+C.LAB.BRZ ordered. EDMS EDMS 22:34 21:51 D50W IVP 50 ml IVP once; (1 amp) ordered. rn vc1 23:02 21:54 Constitutional: This is a well developed, well nourished patient who is awake, rn answers some questions, seems confused, stops midsentence Head/Face: Normocephalic, atraumatic. Eyes: Pupils equal and reactive Cardiovascular: Regular rate and rhythm. No pulse deficits. Respiratory: Mild tachypnea Abdomen/GI: Soft, nontender Skin: No cyanosis, warm Neuro: Awake, answer some questions, oriented to person. Moves all 4 extremities with equal strength although exhibits generalized weakness. rn 01/12 04:09 02:53 Telemetry/MedSurg (Inpatient) rn dd2 04: 02:53 rn dd2 13:55 04:09 [facility] [place] ER HOLD dd2 bd 13:55 04:09 ERHOLD- dd2 bd
--- NOTE | 2025-01-12 02:53 | ER ---
Nurse's Notes [facility] Name: Chris Mahan Age: 70 yrs Sex: Female : 1955 Arrival Date: 01/11/2025 Time: 21:42 Bed 19 Private MD: Diagnosis: Hypoglycemia, unspecified;Altered mental status, unspecified;Acute kidney failure, unspecified;Hypotension, unspecified Presentation: 01/11 21:44 Chief complaint: EMS states: toned out for altered mental status and nose bleed. al5 Coronavirus screen: At this time, the client does not indicate any symptoms associated with coronavirus-19. Ebola Screen: No symptoms or risks identified at this time. Initial Sepsis Screen: Does the patient meet any 2 criteria? Altered Mental Status. Initial Sepsis Screen: Does the patient have a suspected source of infection? No. Patient's initial sepsis screen is negative. Risk Assessment: Do you want to hurt yourself or someone else? Patient reports no desire to harm self or others. Note recent diagnosis of breast cancer, quit taking her medications about a month ago. Onset of symptoms was January 11, 2025. Care prior to arrival: Medication(s) given: Glucagon, Glucose check: 36. 21:44 Method Of Arrival: EMS: [facility] al5 21:44 Acuity: NANCY 3 al5 Triage Assessment: 21:49 General: Appears in no apparent distress. comfortable, Behavior is cooperative. Pain: al5 Denies pain. EENT: Sclera/Cornea jaundice. 21:49 Neuro: Level of Consciousness is awake, confused, Oriented to person. Cardiovascular: al5 Capillary refill < 3 seconds Patient's skin is warm and dry. Respiratory: Airway is patent Respiratory effort is even, unlabored, Respiratory pattern is regular, symmetrical. GI: : No signs and/or symptoms were reported regarding the genitourinary system. Derm: Skin is intact, Skin is dry, Skin temperature is warm. Musculoskeletal: No signs and/or symptoms reported regarding the musculoskeletal system. Historical: - Allergies: 21:48 No Known Allergies; al5 - Home Meds: 22:30 levocetirizine 5 mg oral tablet daily [Active]; omeprazole 20 mg Oral capsule,delayed vc1 release (e.c.) daily [Active]; meclizine 25 mg Oral tablet 2 times per day [Active]; losartan-hydrochlorothiazide 50-12.5 mg oral tablet daily [Active]; dexamethasone 2 mg Oral tablet 2 times per day [Active]; hydroxyzine HCl 25 mg Oral tablet 3 times per day [Active]; - PMHx: 21:48 Brain lesions-metastasis; depressive disorder; HS; Hypertensive disorder; Metastasis to al5 bone; breast cancer (Unknown Cancer ); - PSHx: 21:48 Cholecystectomy; drainage from buttocks; al5 - Immunization history:: Adult Immunizations unknown. - Infectious Disease History:: Denies. - Social history:: Smoking status: unknown. - Family history:: not pertinent. - Hospitalizations: : Patient was recently seen at. Screenin:30 [facility] ED Fall Risk Assessment (Adult) History of falling in the last 3 months, al5 including since admission No falls in past 3 months (0 pts) Confusion or Disorientation No (0 pts) Intoxicated or Sedated No (0 pts) Impaired Gait No (0 pts) Mobility Assist Device Used No (0 pt) Altered Elimination No (0 pt) Score/Fall Risk Level 0 - 2 = Low Risk Oriented to surroundings, Maintained a safe environment, Hourly rounding (assess needs \T\ fall precautionary measures) done. Abuse screen: Denies threats or abuse. Denies injuries from another. Nutritional screening: No deficits noted. Tuberculosis screening: No symptoms or risk factors identified. Assessment: 22:30 Reassessment: Patient appears in no apparent distress at this time. No changes from al5 previously documented assessment. Patient and/or family updated on plan of care and expected duration. Pain level reassessed. Patient is alert, oriented x 3, equal unlabored respirations, skin warm/dry/pink. 23:21 Reassessment: Patient appears in no apparent distress at this time. Patient and/or al5 family updated on plan of care and expected duration. Pain level reassessed. Patient is alert, oriented x 3, equal unlabored respirations, skin warm/dry/pink. patient aaox3, slow to response. 01/12 00:10 Reassessment: Patient appears in no apparent distress at this time. No changes from al5 previously documented assessment. Patient and/or family updated on plan of care and expected duration. Pain level reassessed. Patient is alert, oriented x 3, equal unlabored respirations, skin warm/dry/pink. 02:04 Reassessment: Patient appears in no apparent distress at this time. No changes from al5 previously documented assessment. Patient and/or family updated on plan of care and expected duration. Pain level reassessed. Patient is alert, oriented x 3, equal unlabored respirations, skin warm/dry/pink. Vital Signs: 01/11 21:44 BP 102 / 90; Pulse 82; Resp 16; Temp 98; Pulse Ox 100% on R/A; Weight 98.88 kg; Height al5 5 ft. 7 in. ; 21:50 BP 80 / 29; Pulse 82; Resp 26; Pulse Ox 93% on 4 lpm NC; dd2 21:57 BP 88 / 35; Pulse 80; Resp 27; Pulse Ox 94% on 4 lpm NC; dd2 22:15 BP 86 / 53; Pulse 83; Resp 28; Pulse Ox 94% on 4 lpm NC; dd2 22:30 BP 60 / 34; Pulse 82; Resp 25; Pulse Ox 97% on 4 lpm NC; dd2 22:42 BP 90 / 77; Pulse 82; Resp 28; Pulse Ox 96% on 4 lpm NC; dd2 22:55 BP 84 / 64; Pulse 81; Resp 29; Pulse Ox 97% on 4 lpm NC; dd2 23:05 BP 101 / 69; Pulse 82; Resp 29; Pulse Ox 100% on 4 lpm NC; dd2 23:15 BP 113 / 85; Pulse 85; Resp 32; Pulse Ox 97% on 4 lpm NC; dd2 23:30 BP 125 / 73; Pulse 89; Resp 33; Pulse Ox 96% on 4 lpm NC; dd2 23:42 BP 114 / 90; rn 23:49 BP 114 / 90; Pulse 87; Resp 32; Pulse Ox 94% on 4 lpm NC; dd2 01/12 00:00 BP 110 / 66; Pulse 87; Resp 31; Temp 98.2; Pulse Ox 94% on 4 lpm NC; dd2 00:30 BP 112 / 96; Pulse 81; Resp 29; Pulse Ox 93% on 4 lpm NC; dd2 00:35 BP 112 / 96; rn 01:00 BP 114 / 57; Pulse 79; Resp 78; Pulse Ox 95% on 4 lpm NC; dd2 01:30 BP 105 / 77; Pulse 79; Resp 28; Pulse Ox 95% on 4 lpm NC; dd2 02:00 BP 113 / 70; Pulse 84; Resp 29; Pulse Ox 96% on 4 lpm NC; dd2 02:30 BP 112 / 67; Pulse 82; Resp 25; Temp 98.4; Pulse Ox 97% on 4 lpm NC; dd2 03:00 BP 128 / 70; Pulse 81; Resp 29; Pulse Ox 99% on 4 lpm NC; dd2 03:30 BP 114 / 70; Pulse 80; Resp 27; Temp 98.3; Pulse Ox 96% on 4 lpm NC; dd2 01/11 21:44 Body Mass Index 34.14 (98.88 kg, 170.18 cm) al5 ED Course: 01/11 21:43 Patient arrived in ED. rv1 21:44 Shanda Cota, AIDE is Primary Nurse. al5 21:47 Landry Kwong MD is Attending Physician. rn 21:48 Triage completed. al5 21:48 Patient has correct armband on for positive identification. Bed in low position. Call al5 light in reach. Side rails up X2. Provided Education on: plan of care. 22:06 Inserted saline lock: 22 gauge in left wrist, using aseptic technique. Flushed with 10 kmf mL NS. 22:25 Accessed peripheral vein via ultrasound, utilizing dynamic ultrasound technique using vc1 ,sterile technique, per hospital protocol. Clean \T\ dry. Dressing intact. Good blood return. Flushes easily. 20g long in right AC. Missed attempt(s): 20 gauge in right upper arm. Bleeding controlled, band aid applied, catheter tip intact. 22:33 Chest Single View XRAY In Process Unspecified. EDMS 22:45 Yeager cath inserted, using sterile technique, 16 Fr., by ne, balloon inflated, to cr4 gravity drainage, urine specimen collected. Patient tolerated well. 23:29 Warm blanket given. wipped with ready bath and placed in hosp[ital gown.. cr4 01/12 00:39 CT Head Brain wo Cont In Process Unspecified. EDMS 00:39 CT Chest Abdomen Pelvis W/O Contrast In Process Unspecified. EDMS 02:05 No provider procedures requiring assistance completed. al5 02:52 Edmund Frost MD is Hospitalizing Provider. rn 11:39 Patient admitted, IV remains in place. ll1 11:40 Patient placed in an exam room, on a stretcher. ll1 Administered Medications: 01/11 21:57 Drug: Dexamethasone IM 10 mg IM once Route: IM; Site: right deltoid; al5 22:28 Follow up: Response: No adverse reaction dd2 22:34 CANCELLED (Other Intervention Used): d50w50 ml IVP once; (1 amp) vc1 22:55 Drug: D10 in Water IVP 250 ml IVP once Route: IVP; Site: left hand; al5 01/12 11:40 Follow up: Response: No adverse reaction ll1 01/11 23:06 Drug: D5-NS IV 1000 ml IV at 125 ml/hr continuous Route: IV; Rate: 125 ml/hr; Site: al5 left hand; 01/12 11:40 Follow up: Response: No adverse reaction; IV Status: Completed infusion; IV Intake: ll1 500ml 01/11 23:06 Drug: NS 0.9% IV 1000 ml IV at 1000 ml once; to be given as a bolus over 60 minutes al5 Route: IV; Rate: 1000 ml; Site: right antecubital; 01/12 00:06 Follow up: IV Status: Completed infusion dd2 01/11 23:06 Drug: NS 0.9% IV 1000 ml IV at 1000 ml once; to be given as a bolus over 60 minutes al5 Route: IV; Rate: 1000 ml; Site: right antecubital; 01/12 00:10 Follow up: IV Status: Completed infusion; IV Intake: 1000ml dd2 01/11 23:10 Drug: Cefepime IVPB 1 grams IVPB at 200 ml/hr once over 30 mins; (mix in NS 100 mL) al5 Route: IVPB; Rate: 200 ml/hr; Infused Over: 30 mins; Site: right antecubital; 23:45 Follow up: IV Status: Completed infusion; IV Intake: 100ml dd2 Medication: 01/12 02:05 VIS not applicable for this client. al5 Intake: 01/11 23:45 IV: 100ml; Total: 100ml. dd2 01/12 00:10 IV: 1000ml; Total: 1100ml. dd2 11:40 IV: 500ml; Total: 1600ml. 1 Outcome: 02:53 Decision to Hospitalize by Provider. rn 03:00 Admitted to ER Hold. Please see [facility] for further documentation. ll1 03:00 Condition: stable 03:00 Instructed on the need for admit, 15:14 Patient left the ED. ll1 Signatures: Dispatcher [employer] EDMS Winnie Guardado, RN RN cr4 Landry Kwong MD MD rn Lewis, Lynsay, RN RN ll1 Sylvie Love RN RN vc1 Villegas, Rebecca [facility] Shanda Cota RN RN al5 DAGMAR MONTANO RN RN dd2 Corrections: (The following items were deleted from the chart) 01/11 21:49 21:48 PMHx: Unknown Cancer; al5 al5 23:38 22:55 BP 84 / 64; Pulse 81bpm; Resp 19bpm; Pulse Ox 97% 4 lpm Nasal Cannula; dd2 dd 23:38 23:05 BP 101 / 69; Pulse 82bpm; Resp 20bpm; Pulse Ox 100% 4 lpm Nasal Cannula; dd2 dd 23:38 23:15 BP 113 / 85; Pulse 85bpm; Resp 20bpm; Pulse Ox 97% 4 lpm Nasal Cannula; dd2 dd2 23:38 21:57 BP 88 / 35; Pulse 80bpm; Resp 23bpm; Pulse Ox 94% 4 lpm Nasal Cannula; dd2 dd2 23:38 22:15 BP 86 / 53; Pulse 83bpm; Resp 24bpm; Pulse Ox 94% 4 lpm Nasal Cannula; dd2 dd2 23:49 22:42 BP 90 / 77; Pulse 82bpm; Resp 23bpm; Pulse Ox 96% 4 lpm Nasal Cannula; dd2 dd2 23:49 22:55 BP 84 / 64; Pulse 81bpm; Resp 26bpm; Pulse Ox 97% 4 lpm Nasal Cannula; dd2 dd2 23:49 23:05 BP 101 / 69; Pulse 82bpm; Resp 25bpm; Pulse Ox 100% 4 lpm Nasal Cannula; dd2 dd2 23:49 23:15 BP 113 / 85; Pulse 85bpm; Resp 26bpm; Pulse Ox 97% 4 lpm Nasal Cannula; dd2 dd01/12 02:07 01/11 21:49 EENT: No signs and/or symptoms were reported regarding the EENT system. al5 al5
[2025-01-12] MEDS ORDERED: ALPRAZOLAM 0.25 MG TABLET PO PRN (03:19)
[2025-01-12] MEDS ORDERED: ONDANSETRON 4 MG/2 ML VIAL IV PRN (03:19)
--- NOTE | 2025-01-12 03:23 | P.HP ---
Patient History Date of Service: 01/12/25 History of Present Illness: 70-year-old female with a past medical history recent breast cancer diagnosis with mets to the liver and brain, hypertension, presenting with weakness and inability to tolerate oral intake. The patient herself is confused and history is related with her daughter who is at bedside. She was supposed to meet with her oncologist Dr. Pickard as this breast cancer diagnosis was as recent as 2 weeks ago. She lives with her son. Her daughter denies any recent fever or chills. She states due to the inability to swallow pills or take anything by mouth she has not been taking her medication. Recently she has been having epistaxis Allergies No Known Allergies Allergy (Verified 07/01/22 15:35) Home Medications: Amox/Clavulanate [Augmentin 875-125 Tab] 1 tab PO BID 4 Days #8 tab 12/20/23 Doxycycline Hyclate 1 tab PO BID 12/05/24 Levocetirizine Dihydrochloride [Allergy Relief] 1 tab PO DAILY 12/05/24 Losartan/Hydrochlorothiazide [Losartan-Hctz 50-12.5 mg Tab] 1 tab DAILY 12/05/24 Meclizine HCl 1 tab PO BID 12/05/24 Omeprazole 1 tab PO DAILY 12/05/24 Hydrocodone 10/APAP 325 [[place] 10/325] 1 tab PO Q6H PRN #30 tab 12/13/24 Ondansetron [Zofran] 4 mg PO Q6H PRN #30 tab 12/13/24 - Past Medical/Surgical History Diabetic: No -: HS -: Hypertension -: Depression -: Surgery for HS - Social History Alcohol use: No CD- Drugs: No Caffeine use: Yes Review of Systems is unable to be obtained Physical Examination - Physical Exam General: Alert, Oriented x2 HEENT: Normocephalic, Scleral icterus Neck: Supple Respiratory: Clear to auscultation bilaterally Cardiovascular: No edema Capillary refill: <2 Seconds Gastrointestinal: Normal bowel sounds, Soft and benign Musculoskeletal: No clubbing Integumentary: No rashes, No breakdown Neurological: Normal strength at 5/5 x4 extr, Sensation intact Lymphatics: No axilla or inguinal lymphadenopathy - Studies Laboratory Data (last 24 hrs) 01/11/25 01/11/25 01/11/25 22:19 22:19 22:19 WBC 8.50 Hgb 13.4 Hct 39.9 Plt Count 112 L PT 23.3 H INR 2.12 APTT 52.5 H Sodium 135 L Potassium 4.4 BUN 21 H Creatinine 2.06 H Glucose 68 L Total Bilirubin 14.6 H AST 602 H ALT 332 H Alkaline Phosphatase 495 H Assessment and Plan - Plan Generalized weakness Acute metabolic encephalopathy Acute kidney injury Hypotension Hypoglycemia Breast cancer with mets to the liver and brain Transaminitis Hyperbilirubinemia Ascites Hidradenitis suppurativa Depression Admit to floor Start D5 half-normal saline, monitor blood sugar trend lactic acid, blood cultures pending Chest x-ray with infiltrate, start IV cefepime Consult oncology in the a.m. Recent biopsy showed adenocarcinoma Would likely benefit from a hospice consult Pain control with IV morphine IV Zofran for nausea DVT prophylaxis with heparin - Advance Directives Does patient have a Living Will: No Does patient have a Durable POA for Healthcare: No
[2025-01-12 04:36] VITALS: BMI 35.0
[2025-01-12] MEDS ORDERED: D5 0.45 NS 1,000 ML IV ONE (06:53)
[2025-01-12] MEDS: D5 0.45 NS 1,000 ML IV SCH (06:57)
[2025-01-12 08:58] LABS: Absolute Eosinophils 0.1 K/uL (0-0.5); Absolute Lymphocytes (CBC) 1.6 K/uL (0.7-4.9); Absolute Monocytes 0.4 K/uL (0.1-1.3); Absolute Neutrophil 7.2 K/uL (1.8-8.0); Basophils % 0.4 % (0-1.3); Eosinophils % 0.8 % (0-4.4); Hematocrit 35.9 % (36.0-45.0); Hemoglobin 12.2 g/dL (12.0-15.0); Lymphocytes % 17.2 % (15.3-44.8); MCHC 33.8 g/dL (32.0-36.0); MCV 82.7 fL (80-100); MPV 8.6 fL (7.6-11.3); Monocytes % 4.3 % (3.3-12.3); Neutrophils % 77.3 % (41.7-73.7); Nucleated RBC Absolute Count 0.6 (0-0); Nucleated Red Blood Cells % 6.1 % (0-0); Platelets 95 thou/uL (152-406); RBC Red Blood Cell Count 4.34 M/uL (3.86-4.86); Red Cell Distribution Width 29.4 % (12.1-15.2)
[2025-01-12] MEDS: HEPARIN 5000 UNIT/ML 1 ML VIAL SQ SCH (09:00)
[2025-01-12] MEDS: CEFEPIME 1 GM in NA CHLORIDE 0.9% 100 ML IV SCH (09:00)
[2025-01-12 09:07] LABS: Albumin 1.4 g/dL (3.4-5.0); Albumin/Globulin Ratio 0.3 (1.1-1.8); Bilirubin Direct 11.1 mg/dL (0-0.2); Bilirubin Indirect, Calculated 2.6 mg/dL (0.2-0.8); Bilirubin Total 13.7 mg/dL (0.2-1.0); Globulin 5.6 g/dL (2.3-3.5); Magnesium 2.5 mg/dL (1.6-2.4)
[2025-01-12] MEDS ORDERED: HEPARIN 5000 UNIT/ML 1 ML VIAL ONE (09:19)
[2025-01-12] MEDS ORDERED: NA CHLORIDE 0.9% 100 ML ONE (09:19)
[2025-01-12] MEDS ORDERED: CEFEPIME 1 GM/VIAL ONE (09:19)
--- NOTE | 2025-01-12 11:36 | P.PN ---
Date of Service: 01/12/25 Subjective: family reports patient recently diagnosed with metastatic cancer within the last few weeks Discussed goals of care with patient/family. Daughter confirmed DNR 01/12/25 and would like more info on hospice prior to making a final decision hasn't been able to keep much oral intake down reports some Epistaxis prior to admission, none reported since admission Physical Exam: GEN: Alert, orientedx1-2 , jaundiced, slow to respond CV: Regular rate and rhythm, no edema Pulm: Nonlabored respirations on 4L NC ABD: soft, nontender, nondistended Neuro: slow to answer, confused Yeager placed in ED. Problem List: Generalized weakness, Failure to thrive Metastatic adenocarcinoma; Breast primary with mets to liver and brain Acute metabolic encephalopathy Hypotension Intractable nausea / vomiting Elevated LFTs RENALDO Ascites Hidradenitis suppurativa Depression on admission, presents with generalized weakness, inability to tolerate oral intake, altered mentation. She was recently diagnosed with metastatic adenocarcinoma - primary breast cancer with mets to the liver and brain a few weeks ago. Recently hospitalized at [facility] for syncope, nausea, decreased appetite (12/23- 12/26) They did not find any infectious or cardiac issues at [facility]. MD at [facility] suspected weakness / failure to thrive secondary to her cancer and dehydration. Labwork at [facility] done 12/25/24: T. bili 1.8, AST 278, ALT 145, Creatinine 0.89. abdominal u/s done 12/25/24 noted numerous hepatic metastases, elevated hepatic arterial resistive indicines compatible with underlying hepatic parenchymal disease. Discharged with Zofran, Reglan, [place] with instructions to follow up with oncology for further management. CT chest/abd noted innumerable hepatic metastases, small-moderate ascites which have progressed, scattered lytic osseous lesions CT head negative for acute findings, noted similar findings compared to prior CT head 12/06. 01/11 - BP initially low 80/29, improved to 100s with IV fluids Given IM decadron, 2L IVF bolus, IV cefepime in ED LFTs significantly elevated (T. bili 14.6, AST 602, ALT 332) Lactic acid 7.6 01/12- Discussed goals of care with patient/family. Daughter confirmed DNR 01/12/25 as of now, no plans for aggressive measures; will discuss with other family members and get back to me regarding final decision of hospice, but suspects this will be route given all the info client services director consulted Dr. Pickard, oncology consulted - reviewed path, aggressive cancer, would need to resolve active liver/bili issues and recover outpatient before consideration of chemo/radiation even so, aggressive cancer, has innumerable mets to liver, several lesions in brain prognosis poor Trend lactate, follow blood cultures VTE: heparin sq Code: Confirmed DNR 01/12 likely hospice discussed with daughter this morning, no aggressive measures, for now ensure comfort and ok with IVF/abx Time Spent Managing Pts Care (In Minutes): 55
--- NOTE | 2025-01-12 12:09 | EKG ---
Test Date: 2025-01-11 Test Time: 23:06:23 Sheet Mill Supervisor: [facility] MEASUREMENT RESULTS: Intervals: Rate: 83 IN: 148 QRSD: 84 QT: 388 QTc: 455 [place]: P: 54 IN: 148 QRS: 30 T: 43 INTERPRETIVE STATEMENTS: Sinus rhythm with premature atrial complexes in a pattern of bigeminy Low voltage QRS Nonspecific T wave abnormality Abnormal ECG Compared to ECG 01/11/2025 22:56:41 Atrial premature complex(es) now present Low QRS voltage now present T-wave abnormality now present Indeterminate axis no longer present Myocardial infarct finding no longer present Electronically Signed On 01-12-25 12:08:14 CDT by Nish Johnson
--- NOTE | 2025-01-12 12:09 | EKG ---
Test Date: 2025-01-11 Test Time: 22:56:41 Curing Pickling Packer: [facility] MEASUREMENT RESULTS: Intervals: Rate: 83 AZ: 144 QRSD: 80 QT: 372 QTc: 437 Cameron: P: 127 AZ: 144 QRS: 92 T: 131 INTERPRETIVE STATEMENTS: Suspect arm lead reversal, interpretation assumes no reversal Unusual P axis, possible ectopic atrial rhythm Indeterminate axis Inferior infarct, age undetermined Cannot rule out Anterior infarct, age undetermined Abnormal ECG Compared to ECG 12/23/2024 09:34:23 Indeterminate axis now present Sinus rhythm no longer present Myocardial infarct finding still present Electronically Signed On 01-12-25 12:08:22 CDT by Nish Johnson
[2025-01-13 04:59] LABS: Absolute Lymphocytes (CBC) 1.6 K/uL (0.7-4.9); Absolute Monocytes 0.8 K/uL (0.1-1.3); Absolute Neutrophil 8.1 K/uL (1.8-8.0); Basophils % 0.2 % (0-1.3); Hematocrit 32.8 % (36.0-45.0); Hemoglobin 11.1 g/dL (12.0-15.0); Lymphocytes % 15.5 % (15.3-44.8); MCHC 33.7 g/dL (32.0-36.0); MPV 8.5 fL (7.6-11.3); Monocytes % 7.6 % (3.3-12.3); Neutrophils % 76.7 % (41.7-73.7); Nucleated RBC Absolute Count 0.6 (0-0); Nucleated Red Blood Cells % 6.1 % (0-0); Platelets 82 thou/uL (152-406); RBC Red Blood Cell Count 3.96 M/uL (3.86-4.86); Red Cell Distribution Width 29.9 % (12.1-15.2)
[2025-01-13 05:38] LABS: Albumin 1.4 g/dL (3.4-5.0); Albumin/Globulin Ratio 0.3 (1.1-1.8); Anion Gap 12.9 mEq/L (5.0-15.0); Bilirubin Total 13.8 mg/dL (0.2-1.0); Globulin 5.3 g/dL (2.3-3.5); Potassium 3.9 mEq/L (3.5-5.1); Protein, Total 6.7 g/dL (6.4-8.2)
[2025-01-13] MEDS: POTASSIUM CL SA 10 MEQ TAB PO ONE (08:45)
[2025-01-13 09:29] VITALS: TEMP 97.9
--- NOTE | 2025-01-13 11:37 | P.PN ---
Date of Service: 01/13/25 Subjective: mentation slightly improved. Aox2-3. recalls chatting with her family yesterday slow to respond, still somewhat confused / impaired family have chosen to proceed with choice hospice Physical Exam: GEN: Alert, orientedx2-3, jaundiced, slow to respond CV: Regular rate and rhythm, no edema Pulm: Nonlabored respirations on 3L NC ABD: soft, nontender, nondistended Neuro: slow to answer, confused Yeager placed in ED. Problem List: Generalized weakness, Failure to thrive Metastatic adenocarcinoma; Breast primary with mets to liver and brain Acute metabolic encephalopathy Gram positive bacteremia Hypotension Intractable nausea / vomiting Elevated LFTs RENALDO Ascites Hidradenitis suppurativa Depression on admission, presents with generalized weakness, inability to tolerate oral intake, altered mentation. She was recently diagnosed with metastatic adenocarcinoma - primary breast cancer with mets to the liver and brain a few weeks ago. Recently hospitalized at [facility] for syncope, nausea, decreased appetite (12/23- 12/26) They did not find any infectious or cardiac issues at [facility]. MD at [facility] suspected weakness / failure to thrive secondary to her cancer and dehydration. Labwork at [facility] done 12/25/24: T. bili 1.8, AST 278, ALT 145, Creatinine 0.89. abdominal u/s done 12/25/24 noted numerous hepatic metastases, elevated hepatic arterial resistive indicines compatible with underlying hepatic parenchymal disease. Discharged with Zofran, Reglan, [place] with instructions to follow up with oncology for further management. CT chest/abd noted innumerable hepatic metastases, small-moderate ascites which have progressed, scattered lytic osseous lesions CT head negative for acute findings, noted similar findings compared to prior CT head 12/06. 01/11 - BP initially low 80/29, improved to 100s with IV fluids Given IM decadron, 2L IVF bolus, IV cefepime in ED LFTs significantly elevated (T. bili 14.6, AST 602, ALT 332) Lactic acid 7.6 01/12- Discussed goals of care with patient/family. Daughter confirmed DNR 01/12/25 as of now, no plans for aggressive measures; will discuss with other family members and get back to me regarding final decision of hospice, but suspects this will be route given all the info Dr. Melly, oncology consulted - reviewed path, aggressive cancer, would need to resolve active liver/bili issues and recover outpatient before consideration of chemo/radiation even so, aggressive cancer, has innumerable mets to liver, several lesions in brain prognosis poor 01/13 - Mentation slightly improved. AOx2-3. Recalls talking with her family yesterday. Family have decided to proceed with choice hospice. DME ordered. social media editor assisting with dispo planning VTE: heparin sq Code: Confirmed DNR 01/12 Dispo: Family have decided to proceed with choice hospice 01/13 gate services supervisor consulted for assistance with dispo planning Time Spent Managing Pts Care (In Minutes): 45
[2025-01-13 11:57] VITALS: O2SAT 96
[2025-01-13 13:15] VITALS: BP 103/67
--- NOTE | 2025-01-14 06:51 | P.DS ---
Admission Date: 01/12/25 Discharge Date: 01/13/25 Disposition: HOSPICE-HOME Consultations: Oncology - Dr. Pickard Brief History of Present Illness: 70yo F, PMH: recent breast cancer diagnosis with mets to the liver and brain, hypertension Patient presenting with weakness and inability to tolerate oral intake. The patient herself is confused and history is related with her daughter who is at bedside. She was supposed to meet with her oncologist Dr. Pickard as this breast cancer diagnosis was as recent as 2 weeks ago. She lives with her son. Her daughter denies any recent fever or chills. She states due to the inability to swallow pills or take anything by mouth she has not been taking her medication. Recently she has been having epistaxis Hospital Course: Problem List: Generalized weakness, Failure to thrive Metastatic adenocarcinoma; Breast primary with mets to liver and brain Acute metabolic encephalopathy Gram positive bacteremia Hypotension Intractable nausea / vomiting Elevated LFTs RENALDO Ascites Hidradenitis suppurativa Depression Patient presented with generalized weakness, inability to tolerate oral intake, altered mentation secondary to aggressively progressed cancer. Family report patient was just recently diagnosed with metastatic adenocarcinoma - primary breast cancer with mets to the liver and brain a few weeks ago. They report more frequent hospitalizations over the last few months with similar symptoms but haven't been able to find a cause of symptoms. She was recently hospitalized ~3 weeks ago at [facility] from 12/23-12/26 for syncope, nausea, decreased appetite. Workup at [facility] was negative for any cardiac/infectious etiology. MD at [facility] suspected weakness / failure to thrive secondary to her cancer and dehydration. She received some antiemetics and pain medication and was advised to follow up with oncology for further management. Labwork on admission with significantly elevated LFTs (T. bili 14.6, AST 602, ALT 332), Lactic acid 7.8, creatinine 2.08. CT chest/abd/pelvis here noted innumerable hepatic metastases, small-moderate ascites which have progressed, scattered lytic osseous lesions. CT head with similar findings compared to CT done 1 month ago. Spoke to Dr. Pickard, oncologist who reviewed pathology and felt patient would need to resolve active liver/bili issues and recover outpatient before consideration of chemo/radiation. Even if she were to improve enough to get chemo/radiation, with this type of aggressive cancer with innumerable mets to liver and several brain lesions, advised patient and family prognosis remains poor. Discussed goals of care with patient/family given no significant improvement, failure to thrive, and worsening quality of life. Discussed she is at risk of an event in near future, and CPR would lead to more pain/suffering, unlikely to recover, and whether family have given any more though to DNR vs full code, and possibly comfort measures. Family decided to make patient DNR and would like to proceed with choice hospice. Physical Exam: GEN: Alert, orientedx2-3, jaundiced, slow to respond CV: Regular rate and rhythm, no edema Pulm: Nonlabored respirations on 3L NC ABD: soft, nontender, nondistended Neuro: slow to answer, confused Vital Signs/Physical Exam: Temp Pulse Resp BP Pulse Ox 97.9 F 73 28 H 103/67 94 01/13/25 12:00 01/13/25 12:00 01/13/25 12:00 01/13/25 12:00 01/13/25 12:00 Laboratory Data at Discharge: WBC 10.60 thou/uL (4.3-10.9) 01/13/25 04:33 Hgb 11.1 g/dL (12.0-15.0) L D 01/13/25 04:33 Hct 32.8 % (36.0-45.0) L 01/13/25 04:33 Plt Count 82 thou/uL (152-406) L 01/13/25 04:33 PT 23.3 SECONDS (10-13.0) H 01/11/25 22:19 INR 2.12 01/11/25 22:19 APTT 52.5 SECONDS (27.2-37.4) H 01/11/25 22:19 Sodium 138 mEq/L (136-145) 01/13/25 04:33 Potassium 3.9 mEq/L (3.5-5.1) 01/13/25 04:33 BUN 20 mg/dL (7-18) H 01/13/25 04:33 Creatinine 1.48 mg/dL (0.55-1.02) H 01/13/25 04:33 Glucose 121 mg/dL (74-106) H 01/13/25 04:33 Magnesium 2.5 mg/dL (1.6-2.4) H 01/12/25 08:38 Total Bilirubin 13.8 mg/dL (0.2-1.0) H 01/13/25 04:33 AST 641 U/L (15-37) H 01/13/25 04:33 ALT 339 U/L (13-56) H 01/13/25 04:33 Alkaline Phosphatase 367 U/L (45-117) H 01/13/25 04:33 Home Medications: Amox/Clavulanate [Augmentin 875-125 Tab] 1 tab PO BID 4 Days #8 tab 12/20/23 Doxycycline Hyclate 1 tab PO BID 12/05/24 Levocetirizine Dihydrochloride [Allergy Relief] 1 tab PO DAILY 12/05/24 Losartan/Hydrochlorothiazide [Losartan-Hctz 50-12.5 mg Tab] 1 tab DAILY 12/05/24 Meclizine HCl 1 tab PO BID 12/05/24 Omeprazole 1 tab PO DAILY 12/05/24 Hydrocodone 10/APAP 325 [[place] 10/325] 1 tab PO Q6H PRN #30 tab 12/13/24 Ondansetron [Zofran] 4 mg PO Q6H PRN #30 tab 12/13/24 Physician Discharge Instructions: Patient presented with generalized weakness, inability to tolerate oral intake, altered mentation secondary to aggressively progressed cancer. Family report patient was just recently diagnosed with metastatic adenocarcinoma - primary breast cancer with mets to the liver and brain a few weeks ago. They report more frequent hospitalizations over the last few months with similar symptoms but haven't been able to find a cause of symptoms. She was recently hospitalized ~3 weeks ago at [facility] from 12/23-12/26 for syncope, nausea, decreased appetite. Workup at [facility] was negative for any cardiac/infectious etiology. MD at [facility] suspected weakness / failure to thrive secondary to her cancer and dehydration. She received some antiemetics and pain medication and was advised to follow up with oncology for further management. Labwork on admission with significantly elevated LFTs (T. bili 14.6, AST 602, ALT 332), Lactic acid 7.8, creatinine 2.08. CT chest/abd/pelvis here noted innumerable hepatic metastases, small-moderate ascites which have progressed, scattered lytic osseous lesions. CT head with similar findings compared to CT done 1 month ago. Spoke to Dr. Pickard, oncologist who reviewed pathology and felt patient would need to resolve active liver/bili issues and recover outpatient before consideration of chemo/radiation. Even if she were to improve enough to get chemo/radiation, with this type of aggressive cancer with innumerable mets to liver and several brain lesions, advised patient and family prognosis remains poor. Discussed goals of care with patient/family given no significant improvement, failure to thrive, and worsening quality of life. Discussed she is at risk of an event in near future, and CPR would lead to more pain/suffering, unlikely to recover, and whether family have given any more though to DNR vs full code, and possibly comfort measures. Family decided to make patient DNR and would like to proceed with [facility]. Followup: JANIE LIMA [Primary Care Provider] - Time spent managing pt's care (in minutes): 45
== END 2025-01-13 14:24 | disposition hospice, home (50) | DRG 640 ==
LOC: ER 21:42 → ERHOLD 01-12 03:19 → 2ND 01-12 14:28
PROVIDERS: ADMIT Family Medicine; ATTEND Hospitalist
DX: E86.0 Dehydration (principal); G93.41 Metabolic encephalopathy; C78.7 Secondary malignant neoplasm of liver and intrahepatic bile duct; C79.31 Secondary malignant neoplasm of brain; N17.9 Acute kidney failure, unspecified; R18.8 Other ascites; R62.7 Adult failure to thrive; I10 Essential (primary) hypertension; E16.2 Hypoglycemia, unspecified; C50.919 Malignant neoplasm of unspecified site of unspecified female breast; F32.A Depression, unspecified; L73.2 Hidradenitis suppurativa; I95.9 Hypotension, unspecified; R53.1 Weakness; R74.01 Elevation of levels of liver transaminase levels; Z66 Do not resuscitate; Z51.5 Encounter for palliative care; Z68.35 Body mass index [BMI] 35.0-35.9, adult; Z90.49 Acquired absence of other specified parts of digestive tract; Z79.899 Other long term (current) drug therapy
CPT/HCPCS: 36415; 51702; 70450; 71045; 71250; 74176; 80048; 80053; 80076; 81001; 82140; 82947; 83605; 83735; 85025; 85610; 85730; 87040; 87205; 93005; 94760; 96372; 99285; J0692; J1100; J1644; J7030; J7042; J7799